=== PATIENT | female | born 1975 | race Caucasian/White ===

== ENCOUNTER 2018-07-07 11:02 | Emergency (ER) | payer OTHER ==
[~2018-07-07] VITALS: Ht 162.6 cm; Wt 53.1 kg
[~2018-07-07 11:02] MED LIST: CALC1.25T PO; CEPH500 PO; CHLO25 PO; ERGO50000 PO; GABA100 PO; HYDACE5 PO; IBUP800 PO; INSN100I SC; INSR10I SC; INSULANI SC; INSULANPEN SC; INSULIN; LANTUS; LORA1 PO; MULVITMINE PO; OMEP20ER PO; PANCREAZE; PROM25 PO; Pepcid40 MG PO; RXCLIN PO; [UNRECOGNIZED DRUG - REMARK]
[2018-07-07 11:54] LABS: BASOPHILS ABSOLUTE AUTO 0.03 K/mm3 (0.00-0.23); BASOPHILS PERCENT AUTO 1 % (0-2); EOSINOPHILS ABSOLUTE AUTO 0.03 K/mm3 (0.00-0.68); EOSINOPHILS PERCENT AUTO 1 % (0-6); Hematocrit 42.1 % (33.0-51.0); IMMATURE GRAN ABSOLUTE AUTO 0.04 K/mm3 (0.00-0.10); IMMATURE GRAN PERCENT AUTO 1 % (0-1); LYMPHOCYTES ABSOLUTE AUTO 1.47 K/mm3 (0.84-5.20); LYMPHOCYTES PERCENT AUTO 42 % (21-46); MONOCYTES ABSOLUTE AUTO 0.32 K/mm3 (0.16-1.47); MONOCYTES PERCENT AUTO 9 % (4-13); Mean Corpuscular HGB 35.6 pg (26.0-34.0); Mean Corpuscular HGB Conc 33.3 g/dL (31.5-36.5); Mean Corpuscular Volume 107 fL (80-100); Mean Platelet Volume 11.2 fL (9.1-12.4); NEUTROPHILS ABSOLUTE AUTO 1.59 K/mm3 (1.96-9.15); NEUTROPHILS PERCENT AUTO 46 % (41-73); Platelet Count 150 K/mm3 (150-400); RDW Coefficient Variation 12.6 % (11.7-14.2); RDW Standard Deviation 50.5 fL (35.1-46.3); Red Blood Cell Count 3.93 M/mm3 (3.80-5.20); White Blood Cell Count 3.48 K/mm3 (4.00-11.30)
[2018-07-07 12:05] LABS: Ethanol (Alcohol), Blood, Med 30 mg/dL
[2018-07-07 12:06] LABS: Alanine Aminotransfer (ALT/SGP 56 U/L (12-78); Albumin, Blood 3.3 g/dL (3.4-5.0); Albumin/Globulin Ratio 1.1 (0.8-1.8); Alk Phos 201 U/L (50-136); Anion Gap 6 mmol/L (6-16); Aspartate Aminotrans (AST/SGOT 75 U/L (12-37); Bilirubin, Total 0.1 mg/dL (0.1-1.0); Blood Urea Nitrogen 12 mg/dL (8-24); Bun/Creatinine Ratio 29.6 (12.0-20.0); CO2, Blood 28 mmol/L (21-32); Chloride, Blood 106 mmol/L (98-108); Creatinine, Blood 0.41 mg/dL (0.40-1.00); Glomerular Filtration Rate >60 (60-); Glucose, Blood 143 mg/dL (70-99); Potassium, Blood 3.7 mmol/L (3.5-5.5); Sodium, Blood 140 mmol/L (136-145); Total Protein, Blood 6.3 g/dL (6.4-8.2)
[2018-07-07 15:35] LABS: U Amphetamine Screen DETECTED; U Barbituate Screen Not Detected; U Benzodiazapine Screen Not Detected; U Cocaine Screen Not Detected; U Methamphetamine Screen DETECTED
[2018-07-07 15:36] LABS: U Buprenorphine Screen Not Detected; U Cannabinoids Screen Not Detected; U Methadone Screen Not Detected; U Opiates Screen Not Detected; U Oxycodone Screen Not Detected; U Phencyclidine Screen Not Detected; U Propoxyphene Screen Not Detected
== END 2018-07-07 16:39 | disposition home or self-care (01) ==
LOC: ER 11:02
PROVIDERS: Emergency Medicine
DX: E11.65 Type 2 diabetes mellitus with hyperglycemia (principal); F19.10 Other psychoactive substance abuse, uncomplicated; E11.649 Type 2 diabetes mellitus with hypoglycemia without coma; R41.82 Altered mental status, unspecified; Z88.2 Allergy status to sulfonamides; Z88.8 Allergy status to other drugs, medicaments and biological substances; Z88.1 Allergy status to other antibiotic agents; Z79.899 Other long term (current) drug therapy; Z79.4 Long term (current) use of insulin; F32.9 Major depressive disorder, single episode, unspecified; K21.9 Gastro-esophageal reflux disease without esophagitis; F17.210 Nicotine dependence, cigarettes, uncomplicated
CPT/HCPCS: 70450; 80053; 82947; 83690; 85025; 96365; 96366; 99285-25; G0480; J3411; J3475; J7042

== ENCOUNTER 2018-07-09 04:54 | Emergency (ER) | payer OTHER ==
[~2018-07-09] VITALS: Ht 162.6 cm; Wt 53.1 kg
[2018-07-09 05:42] LABS: BASOPHILS ABSOLUTE AUTO 0.03 K/mm3 (0.00-0.23); BASOPHILS PERCENT AUTO 1 % (0-2); EOSINOPHILS ABSOLUTE AUTO 0.02 K/mm3 (0.00-0.68); EOSINOPHILS PERCENT AUTO 0 % (0-6); Hematocrit 39.8 % (33.0-51.0); Hemoglobin 13.7 g/dL (11.5-16.0); IMMATURE GRAN ABSOLUTE AUTO 0.02 K/mm3 (0.00-0.10); IMMATURE GRAN PERCENT AUTO 0 % (0-1); LYMPHOCYTES PERCENT AUTO 48 % (21-46); MONOCYTES PERCENT AUTO 10 % (4-13); Mean Corpuscular HGB 35.3 pg (26.0-34.0); Mean Corpuscular HGB Conc 34.4 g/dL (31.5-36.5); Mean Platelet Volume 11.2 fL (9.1-12.4); NEUTROPHILS ABSOLUTE AUTO 2.06 K/mm3 (1.96-9.15); NEUTROPHILS PERCENT AUTO 41 % (41-73); Platelet Count 187 K/mm3 (150-400); RDW Coefficient Variation 12.5 % (11.7-14.2); RDW Standard Deviation 47.2 fL (35.1-46.3); Red Blood Cell Count 3.88 M/mm3 (3.80-5.20); White Blood Cell Count 5.03 K/mm3 (4.00-11.30)
[2018-07-09 05:50] LABS: Mean Corpuscular Volume 103 fL (80-100)
[2018-07-09 05:53] LABS: Magnesium, Blood 1.8 mg/dL (1.6-2.4)
[2018-07-09 05:56] LABS: Alanine Aminotransfer (ALT/SGP 52 U/L (12-78); Albumin, Blood 3.2 g/dL (3.4-5.0); Albumin/Globulin Ratio 1.1 (0.8-1.8); Alk Phos 179 U/L (50-136); Anion Gap 3 mmol/L (6-16); Aspartate Aminotrans (AST/SGOT 69 U/L (12-37); Bilirubin, Total 0.4 mg/dL (0.1-1.0); Blood Urea Nitrogen 14 mg/dL (8-24); Bun/Creatinine Ratio 34.3 (12.0-20.0); CO2, Blood 31 mmol/L (21-32); Calcium, Blood 7.8 mg/dL (8.5-10.1); Chloride, Blood 102 mmol/L (98-108); Creatinine, Blood 0.41 mg/dL (0.40-1.00); Ethanol (Alcohol), Blood, Med <3 mg/dL; Glomerular Filtration Rate >60 (60-); Glucose, Blood 219 mg/dL (70-99); Potassium, Blood 3.3 mmol/L (3.5-5.5); Sodium, Blood 136 mmol/L (136-145); Total Protein, Blood 6.2 g/dL (6.4-8.2)
== END 2018-07-09 06:58 | disposition home or self-care (01) ==
LOC: ER 04:54
PROVIDERS: Emergency Medicine
DX: E11.649 Type 2 diabetes mellitus with hypoglycemia without coma (principal); K21.9 Gastro-esophageal reflux disease without esophagitis; J44.9 Chronic obstructive pulmonary disease, unspecified; F17.210 Nicotine dependence, cigarettes, uncomplicated; Z79.899 Other long term (current) drug therapy; Z79.4 Long term (current) use of insulin
CPT/HCPCS: 36415; 80053; 82947; 83690; 83735; 85025; 96374; 96375; 99285-25; G0480; J0360

== ENCOUNTER 2019-01-22 01:15 | Emergency (ER) | payer OTHER | END 2019-01-22 02:35 | disposition left against medical advice (07) | LOC: ER 01:15 | DX: Z53.21 Procedure and treatment not carried out due to patient leaving prior to being seen by health care provider (principal) ==

== ENCOUNTER → 2019-01-22 | Outpatient (CLI) | payer OTHER ==
[~2019-01-22] MED LIST changes: +ALBU90OI6 INH; +BASAGLAR K100 UNIT/1 PO; +CETI5 PO; +EQ IBUPROFEN P1 EACH PO; +Flonase 0.05% N16 GM; +HYDPAM25 PO; +PANT40 PO; +Pepto-Bism525 MG/15 PO; +TUMS500 MG PO
== END | disposition home or self-care (01) ==
LOC: LAB SHORT 15:43 → LAB 15:43
DX: L03.031 Cellulitis of right toe (principal)
CPT/HCPCS: 87070; 87077; 87147; 87186; 87205

== ENCOUNTER 2019-02-10 00:50 | Day surgery (SDC) | payer OTHER | END 2019-02-10 23:03 | disposition home or self-care (01) | LOC: WOUND 00:50 | DX: E10.621 Type 1 diabetes mellitus with foot ulcer (principal); L97.512 Non-pressure chronic ulcer of other part of right foot with fat layer exposed; E55.9 Vitamin D deficiency, unspecified; F17.200 Nicotine dependence, unspecified, uncomplicated; I10 Essential (primary) hypertension; K86.1 Other chronic pancreatitis | CPT/HCPCS: 87071; 87075; 87077; 87147; 87186; 87205; G0463 ==

== ENCOUNTER 2019-02-14 00:05 | Day surgery (SDC) | payer OTHER | END 2019-02-14 22:35 | disposition home or self-care (01) | LOC: WOUND 00:05 | DX: E10.621 Type 1 diabetes mellitus with foot ulcer (principal); L97.511 Non-pressure chronic ulcer of other part of right foot limited to breakdown of skin; S91.302A Unspecified open wound, left foot, initial encounter; I10 Essential (primary) hypertension; E78.1 Pure hyperglyceridemia; F17.200 Nicotine dependence, unspecified, uncomplicated; Z88.1 Allergy status to other antibiotic agents; Z88.2 Allergy status to sulfonamides; Z88.8 Allergy status to other drugs, medicaments and biological substances; Z79.4 Long term (current) use of insulin; Z79.899 Other long term (current) drug therapy; X58.XXXA Exposure to other specified factors, initial encounter ==

== ENCOUNTER 2019-02-27 11:03 | Day surgery (SDC) | payer OTHER | END 2019-02-27 22:40 | disposition home or self-care (01) | LOC: WOUND 11:03 | DX: E10.621 Type 1 diabetes mellitus with foot ulcer (principal); L97.512 Non-pressure chronic ulcer of other part of right foot with fat layer exposed; I10 Essential (primary) hypertension; F17.200 Nicotine dependence, unspecified, uncomplicated ==

== ENCOUNTER 2019-03-06 00:30 | Day surgery (SDC) | payer OTHER | END 2019-03-06 22:52 | disposition home or self-care (01) | LOC: WOUND 00:30 | DX: E10.621 Type 1 diabetes mellitus with foot ulcer (principal); L97.512 Non-pressure chronic ulcer of other part of right foot with fat layer exposed; I10 Essential (primary) hypertension; F17.200 Nicotine dependence, unspecified, uncomplicated; E78.1 Pure hyperglyceridemia; Z79.899 Other long term (current) drug therapy ==

== ENCOUNTER 2019-03-13 14:21 | Day surgery (SDC) | payer OTHER | END 2019-03-13 22:59 | disposition home or self-care (01) | LOC: WOUND 14:21 | DX: E10.621 Type 1 diabetes mellitus with foot ulcer (principal); L97.512 Non-pressure chronic ulcer of other part of right foot with fat layer exposed; I10 Essential (primary) hypertension; F17.210 Nicotine dependence, cigarettes, uncomplicated; Z79.899 Other long term (current) drug therapy ==

== ENCOUNTER 2019-03-20 13:53 | Day surgery (SDC) | payer OTHER | END 2019-03-20 23:02 | disposition home or self-care (01) | LOC: WOUND 13:53 | DX: E10.621 Type 1 diabetes mellitus with foot ulcer (principal); L97.519 Non-pressure chronic ulcer of other part of right foot with unspecified severity; E10.52 Type 1 diabetes mellitus with diabetic peripheral angiopathy with gangrene; I96 Gangrene, not elsewhere classified; E55.9 Vitamin D deficiency, unspecified; E78.1 Pure hyperglyceridemia; F17.200 Nicotine dependence, unspecified, uncomplicated; I10 Essential (primary) hypertension; K86.1 Other chronic pancreatitis; Z88.1 Allergy status to other antibiotic agents; Z88.2 Allergy status to sulfonamides; Z88.8 Allergy status to other drugs, medicaments and biological substances; Z79.4 Long term (current) use of insulin; Z79.51 Long term (current) use of inhaled steroids; Z79.899 Other long term (current) drug therapy ==

== ENCOUNTER 2019-03-28 10:51 | Day surgery (SDC) | payer OTHER | END 2019-03-28 22:57 | disposition home or self-care (01) | LOC: WOUND 10:51 | DX: E10.621 Type 1 diabetes mellitus with foot ulcer (principal); L97.512 Non-pressure chronic ulcer of other part of right foot with fat layer exposed; I10 Essential (primary) hypertension; E78.1 Pure hyperglyceridemia; F17.200 Nicotine dependence, unspecified, uncomplicated; Z79.899 Other long term (current) drug therapy | CPT/HCPCS: G0463 ==

== ENCOUNTER 2019-04-30 13:43 | Emergency (ER) | payer OTHER ==
[~2019-04-30] VITALS: Ht 162.6 cm; Wt 47.8 kg
[2019-04-30 14:07] LABS: Source, Urine Clean Catch
[2019-04-30 14:17] LABS: Bilirubin, Urine Neg (Neg); Blood, Urine 5+ (Neg); Glucose Qualitative, Urine 4+ (Neg); Ketones, Urine 2+ (Neg); Leukocyte Esterase, Urine 2+ (Neg); Nitrite, Urine Neg (Neg); Protein, Urine 2+ (Neg); Urobilinogen, Urine NORM (Normal)
[2019-04-30 14:24] LABS: BASOPHILS ABSOLUTE AUTO 0.09 K/mm3 (0.00-0.23); BASOPHILS PERCENT AUTO 1 % (0-2); EOSINOPHILS ABSOLUTE AUTO 0.02 K/mm3 (0.00-0.68); EOSINOPHILS PERCENT AUTO 0 % (0-6); Hematocrit 41.4 % (33.0-51.0); Hemoglobin 14.4 g/dL (11.5-16.0); IMMATURE GRAN ABSOLUTE AUTO 0.23 K/mm3 (0.00-0.10); IMMATURE GRAN PERCENT AUTO 2 % (0-1); LYMPHOCYTES ABSOLUTE AUTO 1.61 K/mm3 (0.84-5.20); LYMPHOCYTES PERCENT AUTO 14 % (21-46); MONOCYTES PERCENT AUTO 7 % (4-13); Mean Corpuscular HGB Conc 34.8 g/dL (31.5-36.5); Mean Corpuscular Volume 98 fL (80-100); Mean Platelet Volume 11.3 fL (9.1-12.4); NEUTROPHILS ABSOLUTE AUTO 8.89 K/mm3 (1.96-9.15); NEUTROPHILS PERCENT AUTO 76 % (41-73); Platelet Count 201 K/mm3 (150-400); RDW Coefficient Variation 11.4 % (11.7-14.2); RDW Standard Deviation 41.1 fL (35.1-46.3); Red Blood Cell Count 4.23 M/mm3 (3.80-5.20); White Blood Cell Count 11.64 K/mm3 (4.00-11.30)
[2019-04-30 14:38] LABS: Appearance, Urine Hazy (Clear); Color, Urine Yellow (P-Yellow)
[2019-04-30 14:39] LABS: White Blood Cells, Urine 25-50 /hpf (0-5)
[2019-04-30 14:40] LABS: Bacteria Many /hpf; Squamous Epithelial Cells Few /hpf (Few)
[2019-04-30 14:43] LABS: Alanine Aminotransfer (ALT/SGP 18 U/L (12-78); Albumin, Blood 2.4 g/dL (3.4-5.0); Albumin/Globulin Ratio 0.6 (0.8-1.8); Alk Phos 241 U/L (50-136); Anion Gap 14 mmol/L (6-16); Aspartate Aminotrans (AST/SGOT 14 U/L (12-37); Bilirubin, Total 0.8 mg/dL (0.1-1.0); Blood Urea Nitrogen 15 mg/dL (8-24); Bun/Creatinine Ratio 20.7 (12.0-20.0); CO2, Blood 25 mmol/L (21-32); Calcium, Blood 8.7 mg/dL (8.5-10.1); Chloride, Blood 89 mmol/L (98-108); Creatinine, Blood 0.72 mg/dL (0.40-1.00); Globulin, Blood 4.3 g/dL (2.2-4.0); Glomerular Filtration Rate >60 (60-); Glucose, Blood 457 mg/dL (70-99); Sodium, Blood 128 mmol/L (136-145); Total Protein, Blood 6.7 g/dL (6.4-8.2); Troponin I <0.015 ng/mL (0.000-0.040)
[2019-04-30] MEDS ORDERED: CEFP200 PO (17:14)
[2019-04-30] MEDS ORDERED: ONDA4ODT MM (17:14)
== END 2019-04-30 17:38 | disposition home or self-care (01) ==
LOC: ER 13:43
PROVIDERS: Physician Assistant
DX: N39.0 Urinary tract infection, site not specified (principal); F17.210 Nicotine dependence, cigarettes, uncomplicated; Z88.1 Allergy status to other antibiotic agents; Z88.2 Allergy status to sulfonamides; Z88.8 Allergy status to other drugs, medicaments and biological substances; Z79.899 Other long term (current) drug therapy
CPT/HCPCS: 36415; 71046; 80053; 81001; 83690; 84484; 85025; 87077; 87086; 87186; 93005; 93010; 96361; 96374; 99284-25; A9270-GY; J2405; J7030

== ENCOUNTER → 2019-09-21 | Outpatient (CLI) | payer OTHER ==
[~2019-09-21] MED LIST changes: +CEFP200 PO; +ONDA4ODT MM
== END | disposition home or self-care (01) ==
LOC: LAB SHORT 17:58 → LAB 17:58
DX: R30.9 Painful micturition, unspecified (principal)
CPT/HCPCS: 87077; 87086; 87186

== ENCOUNTER → 2020-03-28 | Outpatient (CLI) | payer OTHER ==
[~2020-03-28] MED LIST changes: +ASPI81CH PO; +ATOR40TA PO; +B-1100 M2 PO; +BUSP5 PO; +CLOP75 PO; +CYCLOBENZAPRINE5 MG PO; +DISU250 PO; +FAMO20 PO; +FOLI1 PO; +FURO40 PO; -GABA100 PO; +GABA300 PO; +HUMULIN N100 UNIT/6 SC; -HYDPAM25 PO; +HYDROCODONE-AC1 EA10 PO; +Hydroxyzine HCl50 MG PO; +INSULIN LI100 UNIT/6 SC; +Keppra750 MG PO; +METF500C PO; +METO50ER PO; +NICO21TP TOP; +Norco 5-325 Ta1 EACH PO; +ONDA4ODT SL; +ONE-A-DAY PRO200 MCG PO; -PANCREAZE; +PANCREAZE DR 11 EAC2 PO; +VANCOCIN HCL250 MG PO
== END | disposition home or self-care (01) ==
LOC: LAB 17:00 → LAB SHORT 17:00
DX: R30.9 Painful micturition, unspecified (principal)
CPT/HCPCS: 87077; 87086; 87186

== ENCOUNTER 2020-04-30 15:17 | Emergency (ER) | payer OTHER ==
[~2020-04-30] VITALS: Ht 162.6 cm; Wt 43.1 kg
[~2020-04-30 15:17] MED LIST changes: -ALBU90OI6 INH; -ASPI81CH PO; -ATOR40TA PO; -B-1100 M2 PO; -BUSP5 PO; -CLOP75 PO; -CYCLOBENZAPRINE5 MG PO; -DISU250 PO; -FAMO20 PO; -FOLI1 PO; -FURO40 PO; -GABA300 PO; -HUMULIN N100 UNIT/6 SC; -HYDROCODONE-AC1 EA10 PO; -Hydroxyzine HCl50 MG PO; -INSULIN LI100 UNIT/6 SC; -Keppra750 MG PO; -METF500C PO; -METO50ER PO; -NICO21TP TOP; -Norco 5-325 Ta1 EACH PO; -ONDA4ODT SL; -ONE-A-DAY PRO200 MCG PO; -PANCREAZE DR 11 EAC2 PO; -VANCOCIN HCL250 MG PO
[2020-04-30 16:00] LABS: BASOPHILS ABSOLUTE AUTO 0.02 K/mm3 (0.00-0.23); BASOPHILS PERCENT AUTO 1 % (0-2); EOSINOPHILS ABSOLUTE AUTO 0.02 K/mm3 (0.00-0.68); EOSINOPHILS PERCENT AUTO 1 % (0-6); Hematocrit 28.3 % (33.0-51.0); Hemoglobin 9.5 g/dL (11.5-16.0); IMMATURE GRAN ABSOLUTE AUTO 0.01 K/mm3 (0.00-0.10); IMMATURE GRAN PERCENT AUTO 0 % (0-1); LYMPHOCYTES ABSOLUTE AUTO 2.13 K/mm3 (0.84-5.20); LYMPHOCYTES PERCENT AUTO 63 % (21-46); MONOCYTES ABSOLUTE AUTO 0.14 K/mm3 (0.16-1.47); MONOCYTES PERCENT AUTO 4 % (4-13); Mean Corpuscular HGB 33.2 pg (26.0-34.0); Mean Corpuscular HGB Conc 33.6 g/dL (31.5-36.5); Mean Corpuscular Volume 99 fL (80-100); Mean Platelet Volume 10.1 fL (9.1-12.4); NEUTROPHILS ABSOLUTE AUTO 1.09 K/mm3 (1.96-9.15); NEUTROPHILS PERCENT AUTO 32 % (41-73); Platelet Count 202 K/mm3 (150-400); RDW Coefficient Variation 14.7 % (11.7-14.2); RDW Standard Deviation 53.7 fL (35.1-46.3); Red Blood Cell Count 2.86 M/mm3 (3.80-5.20); White Blood Cell Count 3.41 K/mm3 (4.00-11.30)
[2020-04-30 16:25] LABS: Alanine Aminotransfer (ALT/SGP 36 U/L (12-78); Albumin, Blood 2.6 g/dL (3.4-5.0); Albumin/Globulin Ratio 0.7 (0.8-1.8); Alk Phos 1269 U/L (50-136); Anion Gap 10 mmol/L (6-16); Aspartate Aminotrans (AST/SGOT 60 U/L (12-37); Bilirubin, Total 0.5 mg/dL (0.1-1.0); Blood Urea Nitrogen 13 mg/dL (8-24); Bun/Creatinine Ratio 15.3 (12.0-20.0); CO2, Blood 28 mmol/L (21-32); Calcium, Blood 8.7 mg/dL (8.5-10.1); Chloride, Blood 99 mmol/L (98-108); Creatinine, Blood 0.85 mg/dL (0.40-1.00); Globulin, Blood 3.9 g/dL (2.2-4.0); Glomerular Filtration Rate >60 (60-); Glucose, Blood 162 mg/dL (70-99); Potassium, Blood 3.5 mmol/L (3.5-5.5); Sodium, Blood 137 mmol/L (136-145); Total Protein, Blood 6.5 g/dL (6.4-8.2)
[2020-04-30 17:03] LABS: Source, Urine Clean Catch
[2020-04-30 17:05] LABS: Appearance, Urine Cloudy (Clear); Bilirubin, Urine Neg (Neg); Blood, Urine 2+ (Neg); Color, Urine Yellow (P-Yellow); Glucose Qualitative, Urine Neg (Neg); Ketones, Urine Neg (Neg); Leukocyte Esterase, Urine 3+ (Neg); Nitrite, Urine Neg (Neg); Protein, Urine 2+ (Neg); Urobilinogen, Urine NORM (Normal)
[2020-04-30 17:12] LABS: Bacteria Many /hpf; Squamous Epithelial Cells Few /hpf (Few); White Blood Cells, Urine 50-100 /hpf (0-5)
== END 2020-04-30 18:33 | disposition left against medical advice (07) ==
LOC: ER 15:17
PROVIDERS: Physician Assistant
DX: R11.2 Nausea with vomiting, unspecified (principal); R10.9 Unspecified abdominal pain; Z53.21 Procedure and treatment not carried out due to patient leaving prior to being seen by health care provider; Z79.4 Long term (current) use of insulin; Z79.899 Other long term (current) drug therapy
CPT/HCPCS: 80053; 81001; 83690; 85025; 87077; 87086; 87186; 99284

== ENCOUNTER 2020-05-13 15:39 | Inpatient (IN) | payer OTHER ==
[~2020-05-13] VITALS: Ht 162.6 cm; Wt 47.0 kg
[2020-05-13 16:12] LABS: Source, Urine Catheter
[2020-05-13 16:33] LABS: Appearance, Urine Hazy (Clear); Bilirubin, Urine Neg (Neg); Blood, Urine 3+ (Neg); Color, Urine Yellow (P-Yellow); Glucose Qualitative, Urine 4+ (Neg); Ketones, Urine 1+ (Neg); Leukocyte Esterase, Urine 3+ (Neg); Nitrite, Urine Pos (Neg); Protein, Urine 3+ (Neg); Specific Gravity, Urine 1.015 (1.003-1.022); Urobilinogen, Urine NORM (Normal)
[2020-05-13 16:41] LABS: Red Blood Cells, Urine 0-2 /hpf (0-2); Squamous Epithelial Cells Mod /hpf (Few); White Blood Cells, Urine 25-50 /hpf (0-5)
[2020-05-13 16:42] LABS: Bacteria Many /hpf
[2020-05-13 17:12] LABS: Hematocrit 23.5 % (33.0-51.0); Hemoglobin 7.4 g/dL (11.5-16.0); Mean Corpuscular HGB 33.5 pg (26.0-34.0); Mean Corpuscular HGB Conc 31.5 g/dL (31.5-36.5); Mean Corpuscular Volume 106 fL (80-100); Mean Platelet Volume 10.2 fL (9.1-12.4); Platelet Count 146 K/mm3 (150-400); RDW Coefficient Variation 14.4 % (11.7-14.2); RDW Standard Deviation 55.8 fL (35.1-46.3); Red Blood Cell Count 2.21 M/mm3 (3.80-5.20); White Blood Cell Count 2.79 K/mm3 (4.00-11.30)
[2020-05-13 17:33] LABS: BASOPHILS PERCENT MAN 0 % (0-2); EOSINOPHILS ABSOLUTE MAN 0.05 K/mm3 (0.00-0.68); EOSINOPHILS PERCENT MAN 2 % (0-6); LYMPHOCYTES PERCENT MAN 54 % (21-46); MONOCYTES ABSOLUTE MAN 0.02 K/mm3 (0.16-1.47); MONOCYTES PERCENT MAN 1 % (4-13); NEUTROPHILS ABSOLUTE MAN 1.19 K/mm3 (1.96-9.15); SEG NEUTROPHILS PERCENT MAN 43 % (41-73); TOTAL CELLS COUNTED 100
[2020-05-13 17:35] LABS: Albumin, Blood 1.9 g/dL (3.4-5.0); Albumin/Globulin Ratio 0.5 (0.8-1.8); Bilirubin, Total 0.2 mg/dL (0.1-1.0); Bun/Creatinine Ratio 5.6 (12.0-20.0); Calcium, Blood 8.3 mg/dL (8.5-10.1); Creatinine, Blood 2.32 mg/dL (0.40-1.00); Globulin, Blood 3.6 g/dL (2.2-4.0); Magnesium, Blood 1.8 mg/dL (1.6-2.4); Phosphorus, Blood 3.5 mg/dL (2.5-4.9); Potassium, Blood 3.4 mmol/L (3.5-5.5); Total Protein, Blood 5.5 g/dL (6.4-8.2)
[2020-05-13] MEDS ORDERED: GABA300 PO (18:44)
[2020-05-13] MEDS ORDERED: PANCREAZE DR 11 EAC2 PO (18:44)
[2020-05-13] MEDS ORDERED: Hydroxyzine HCl50 MG PO (18:45)
[2020-05-13] MEDS ORDERED: METO50ER PO (18:46)
[2020-05-13] MEDS ORDERED: METF500C PO (18:46)
[2020-05-13] MEDS ORDERED: FOLI1 PO (18:47)
[2020-05-13] MEDS ORDERED: ONDA4ODT SL (18:47)
[2020-05-13] MEDS ORDERED: ALBU90OI6 INH (18:48)
[2020-05-13] MEDS ORDERED: FAMO20 PO (18:58)
--- NOTE | 2020-05-13 20:00 | NUR ---
BEENA ARRIVED TO THE FLOOR VIA GURNEY. TRANSFERRED TO BED. AOX3, PLEASANT AND COOPERATIVE. VERY ANXIOUS. TREMORS. HISTORY OF ETOH, DRINKS A PINT A DAY FOR THE PAST YEAR. NAUSEA AND VOMITING X5 DAYS. GUIAC NOTED IN ER. ABDOMINAL PAIN, MILD DISTENTION, HYPOACTIVE BOWEL TONES, POOR APPETITE, LOW WEIGHT. POOR SKIN TURGUR, DRY, NO SKIN BREAKDOWN. LUNGS CLEAR. HR SINUS. DENIES ANY PAIN OR DISCOMFORT. CIWA SCORE 12. WILL GIVE ATIVAN TO HELP. BLOOD AND ALBUMIN INFUSING. ALBUMIN COMPLETED WHILE IN ROOM. STARTED SANDASTATIN, POTASSIUM AND MULTIVITIAMIN BAG. WILL START PROTONIC WHEN BLOOD IS COMPLETED. CALL LIGHT WITH IN REACH.
[2020-05-14 01:48] LABS: BASOPHILS ABSOLUTE AUTO 0.03 K/mm3 (0.00-0.23); BASOPHILS PERCENT AUTO 1 % (0-2); EOSINOPHILS ABSOLUTE AUTO 0.07 K/mm3 (0.00-0.68); EOSINOPHILS PERCENT AUTO 2 % (0-6); Hematocrit 27.6 % (33.0-51.0); Hemoglobin 8.5 g/dL (11.5-16.0); IMMATURE GRAN ABSOLUTE AUTO 0.05 K/mm3 (0.00-0.10); IMMATURE GRAN PERCENT AUTO 2 % (0-1); LYMPHOCYTES ABSOLUTE AUTO 1.41 K/mm3 (0.84-5.20); LYMPHOCYTES PERCENT AUTO 41 % (21-46); MONOCYTES ABSOLUTE AUTO 0.21 K/mm3 (0.16-1.47); MONOCYTES PERCENT AUTO 6 % (4-13); Mean Corpuscular HGB 31.7 pg (26.0-34.0); Mean Corpuscular HGB Conc 30.8 g/dL (31.5-36.5); Mean Corpuscular Volume 103 fL (80-100); Mean Platelet Volume 10.2 fL (9.1-12.4); NEUTROPHILS ABSOLUTE AUTO 1.64 K/mm3 (1.96-9.15); NEUTROPHILS PERCENT AUTO 48 % (41-73); Platelet Count 121 K/mm3 (150-400); RDW Coefficient Variation 16.6 % (11.7-14.2); RDW Standard Deviation 63.5 fL (35.1-46.3); Red Blood Cell Count 2.68 M/mm3 (3.80-5.20); White Blood Cell Count 3.41 K/mm3 (4.00-11.30)
[2020-05-14 02:21] LABS: Albumin, Blood 2.3 g/dL (3.4-5.0); Albumin/Globulin Ratio 0.7 (0.8-1.8); Bilirubin, Total 0.5 mg/dL (0.1-1.0); Bun/Creatinine Ratio 5.9 (12.0-20.0); Calcium, Blood 7.7 mg/dL (8.5-10.1); Creatinine, Blood 2.03 mg/dL (0.40-1.00); Globulin, Blood 3.1 g/dL (2.2-4.0); Potassium, Blood 4.7 mmol/L (3.5-5.5); Total Protein, Blood 5.4 g/dL (6.4-8.2)
--- NOTE | 2020-05-14 05:43 | NUR ---
SHIFT SUMMARY: AOX3, VERY ANXIOUS ON ARRIVAL TO THE FLOOR, NAUSEA, VISUAL AND AUDITORY DISTURBANCES. CIWA 12. AFTER ADMISSION SHE WAS GIVEN 2MG OF ATIVAN WHICH SHE HAS SLEPT ALL NIGHT SINCE THEM. SHE DOES WAKE UP TO HER NAME. 1 UNIT OF PRBC GIVEN. 1 BANNANA BAG, POTASSIUM AND SANDASTATIN ALSO GIVEN. SHE HAS PROTONIX INFUSING AT 10ML/HR. ABDOMIN TENDER, SLIGHT DISTENTION, HYPOACTIVE BT. SKIN TURGOR POOR, POOR APPEITITE, POOR FLUID INTAKE, BM IN ER. VS WNL, AFEBRILE. TELE SHOWED SINUS. CIWA NOW 1, MIGHT CHANGE AFTER SHE IS MORE AWAKE. CALL LIGHT IS IN REACH, NO OTHER CHANGES TO REPORT.
[2020-05-14 10:08] LABS: Hematocrit 29.2 % (33.0-51.0); Hemoglobin 9.4 g/dL (11.5-16.0)
--- NOTE | 2020-05-14 13:43 | NUR ---
PT'S BP 175/114, ALL OTHER VSS. CALLED DR ALBERTO, SHE ORDERED RESTART OF PT'S HOME DOSE METOPROLOL, RESTARTING FIRST DOSE NOW, NEXT DOSE TOMORROW MORNING
--- NOTE | 2020-05-14 14:44 | NUR ---
BP 197/124, CALLED DR ALBERTO AND INFORMED. PT ASTYMPTOMATIC EXCEPT A SLIGHT HEADACHE, BUT PT IS WITHDRAWING, SO THIS COULD BE DUE TO THAT. DR ALBERTO SAYS SHE WILL TALK TO DR FRYE AND DETERMINE WHAT TO DO
--- NOTE | 2020-05-14 16:52 | NUR ---
CALLED DR ALBERTO AND INFORMED HER OF CBG OF 20 AND SHE ORDERED THAT PT BE CHANGED BACK TO LOW SLIDING SCALE, LIKELY A BRITTLE DIABETIC. PT ABLE TO DRINK JUICE AND EATING CRACKERS TO TREAT HYPOGLYCEMIA. ALSO TALKED TO DR ALBERTO ABOUT BP 178/116. SHE IS AWARE, ORDERED PRN IV LOBETALOL IF SYSTOLIC OVER 200
--- NOTE | 2020-05-14 17:54 | NUR ---
ADMIT: 05/13/20 DISCHARGE: DX: mega CC: cpeabody NEELIMA CALL: RESIDENCE: home CAREGIVER: Emergency contact: DAVID CRAIG ([place]) DX: chronic pancreatitis, htn, reflux , DM1, substance abuse, DME: pullups, cane, dm supplies CCM: no record HOME HEALTH: no record SUMMARY: Admit 05/13/20 05/14/20 Patient sleeping upon by visit. Left my name on White board for care coordination. Per Dr Soriano, Jena would like to stop drinking. I will ask aLcie from [facility] to visit with Jena to discuss. Needs GI work up, ED request denied, Dr Soriano will request again. Observation status, eta discharge Wednesday or . ASSESSMENT: 1. 45-year-old female coming in with possible sepsis in the setting of a persistent urinary tract infection. She has had recurrent urinary tract infections over the last several weeks.
--- NOTE | 2020-05-14 18:57 | NUR ---
RAPID RESPONSE 1641 PRE-DINNER CBG SHOWED 20. JUICE GIVEN X3, NÉSTOR CRACKERS GIVEN, PT AWAKE AND ABLE TO TAKE PO INTAKE. CBG 1700 DOWN TO 19 DESPITE JUICE. ENTERTAINMENT & MEDIA CORRESPONDENT CALLED, GLUCAGEN GIVEN AND D50. CBG CONSTANTINO TO 219. DR ALBERTO AT BEDSIDE DURING ENTERTAINMENT & MEDIA CORRESPONDENT, SHE ORDERS TRANSFER OF PT TO PCU FOR CLOSER MONITORING.
--- NOTE | 2020-05-14 19:03 | NUR ---
SHIFT SUMMARY BEENA WAS SLEEPY THIS SHIFT. WOKE UP TO EAT MEALS AND GOT UP TO BSC WITH AO1/2 PEOPLE WITH GAIT BELT, FULLY CONTINENT. . BLOOD PRESSURE HIGH, (SEE NOTE) THIS AFTERNOON, DR ALBERTO CALLED. WITHDRAWL SYMPTOMS PRESENT WITH AUDITORY AND VISUAL HALLUCINATIONS, SOME SLIGHT TREMORS. GAVE IV ATIVAN X3 THIS SHIFT. PER DAUGHTER, PT GETS VERY LETHARGIC PRIOR TO HER EARLIER DTS THAT SHE HAD TO BE TRANSFERRED TO NEW [facility] AND BE PUT IN A MEDICALLY INDUCED COMA FOR. PT MOSTLY ORIENTED EXCEPT FOR THESE HALLUCINTIONS WHICH SHE REALIZES AREN'T REAL. CBG LOW OF 20 THIS SHIFT AFTER TRANSITIONING HER FROM LOW SLIDING SCALE TO MEDIUM SLIDING SCALE AT LUNCH. VERY BRITTLE DIABETIC. HAND SHOES SEWER CALLED (SEE NOTE). CALLED GI CONSULT WHICH WAS DECLINED (SEE NOTE). ARRIVED ON PCU FLOOR AT 1814 AND REPORT GIVEN AT BEDSIDE TO FAVIO
--- NOTE | 2020-05-14 19:25 | NUR ---
PT ARRIVED IN THE UNIT VIA HOSPITAL BED, BEDSIDE REPORT RECEIVED FROM JENNY BAIRD, PT IS HERE POST RAPID RESPONSE DUE TO HYPOGLYCEMIA AND IS NOW ON Q1HR CBG CHECKS, HX OF ETOH WITHDRAWAL ON CIWA SCORES. PT IS ALERT AND ORIENTED BUT IS LETHARGIC FALLS ASLEEP QUICK BUT IS AROUSABLE. LAST CBG WAS 272, D10 BAG ON STANDBY PER REPORT FOR HYPOGLYCEMIA. PT ON IV ABO FOR SEPSIS, OCREOTIDE RUNNING AT 25MLS/HR. DAUGHTER AT BEDSIDE DURING TRANSFER AWARE AND UPDATED REGARDING PT'S CARE. PT IS NOW EATING DINNER WITH NO ISSUES. ATIVAN DOSE WAS GIVEN PRIOR TO TRANSFER PER REPORT. VITALS HR 80'S, BP SYSTOLIC 150'S, SATS ABOVE 95% ON RA, AFEBRILE. REPORT GIVEN TO NOC SHIFT RN, BED ALARM ON FOR SAFETY.
[2020-05-15 02:20] LABS: Source, Urine Catheter
[2020-05-15 02:23] LABS: Bilirubin, Urine Neg (Neg); Blood, Urine 1+ (Neg); Glucose Qualitative, Urine 2+ (Neg); Ketones, Urine Neg (Neg); Leukocyte Esterase, Urine 2+ (Neg); Nitrite, Urine Neg (Neg); Protein, Urine 2+ (Neg); Specific Gravity, Urine 1.005 (1.003-1.022); Urobilinogen, Urine NORM (Normal)
[2020-05-15 02:25] LABS: Appearance, Urine Clear (Clear); Color, Urine Yellow (P-Yellow)
[2020-05-15 02:36] LABS: Bacteria Few /hpf; Red Blood Cells, Urine 0-2 /hpf (0-2); Squamous Epithelial Cells Not Seen /hpf (Few)
--- NOTE | 2020-05-15 02:56 | NUR ---
15 F NOBLE INSERTED WITHOUT COMPLICATIONS USING STERILE TECHNIQUE. URINE SAMPLE SENT TO LAB. SEE NOBLE CATH INSERTION FOR ACTUAL INSERTION TIME. PT HAD A BLADDER SCAN GREATER THAN 800 CC.
[2020-05-15 04:22] LABS: BASOPHILS ABSOLUTE AUTO 0.02 K/mm3 (0.00-0.23); BASOPHILS PERCENT AUTO 1 % (0-2); EOSINOPHILS PERCENT AUTO 3 % (0-6); Hematocrit 24.2 % (33.0-51.0); Hemoglobin 8.2 g/dL (11.5-16.0); Mean Corpuscular HGB 33.1 pg (26.0-34.0); Mean Corpuscular HGB Conc 33.9 g/dL (31.5-36.5); Mean Platelet Volume 10.8 fL (9.1-12.4); Platelet Count 117 K/mm3 (150-400); RDW Coefficient Variation 16.8 % (11.7-14.2); RDW Standard Deviation 60.3 fL (35.1-46.3); Red Blood Cell Count 2.48 M/mm3 (3.80-5.20); White Blood Cell Count 3.93 K/mm3 (4.00-11.30)
[2020-05-15 04:33] LABS: IMMATURE GRAN ABSOLUTE AUTO 0.02 K/mm3 (0.00-0.10); IMMATURE GRAN PERCENT AUTO 1 % (0-1); LYMPHOCYTES ABSOLUTE AUTO 1.69 K/mm3 (0.84-5.20); LYMPHOCYTES PERCENT AUTO 43 % (21-46); MONOCYTES ABSOLUTE AUTO 0.21 K/mm3 (0.16-1.47); MONOCYTES PERCENT AUTO 5 % (4-13); Mean Corpuscular Volume 98 fL (80-100); NEUTROPHILS ABSOLUTE AUTO 1.89 K/mm3 (1.96-9.15); NEUTROPHILS PERCENT AUTO 48 % (41-73)
[2020-05-15 05:02] LABS: Albumin/Globulin Ratio 0.6 (0.8-1.8); Bilirubin, Total 0.3 mg/dL (0.1-1.0); Bun/Creatinine Ratio 8.6 (12.0-20.0); Calcium, Blood 8.1 mg/dL (8.5-10.1); Creatinine, Blood 1.62 mg/dL (0.40-1.00); Globulin, Blood 3.2 g/dL (2.2-4.0); Potassium, Blood 3.8 mmol/L (3.5-5.5); Total Protein, Blood 5.2 g/dL (6.4-8.2)
--- NOTE | 2020-05-15 06:02 | NUR ---
CIWA VARIED FROM Q 2 HOURS - 4 HOURS TONIGHT, SEE CIWA CHARTING. NOBLE INSERTED LAST NOC DUE TO URINE RETENTION - SEE BLADDER SCAN RESULTS. NO S/S OF BLEEDING - PT HERE WITH GIB. PT'S SKIN COLOR IS PALE. PT IS FRAIL IN HER APPEARANCE. PT SLEPT APPX 6 -7 HOURS TONIGHT. NO ACUTE CHANGES THROUGHOUT THE NIGHT. BED ALARM ON. CALL LIGHT WITHIN REACH. FLUIDS AT BEDSIDE. BED IN LOW POSITION.
--- NOTE | 2020-05-15 12:08 | NUR ---
SUMMARY: Admit 05/13/20 05/15/20- per chart review with Dr. Soriano, pt is a brittle diabetic and has increased in confusion. Pt is also experiencing ETOH withdrawal. Met with pt, she appears very confused about her care. Nurse was in the room giving her medications. Pt requested some food from me. Nurse stated that she would get her something to eat. Pt not of sound mind to discuss her ETOH abuse and treatment options at this time. No est ETA for d/c at this time either. -lenora
--- NOTE | 2020-05-15 13:53 | NUR ---
PT IS ALERT TO SELF SOME CONFUSION NOTED, LETHARGIC AT TIMES. CIWA SCORES 10-12 ATIVAN AND LIBRIUM GIVEN PRN FOR WITHDRAWAL SYMPTOMS. PT ATE BREAKFAST WITH NO ISSUES SOMEHOW KNOCKED HER TRAY OFF OF HER TABLE PLATES AND UTENSILS FOUND BROKEN ON THE FLOOR WHEN PT WAS ASKED WHAT HAPPENED PT STATED SHE GOT UPSET AND KNOCKED THE TRAY OFF. CHARGE NURSE WAS IN THE ROOM REMINDED PT ABOUT HER BEHAVIOR, PT GOT SOMEHOW AGITATED WAS TEARY EYED SAYING SHE WAS SICK ATTEMPTED TO GET OUT OF BED, ATIVAN 2MG DOSE GIVEN AND PT GOT RESTED. MILD HALLUCINATION ALSO NOTED PT TRYING TO FEED HERSELF WITH NOTHING ON HER HANDS, PT THEN CONSISTENTLY ASKING FOR FOOD SNACKS GIVEN IN BETWEEN MEALS,CBG REMAINED ON THE 200-300 RANGE INSULIN LOW SLIDING SCALE DOSE WAS GIVEN. VITALS HAS BEEN STABLE, PT ON RA AFEBRILE. DENIES CHEST PAIN/PRESSURE HAS MILD HEADACHE. NO OTHER ISSUES OF THIS TIME. WILL CONTINUE TO MONITOR UNTIL END OF SHIFT
--- NOTE | 2020-05-15 18:38 | NUR ---
PT SUMMARY: SEE PREVIOUS NOTES. CIWA SCORE RANGING 10-13, PT REMAINS CONFUSED HAS VISUAL HALLUCINATIONS, MILD TREMORS, ATTEMPTING TO GET OUT OF BED. DAUGHTER WAS CALLED AND CAME IN TO VISIT PT, PT WAS EMOTIONAL AND TEARY EYED, TRYING TO TAKE OFF HER GOWN STATING SHE WANTS TO GO HOME, PT DOESN'T SEEM TO FULLY UNDERSTAND THAT SHE'S AT THE HOSPITAL AND IS SICK. DAUGHTER CAME IN TO HELP CALM THE PT DOWN, PT WAS ABLE TO EAT 100% OF HER DINNER, CBG STABLE AT 140'S. DR ALBERTO RECOMMENDED SNACK BETWEEN MEALS TO PREVENT HYPOGLYCEMIA. OCREOTIDE GTT RUNNING AT 25MLS/HR, CATHETER DRAINING PATENT VIA GRAVITY HAD 850MLS URINE OUT FOR THE SHIFT, NO REPORTED BM. PT RECEIVED LIBRIUM X2 DOSES AND ATIVAN X3 DOSES FOR THE SHIFT, PT IS NOW CURRENTLY IN BED RESTING, CALL LIGHTS IN REACH, BED ALARM ON FOR SAFETY, WILL REPORT TO ONCOMING SHIFT
[2020-05-16 04:09] LABS: BASOPHILS ABSOLUTE AUTO 0.02 K/mm3 (0.00-0.23); BASOPHILS PERCENT AUTO 1 % (0-2); EOSINOPHILS ABSOLUTE AUTO 0.07 K/mm3 (0.00-0.68); EOSINOPHILS PERCENT AUTO 2 % (0-6); Hematocrit 24.6 % (33.0-51.0); IMMATURE GRAN ABSOLUTE AUTO 0.01 K/mm3 (0.00-0.10); IMMATURE GRAN PERCENT AUTO 0 % (0-1); LYMPHOCYTES ABSOLUTE AUTO 1.89 K/mm3 (0.84-5.20); LYMPHOCYTES PERCENT AUTO 48 % (21-46); MONOCYTES PERCENT AUTO 5 % (4-13); Mean Corpuscular HGB 32.4 pg (26.0-34.0); Mean Corpuscular HGB Conc 32.5 g/dL (31.5-36.5); Mean Corpuscular Volume 100 fL (80-100); Mean Platelet Volume 11.1 fL (9.1-12.4); NEUTROPHILS ABSOLUTE AUTO 1.77 K/mm3 (1.96-9.15); NEUTROPHILS PERCENT AUTO 45 % (41-73); Platelet Count 127 K/mm3 (150-400); RDW Coefficient Variation 17.3 % (11.7-14.2); RDW Standard Deviation 63.2 fL (35.1-46.3); Red Blood Cell Count 2.47 M/mm3 (3.80-5.20); White Blood Cell Count 3.96 K/mm3 (4.00-11.30)
[2020-05-16 04:30] LABS: Albumin, Blood 1.8 g/dL (3.4-5.0); Albumin/Globulin Ratio 0.6 (0.8-1.8); Bilirubin, Total 0.5 mg/dL (0.1-1.0); Bun/Creatinine Ratio 9.6 (12.0-20.0); Calcium, Blood 7.9 mg/dL (8.5-10.1); Creatinine, Blood 1.56 mg/dL (0.40-1.00); Total Protein, Blood 4.8 g/dL (6.4-8.2)
--- NOTE | 2020-05-16 05:24 | NUR ---
SHIFT SUMMARY PT SLEPT T/O SHIFT. CIWA SCORE 7-14. MEDICATED PER EMAR. BP STABLE. HR STABLE. PT ALERT TO SELF, LOCATION, SITUATION. UNSURE OF DATE. BED ALARM IN PLACE FOR PT SAFETY. OXYGEN SATURATION MAINTINED ABOVE 95% ON RA. PT REPOSITIONED Q [address] D/T BOWEL INCONTINENCE. NOBLE PATENT AND TO GRAVITY DRAIN. WILL CONTINUE TO MONITOR UNTIL REPORT GIVEN TO DAYSHIJOSE EDUARDO BAIRD.
--- NOTE | 2020-05-16 10:53 | NUR ---
PT IS SLEEPING SOUNDLY. WILL WAIT TILL PATIENT IS AWAKE BEFORE ATTEMPTING NEW CIWA'S. PT APPEARS TO BE IN NO DISTRESS. WILL CONTINUE TO MONITOR.
--- NOTE | 2020-05-16 18:16 | NUR ---
PT HAS SLEPT MOST OF THE SHIFT. HER NOON CIWA WAS DONE WHILE SHE WAS SLEEPING. WHILE AWAKE PT HAD CIWA OF 8-9. ATIVAN GIVEN PER EMAR. PT WAS ABLE TO EAT DINNER WITH ASSISTANCE. BEDBATH GIVEN THIS MORING. PT HAS HAD NO HALLUCINATIONS THIS SHIFT. NOBLE MARCELINO . CALL LIGHT WITHIN REACH.
--- NOTE | 2020-05-16 21:18 | NUR ---
ASPIRATION RISK PT UNABLE TO DIRECT TO SWALLOW PO MEDICATIONS AT THIS TIME. UNABLE TO TAKE SIPS OF WATER. BLOOD GLUCOSE AT 203. 2 UNITS OF INSULIN ORDERED FOR BLOOD GLUCOSE OVER 200. D/T PT'S SENSITIVITY TO INSULIN AND HX OF HYPOGLYCEMIA AFTER INSULIN ADMINISTRATION. HOLDING INSULIN THIS NOC. ALSO, HOLDING PO MEDICATIONS D/T ASPIRATION RISK.
--- NOTE | 2020-05-16 22:42 | NUR ---
PHYSICIAN NOTIFIED PHYSICIAN NOTIFIED OF PT UNABLE TO TOLERATE PO OMNICEF THIS NOC. PHYSICIAN CONSULTING PHARMACY. PHYSICIAN NOTIFIED OF PT'S SWOLLEN/BRUISED R ANKLE. INSTURCTED TO PASS ALONG INFORMATION TO [employer] FOR DIRECTION.
--- NOTE | 2020-05-17 05:39 | NUR ---
SHIFT SUMMARY PT ALERT AND ORIENTED TO SELF AND LOCATION AT TIMES. HAVING HALLUCINATIONS T/O NIGHT. CIWA SCORE 4-13. MEDICATED PER EMAR. DEPENDS IN PLACE D/T FECAL INCONTINENCE. NOBLE PATENT AND TO GRAVITY DRAIN. HR STABLE. BP STABLE. OXYGEN SATURATION MAINTAINED ABOVE 92% ON RA. PHYSICIAN NOTIFIED OF PT'S ASPIRATION RISK AND PO MEDICATIONS SCHEDULED. PHYSICIAN NOTIFIED OF SWELLING/BRUISING IN PT'S R ANKLE. NO ORDERS AT THIS TIME. WILL PASS ONTO DAYSHIFT. REPOSITIONED Q 2 HRS. WILL CONTINUE TO MONITOR UNTIL REPORT GIVEN TO DAYSHIFT RN.
[2020-05-17 06:04] LABS: BASOPHILS ABSOLUTE AUTO 0.02 K/mm3 (0.00-0.23); BASOPHILS PERCENT AUTO 1 % (0-2); EOSINOPHILS ABSOLUTE AUTO 0.05 K/mm3 (0.00-0.68); EOSINOPHILS PERCENT AUTO 1 % (0-6); Hematocrit 25.3 % (33.0-51.0); Hemoglobin 8.2 g/dL (11.5-16.0); IMMATURE GRAN ABSOLUTE AUTO 0.01 K/mm3 (0.00-0.10); IMMATURE GRAN PERCENT AUTO 0 % (0-1); LYMPHOCYTES PERCENT AUTO 37 % (21-46); MONOCYTES ABSOLUTE AUTO 0.27 K/mm3 (0.16-1.47); MONOCYTES PERCENT AUTO 6 % (4-13); Mean Corpuscular HGB 32.8 pg (26.0-34.0); Mean Corpuscular HGB Conc 32.4 g/dL (31.5-36.5); Mean Corpuscular Volume 101 fL (80-100); Mean Platelet Volume 10.5 fL (9.1-12.4); NEUTROPHILS ABSOLUTE AUTO 2.41 K/mm3 (1.96-9.15); NEUTROPHILS PERCENT AUTO 55 % (41-73); Platelet Count 133 K/mm3 (150-400); RDW Coefficient Variation 17.5 % (11.7-14.2); RDW Standard Deviation 65.2 fL (35.1-46.3); White Blood Cell Count 4.36 K/mm3 (4.00-11.30)
[2020-05-17 06:24] LABS: Albumin, Blood 1.7 g/dL (3.4-5.0); Albumin/Globulin Ratio 0.6 (0.8-1.8); Bilirubin, Total 0.2 mg/dL (0.1-1.0); Bun/Creatinine Ratio 11.5 (12.0-20.0); Calcium, Blood 7.9 mg/dL (8.5-10.1); Creatinine, Blood 1.22 mg/dL (0.40-1.00); Potassium, Blood 3.6 mmol/L (3.5-5.5); Total Protein, Blood 4.7 g/dL (6.4-8.2)
--- NOTE | 2020-05-17 12:35 | NUR ---
pt very somulant this am, has eyes closed most of the time, wakes very briefly with name. is moving herself around the bed, repositioned her, too sleepy to give po meds, did give her a sip of water when she asked for it and there was some coughing after, will check with Dr. prior to feeding her, she doesn't really have any withdrawl symptoms as she's too sleepy, her v.s. are stable, lungs are clear, dim in bases, resp even and unlabored, no cough noted, hrr, tele in place running sr per monitor, see strip, no edema noted, but right foot is bruised and swollen, pp faint, cap refill <3sec, iv sites are clear and patent, btx4, abd flat soft nontender, voids via angela cath draining clear yellow urine, attends in place, skin has scattered bruising t/o, maty, likes to curl up, tonja, call light in reach.
--- NOTE | 2020-05-17 12:41 | NUR ---
Dr. Mcguire was in to see pt, will do a ct scan because she is so somulant, will hold food for now, will stop lovenox and place scuds, and start fluids, call light in reach. she yells out when she wants something but is consfused at what she wants.
--- NOTE | 2020-05-17 14:49 | NUR ---
pt taken down for ct scan via cart.
--- NOTE | 2020-05-17 19:20 | NUR ---
PT HAS BEEN SOMULANT THE ENTIRE SHIFT, SHE WILL WAKE, AND IS SOMEWHAT CONFUSED, PULLING ON LINES ETC, BUT DIRECTABLE, VERY LITTLE SIGNS OF WITHDRAW, NO FURTHER CHANGES THIS SHIFT, CALL LIGHT IN REACH.
--- NOTE | 2020-05-17 20:30 | NUR ---
PT UPDATE PT AWAKE, BED ALARM SOUNDED. UPON ENTERING PT ROOM, PT WAS PUSHING COVERS OFF, ATTEMPTING TO CLIMB OUT OF BED. WHEN ASKED WHERE SHE WAS GOING, PT STATED, "IM GETTING OUT OF HERE! i'M GOING HOME!" PT RESTLESS AND AGITATED. MEDICATED W/ ATIVAN PER EMAR.
--- NOTE | 2020-05-18 05:25 | NUR ---
SHIFT SUMMARY PT ALERT, ORIENTED TO SELF, SURROUNDINGS, CANNOT ADD OR USE CALL LIGHT APPROPRIATELY. PT ABLE TO SIT UP IN BED AND EAT DINNER W/ STAFF FEEDING PT AT BEGINNING OF SHIFT. SEEING THIS, PT WAS ALSO ABLE TO SWALLOW PO MEDS, ONE AT A TIME, W/ SIPS OF WATER. NO COUGHING AFTER. PT C/O OF NEUROPATHY IN FEET AND A HEADACHE. MEDICATED PER EMAR X1. PT BECAME AGITATED TOWARDS BEGINNING OF SHIFT. PULLING AT LINES, BLANKETS, SETTING OFF BED ALARM. MEDICATED W/ ATIVAN PER EMAR X1, SEE PREVIOUS NOTE. SP02>92% ON RA. TELEMETRY READS SR W/ 1ST DEGREE BLOCK, HR 70'S. PT SLEPT THE SECOND HALF OF SHIFT. Q2H REPOSITIONING, SCDS IN PLACE. NOBLE CATHETER DRAINING TO GRAVITY. CALL LIGHTIN REACH. WILL GIVE REPORT TO ONCOMING NURSE.
--- NOTE | 2020-05-18 18:51 | NUR ---
pt laying in bed wakes with voice, is a bit more awake today, and is taking some po and am able to give her her meds in applesauce, returns to sleep when left alone, lungs are clear dim in bases, on r/a, resp even and unlabored, no cough noted, hrr, tele in place running sr with 1st degree block, some swelling noted to to right foot ankle, and bruising, iv sites are clear and patent, btx4, attends in place, angela cath draining clear yellow urine, skin frail, bruising t/o, pink coccyx, maew, deconditioned, very thin, tonja, call light in reach.
--- NOTE | 2020-05-18 19:09 | NUR ---
son came in to visit, brought her a burger, which she ate some of, continues to sleep when left undisturbed, have seen no signs of withdrawls. no acute changes this shift except she woke a bit more than yesterday, and was able to take some food and po meds. call light in reach.
--- NOTE | 2020-05-18 21:33 | NUR ---
PT UPDATE PT HAS ORDERS FOR Q4H CBG. MOST RECENT CBG LAB SHOWED BLOOD GLUCOSE OF 59. ENCOURAGED PT TO DRINK JUICE AND EAT. CALL PLACED TO MD MCDONOUGH. MD MCDONOUGH W/ ORDERS TO ENCOURAGE EATING, RECHECK CBG IN 10 MIN TO SEE IF TRENDING IN RIGHT DIRECTION. MD MCDONOUGH ALSO WITH ORDERS TO CHANGE PT FROM MEDIUM SLIDING SCALE TO LOW SLIDING SCALE TID.
[2020-05-19 04:11] LABS: BASOPHILS ABSOLUTE AUTO 0.01 K/mm3 (0.00-0.23); BASOPHILS PERCENT AUTO 0 % (0-2); EOSINOPHILS ABSOLUTE AUTO 0.08 K/mm3 (0.00-0.68); EOSINOPHILS PERCENT AUTO 3 % (0-6); Hematocrit 25.5 % (33.0-51.0); Hemoglobin 8.1 g/dL (11.5-16.0); IMMATURE GRAN ABSOLUTE AUTO 0.01 K/mm3 (0.00-0.10); IMMATURE GRAN PERCENT AUTO 0 % (0-1); LYMPHOCYTES ABSOLUTE AUTO 1.61 K/mm3 (0.84-5.20); LYMPHOCYTES PERCENT AUTO 57 % (21-46); MONOCYTES ABSOLUTE AUTO 0.22 K/mm3 (0.16-1.47); MONOCYTES PERCENT AUTO 8 % (4-13); Mean Corpuscular HGB 32.3 pg (26.0-34.0); Mean Corpuscular HGB Conc 31.8 g/dL (31.5-36.5); Mean Corpuscular Volume 102 fL (80-100); Mean Platelet Volume 10.5 fL (9.1-12.4); NEUTROPHILS ABSOLUTE AUTO 0.92 K/mm3 (1.96-9.15); NEUTROPHILS PERCENT AUTO 32 % (41-73); Platelet Count 151 K/mm3 (150-400); RDW Coefficient Variation 17.5 % (11.7-14.2); RDW Standard Deviation 65.9 fL (35.1-46.3); Red Blood Cell Count 2.51 M/mm3 (3.80-5.20); White Blood Cell Count 2.85 K/mm3 (4.00-11.30)
[2020-05-19 04:30] LABS: Alanine Aminotransfer (ALT/SGP 47 U/L (12-78); Albumin, Blood 1.6 g/dL (3.4-5.0); Albumin/Globulin Ratio 0.5 (0.8-1.8); Alk Phos 819 U/L (50-136); Anion Gap 4 mmol/L (6-16); Aspartate Aminotrans (AST/SGOT 116 U/L (12-37); Bilirubin, Total 0.2 mg/dL (0.1-1.0); Blood Urea Nitrogen 11 mg/dL (8-24); Bun/Creatinine Ratio 11.4 (12.0-20.0); CO2, Blood 19 mmol/L (21-32); Calcium, Blood 8.1 mg/dL (8.5-10.1); Chloride, Blood 123 mmol/L (98-108); Creatinine, Blood 0.96 mg/dL (0.40-1.00); Globulin, Blood 3.1 g/dL (2.2-4.0); Glomerular Filtration Rate >60 (60-); Glucose, Blood 132 mg/dL (70-99); Potassium, Blood 4.3 mmol/L (3.5-5.5); Sodium, Blood 146 mmol/L (136-145); Total Protein, Blood 4.7 g/dL (6.4-8.2)
--- NOTE | 2020-05-19 06:03 | NUR ---
SHIFT SUMMARY PT ALERT, ORIENTED TO SELF, SITUATION, AND FOLLOWING DIRECTIONS. DOES NOT USE CALL LIGHT BUT CALLS OUT FOR NURSE TO MAKE NEEDS KNOWN. SP02>92% ON RA. TELEMETRY READS SR W/ 1ST DEGREE BLOCK, HR 80'S. PT HAD EPISODE OF HYPOGLYCEMIA THIS SHIFT, SEE PREVIOUS NOTE. BLOOD SUGARS NO LONGER LOW NOW. PT C/O OF MILD HEADACHE. PT REPOSITIONED HERSELF IN BED. PT WAS HUNGRY MULTIPLE TIMES T/O NIGHT, WAS ABLE TO EAT SANDWICHES, JELLO, ETC. FLUIDS INFUSED PER EMAR. NOBLE CATHETER DRAINING TO GRAVITY. C/D ATTENDS IN PLACE. CALL LIGHT IN REACH. WILL GIVE REPORT TO ONCOMING SHIFT.
--- NOTE | 2020-05-19 10:07 | NUR ---
TRANSFER: PT IS ALERT AND ORIENTED X3. AT TIMES CONFUSED, ASKING REPETATIVE QUESTIONS. ABLE TO STATE NAME AND BIRTHDATE AND WHERE SHE WAS. ON ROOM AIR SATING ABOVE 92%. TELE SHOWING SINUS RHYTHM WITH HR 70-80'S. COMPLAINS OF MILD HEADACHE, SEE EMAR FOR TYLENOL ADMINISTRATION. TAKING PILLS WITH APPLESAUCE. NOBLE CATH DRAINING CLEAR, YELLOW URINE TO GRAVITY. DENIES CHEST PAIN/PRESSURE. TRANSFERED MEDICAL FLOOR VIA BED.
--- NOTE | 2020-05-19 10:20 | NUR ---
PT ARRIVED TO THE MEDICAL FLOOR FROM THE PCU, A/O MOSTLY NON-VERBAL, PT WAS ORIENTED TO THE CALL SYSTEM, SCD'S APPLIED PT APPEARS TO BE BREATHING EASILY ON RA, CALL LIGHT IN REACH WILL CONTINUE TO MONITOR AND ASSESS FOR CHANGES
--- NOTE | 2020-05-19 19:22 | NUR ---
PT IS A/OX3, PLEASANT AND COOPERATIVE, SLOW TO RESPOND, SOMULANT, PT IS VERY WEAK AND UNSTEADY ON HER FEET, 2 PERSON ASSIST UP, THE PTS CWAW SCORE AT 8 THIS AFTERNOON PER THIS COST CONSULTANT, ATIVAN WAS GIVEN WELL TYLENOL, PTS SON WAS AT THE BEDSIDE THIS AFTERNOON, THE PT APPEARS TO BE BREATHING EASILY ON RA AT THIS TIME, CALL LIGHT IN REACH, WILL CONTINUE TO MONITOR AND ASSESS FOR CHANGES
--- NOTE | 2020-05-20 04:21 | NUR ---
SHIFT SUMMARY PT HAS BEEN RESTELESS FOR A GOOD PORITION OF THE SHIFT, SHE HAS BEEN AWAKE OFF AND ON, ANXIOUS AND UNABLE TO REST. PT IS A/OX2-3, BUT CAN BE FORGETFUL. SLOW TO RESPOND AND ANSWER QUESTIONS, SPEECH AT TIMES NONSENSICAL. CIWA WAS DC'D BY DR. JOHNSON. ATIVAN GIVEN ORDERED FOR ANXIETY. PT STARTED ON LACTULOSE YESTERDAY. PT HAS HAD 4 BM'S THIS SHIFT. LACTULOSE HELD AT BEDTIME A RESULT. VITALS ARE STABLE. NOBLE IN PLACE PATENT AND DRAINING. BED IN LOWEST POSITION. CALL LIGHT WITHIN REACH.
[2020-05-20 05:52] LABS: Albumin, Blood 1.9 g/dL (3.4-5.0); Albumin/Globulin Ratio 0.5 (0.8-1.8); Bilirubin, Total 0.3 mg/dL (0.1-1.0); Bun/Creatinine Ratio 11.4 (12.0-20.0); Calcium, Blood 8.2 mg/dL (8.5-10.1); Creatinine, Blood 1.05 mg/dL (0.40-1.00); Globulin, Blood 3.7 g/dL (2.2-4.0); Magnesium, Blood 1.6 mg/dL (1.6-2.4); Phosphorus, Blood 3.2 mg/dL (2.5-4.9); Potassium, Blood 5.4 mmol/L (3.5-5.5); Total Protein, Blood 5.6 g/dL (6.4-8.2)
[2020-05-20 07:15] LABS: BASOPHILS ABSOLUTE AUTO 0.02 K/mm3 (0.00-0.23); BASOPHILS PERCENT AUTO 1 % (0-2); EOSINOPHILS ABSOLUTE AUTO 0.09 K/mm3 (0.00-0.68); EOSINOPHILS PERCENT AUTO 2 % (0-6); Hematocrit 28.2 % (33.0-51.0); IMMATURE GRAN ABSOLUTE AUTO 0.02 K/mm3 (0.00-0.10); IMMATURE GRAN PERCENT AUTO 1 % (0-1); LYMPHOCYTES ABSOLUTE AUTO 1.38 K/mm3 (0.84-5.20); LYMPHOCYTES PERCENT AUTO 37 % (21-46); MONOCYTES ABSOLUTE AUTO 0.28 K/mm3 (0.16-1.47); MONOCYTES PERCENT AUTO 8 % (4-13); Mean Corpuscular HGB 32.8 pg (26.0-34.0); Mean Corpuscular HGB Conc 31.9 g/dL (31.5-36.5); Mean Corpuscular Volume 103 fL (80-100); Mean Platelet Volume 11.1 fL (9.1-12.4); NEUTROPHILS ABSOLUTE AUTO 1.91 K/mm3 (1.96-9.15); NEUTROPHILS PERCENT AUTO 52 % (41-73); Platelet Count 159 K/mm3 (150-400); RDW Coefficient Variation 17.8 % (11.7-14.2); RDW Standard Deviation 66.3 fL (35.1-46.3); Red Blood Cell Count 2.74 M/mm3 (3.80-5.20)
--- NOTE | 2020-05-20 17:45 | NUR ---
05/20/[address] PT [address]f. Per Dr Pinto, talk to patient, if agreeable to snf, have review completed. Tried to meet with Jean today, sleeping heavily, unable to wake her with my voice. cp
--- NOTE | 2020-05-20 20:26 | NUR ---
SHIFT SUMMARY PT SLEEPING AT START OF SHIFT. PT WOKE FOR CARE. DROWSY AT START OF SHIFT. VERY WEAK AND DECONDITIONED. P/T HERE EARLY TO WORK WITH PT. PT WANTING BED OLIVO, BUT ASSISTED TO BSC FOR BM. PT STARTED 2P ASSIST WITH FWW AND GB. EACH TIME PT GOT UP TO BSC SHE DID A LITTLE BETTER AND REQUIRED A LITTLE LESS ASSISTANCE FROM STAFF. PT WAS 1P ASSIST USING FWW TO BSC BY END OF DAY. PT'S FAMILY HERE TODAY, BRINGING PT FOOD AND VISITING FOR A WHILE. PT'S CBG'S IN UPPER 200'S ALL DAY, WITH PT EATING WELL EVERY MEAL. HOWEVER, BEFORE DINNER CBG DROPPED FOR SOME REASON; SEE CHART. PT EATING WELL FOR DINNER TONIGHT AGAIN THOUGH AND REPORT GIVEN TO ONCOMING RN. NOC SHIFT RN REPORTED SEEING PT WITH HOME MEDICATIONS AFTER SHIFT, POSSIBLY FROM FAMILY. MEDS TAKEN TO PHARMACY FOR SAFETY. PT HAS BEEN UP TO BSC FOR MULTIPLE BM'S ALL LAST NIGHT AND ALL DAY TODAY WELL. NOBLE TO GRAVITY; PATENT AND DRAINING CL YELLOW URINE. NO C/O PAIN. PT DENIED NEEDS. DR RUBIO IN TO SEE PT THIS AM. NO NEW ORDERS AT THAT TIME. BED ALARM ON FOR SAFETY. CALL LT IN REACH.
--- NOTE | 2020-05-21 05:26 | NUR ---
EARTH BORING MACHINE OPERATOR SUMMARY AT START OF SHIFT WENT INTO PT'S ROOM TO ASSIST PT TO THE BSC. THIS RN NOTICED PT'S PURSE SITTING ON HER BED WITH MULTIPLE PRESCRIPTION MEDICATION BOTTLES SITTING ON TOP. MEDICATIONS INCLUDED METOPROLOL, GABAPENTIN, PANCREASE, AMONGST OTHERS. PT STATED SHE HAD TAKEN HER PANCREASE AND GABAPENTIN "A FEW HOURS AGO". INFORMED PT NOT TO TAKE HOME MEDS UNLESS ORDERED BY DOCTOR HERE AT THE HOSPITAL. TOOK MEDS TO PHARMACY TO BE INVENTORIED AND LOCKED IN SAFE, MED RECEIPT IN FRONT OF PT'S CHART. PT AAOX3. STILL VERY WEAK AND SLOW TO RESPOND BUT DOES RESPOND APPROPRIATELY. CONTINUED ON LACTULOSE TONIGHT AND PT HAS HAD SEVERAL LARGE SOFT BM'S. VSS, WILL CONTINUE TO MONITOR.
--- NOTE | 2020-05-21 13:55 | NUR ---
ADMIT: 05/13/20 DISCHARGE: DX: mega CC: cpeabody NEELIMA CALL: RESIDENCE: home, lives with Sister Juanito CAREGIVER: Emergency contact: DAVID CRAIG ([place]) Ej, Sister DX: chronic pancreatitis, htn, reflux , DM1, substance abuse, DME: pullups, cane, dm supplies CCM: no record HOME HEALTH: no record SUMMARY: Admit 05/13/20 05/21/20 Met with Jena, agreeable to go to snf. Lives at home with her Sister Ej, who is her caregiver. Also has another Sister David that is able to help with care. Plans to return home with her sisters after rehab is complete. [facility] information provided Alcohol treatment. Ciwa score for 05/21/20 2 Requesting review for snf placement with [facility] Management. Family to discuss today if local snf not available, are they agreeable to out of town or discharge home with Home health. Should have answer today.
--- NOTE | 2020-05-21 17:11 | NUR ---
16:00 - Jena was turned down for all [place] facilities for SNF rehab. Medical records note patient is taking home medications with out physician permission ( keeping in bedside drawer) Care management will look in the [place] area for snf availability. cp
--- NOTE | 2020-05-21 18:45 | NUR ---
SHIFT SUMMARY PT CONTINUES TO IMPROVE TODAY, BECOMING MORE MOBILE. PT UP TO BSC WITH 1P ASSIST NOW. PT UP TO SHOWER TODAY. ABLE TO WORK WITH PT/OT. ABLE TO GET HER OWN PULL UPS ON AND NONSKID SOCKS. VERY WEAK AND SLOW, BUT MUCH IMPROVED. NOBLE D/C'D TODAY. PT CONTINENT AND UP TO BSC, VOIDING WELL. PT HAS HAD MULTIPLE BM'S D/T LACTULOSE, BUT HAS BEEN CONTINENT. C/O CASTANEDA; MEDICATED WITH TYLENOL. CALL LT IN REACH. ABLE TO MAKE NEEDS KNOWN.
--- NOTE | 2020-05-21 22:49 | NUR ---
CBG NOTIFIED GHASSAN Main OF CBG BEING 340 & PT HAVING NO HS COVERAGE, SHE STATED TO GIVE SS HUMALOG PER ORDERS. PT RECIEVED 6U HUMALOG. WILL MONITOR PT.
--- NOTE | 2020-05-22 06:19 | NUR ---
I found pt sitting on the floor next to the bsc, with her walker in front of her and a pop spilled on the floor next to her. PT stated she used the bsc, and wanted to get a clean brief on so she tried to go get one. She states she fell and hit her crotch on the walker, and fell on her bottom. I notified the RN immediately. RN came, we assessed and looked pt over for any injuries, but found none. Pt has been asked to call when gettin up, but now we have put the bed alarm on. We changed pt's gown which was little we from pop splatter on the floor (for her safety she is wearing the yellow flannel one, the yellow cotton one is more of a fall risk as it is much too big), pt is also wearing yellow non slip socks, and was again instructed to call if she needed anything.
--- NOTE | 2020-05-22 07:56 | NUR ---
SHIFT SUMMARY AOX3-UNAWARE DATE, HOWEVER ANSWER REST OF ORIENTATION QUESTIONS CORRECTLY. SLOW TO RESPOND. ANXIOUS @BEGINNING OF SHIFT & TEARFUL, MEDICATED 1X c ATIVAN PER ORDERS. PT REPORTED PAIN IN BLE FROM CHRONIC NEUROPATHY, MEDICATED 1X c GABAPENTIN PER ORDERS & PT STATED RELIEF. DENIES N/V OR DYSPNEA. CBG ELEVATED @HS, READ PREVIOUS NOTE. PT ASKS FOR SNACKS CONTINUOUSLY, HOWEVER TO KEEP CBG LOWER I ENCOURAGED LOW CARB SNACKS. HELD HS LACTALOSE FOR PT HAD 10BM CHARTED YESTERDAY. PT USING CALL LIGHT MOST OF NIGHT FOR NEEDS. HOWEVER AT 0445 PT WAS FOUND ON FLOOR BY HOME PERFORMANCE LABORER. PT REPORTED SHE WAS ATTEMPTING TO GET A NEW ATTENDS FROM [facility]. ASSESSED PT WHILE SITTING ON FLOOR-NO NEW BRUSING, OPEN SORES, REDNESS OR SWELLING NOTED. PT REPORTED HER "CROTCH" WAS HURTING FROM FALLING ON FWW, HOWEVER NO REDNESS OR BLEEDING NOTED WHEN ASSESSED & FWW WAS IN FRONT OF PT & NOT FOUND LYING. ASSISTED PT TO BED, CHANGED CLOTHING SINCE SHE SPILT HER DRINK ALL OVER HERSELF & MEDICATED c TYLENOL FOR NEW "CROTCH" DISCOMFORT. PT RESTING COMFORTABLY SINCE. DISCUSSED THE IMPORTANCE OF USING A CALL LIGHT. PLACED YELLOW SOCKS FOR FALL RISK ON & BED ALARM IN PLACE.
--- NOTE | 2020-05-22 18:07 | NUR ---
PT IS A/OX3, PLEASANT AND COOPERATIVE, THE PT IS UP WITH MINIMAL ASSIST, THE PT HAS USED THE CALL LIGHT APPROPRIATLY T/O THE SHIFT, THE PT APPEARS TO BE BREATHING EASILY AT THIS TIME ON RA, THE PT WAS MEDICATED FOR PAIN IN HER GROIN AREA ANR RIGHT ANKLE, THERE IS SWELLING AT THE RIGHT ANKLE, PT WORKED WITH THE PHYSICAL THERAPIST TODAY, PT WAS MEDICATED FOR ANXIETY AND WAS ABLE TO SLEEP THIS AFTERNOON FOR A LIITLE WHILE, THE PTS SON IS AT THE BEDSIDE AT THIS TIME, WILL CONTINUE TO MONITOR AND ASSESS FOR CHANGES
--- NOTE | 2020-05-22 18:49 | NUR ---
05/22/20 [facility] clinical services manager assigned is Christin to find snf placement. Met with Christin to discuss possible placement in [place] area. She has not received any approvals at this time. PT recommendation for today remains fpc. Stopped by Jena klein today to let her know we are still looking for a snf. Will continue to follow for discharge planning. nishant
--- NOTE | 2020-05-23 06:00 | NUR ---
SHIFT SUMMARY- PT. A&OX3, CALLED APPROPRIATELY DURING THE NIGHT, HOWEVER WAS IMPULSIVE EARLY THIS AM. ATTEMPTED TO GET OOB W/O ASSISTANCE, BED ALARM WENT OFF. THIS NURSE ASSISTED PT. TO BSC, PT. VERY WEAK AND UNABLE TO USE BSC W/O ASSISTANCE. PT. ASSISTED BACK INTO BED, PUT NON-SKID YELLOW SOCKS BACK ON, PT. TAKES THEM OFF WHILE IN BED. PT. REQUESTING SNACKS CONTINOUSLY T/O THE SHIFT. EDUCATED PT. ON HAVING SNACKS THAT ARE LOW IN CARBS, PT. DIABETIC AND BS IN THE 200'S LAST NIGHT. PT. ALSO TEARFUL AND ANXIOUS. MEDICATED WITH ATIVAN PER EMAR, APPEARED TO HAVE GOOD EFFECT. PT. RESTING QUIETLY, NO APPARENT DISTRESS NOTED. VSS. CALL LIGHT WITHIN REACH, SIDE RAILS UPX2, AND BED ALARM ON. WILL CONT TO MONITOR.
--- NOTE | 2020-05-23 16:41 | NUR ---
PT IS A/OX3, PLEASANT AND COOPERATIVE, THE PT IS UP WITH MINIMAL ASSIST TO THE CHAIR AND TO THE BATHROOM, DURING THE DAY THE PT USES THE CALL SYSTEM APPROPRIATLY, PT MHAS HAD SEVERAL SOFT BM'S THIS AM, THE PT APPEARS TO BE BREATHING EASILY ON RA AT THIS TIME, PT WAS MEDICATED FOR ANXIETY THIS AM PER HER REQUEST, PT S SON IS AT THE BEDSIDE AT THIS TIME, CALL LIGHT IN REACH, WILL CONTINUE TO MONITOR AND ASSESS FOR CHANGES
--- NOTE | 2020-05-23 17:25 | NUR ---
05/23/20 Physical Therapy still recommends snf, but Jena is getting closer to a home health recommendation if she has multimedia authoring specialist care at home. [facility] management working on finding a snf in [place] area. Denied by Shyla. cp
[2020-05-24 05:40] LABS: Bun/Creatinine Ratio 15.3 (12.0-20.0); Calcium, Blood 8.3 mg/dL (8.5-10.1); Creatinine, Blood 1.5 mg/dL (0.40-1.00)
[2020-05-24 05:42] LABS: Potassium, Blood 6.1 mmol/L (3.5-5.5)
--- NOTE | 2020-05-24 06:39 | NUR ---
SHIFT SUMMARY- PT. ANXIOUS AND AWAKE MOST OF THE NIGHT. MEDICATED PER EMAR WITH MINIMAL EFFECT. PT. HAS GENERALIZED WEAKNESS, NEEDS ASSISTANCE TO BSC. HAVING LOOSE STOOLS, HELD LACTULOSE. CRITICAL K LEVEL OF 6.[address] MCDONOUGH, NEW ORDERS IN PLACE. PT. ALSO PLACED ON TELE WITH SR AT 88. VSS. CALL LIGHT WITHIN REACH, SIDE RAILS UPX2, AND BED ALARM ON. WILL CONT TO MONITOR.
[2020-05-24 09:06] LABS: Bun/Creatinine Ratio 17.3 (12.0-20.0); Calcium, Blood 8.7 mg/dL (8.5-10.1); Creatinine, Blood 1.33 mg/dL (0.40-1.00); Potassium, Blood 4.9 mmol/L (3.5-5.5)
[2020-05-24 17:17] LABS: BASOPHILS ABSOLUTE AUTO 0.04 K/mm3 (0.00-0.23); BASOPHILS PERCENT AUTO 1 % (0-2); EOSINOPHILS ABSOLUTE AUTO 0.07 K/mm3 (0.00-0.68); EOSINOPHILS PERCENT AUTO 2 % (0-6); Hematocrit 22.8 % (33.0-51.0); Hemoglobin 7.3 g/dL (11.5-16.0); IMMATURE GRAN ABSOLUTE AUTO 0.03 K/mm3 (0.00-0.10); IMMATURE GRAN PERCENT AUTO 1 % (0-1); LYMPHOCYTES ABSOLUTE AUTO 2.26 K/mm3 (0.84-5.20); LYMPHOCYTES PERCENT AUTO 49 % (21-46); MONOCYTES ABSOLUTE AUTO 0.55 K/mm3 (0.16-1.47); MONOCYTES PERCENT AUTO 12 % (4-13); Mean Corpuscular HGB 32.4 pg (26.0-34.0); Mean Corpuscular Volume 101 fL (80-100); Mean Platelet Volume 10.3 fL (9.1-12.4); NEUTROPHILS PERCENT AUTO 37 % (41-73); Platelet Count 230 K/mm3 (150-400); RDW Coefficient Variation 17.4 % (11.7-14.2); Red Blood Cell Count 2.25 M/mm3 (3.80-5.20); White Blood Cell Count 4.65 K/mm3 (4.00-11.30)
--- NOTE | 2020-05-24 19:14 | NUR ---
a+o, gets up without calling but bed alarm is on, call light in reach, saline locked, rm air, bed in low position, asked for anxity medication, bsr shared with pt and noc nurse
[2020-05-25 05:02] LABS: Bun/Creatinine Ratio 14.7 (12.0-20.0); Calcium, Blood 8.1 mg/dL (8.5-10.1); Creatinine, Blood 1.29 mg/dL (0.40-1.00); Potassium, Blood 5.6 mmol/L (3.5-5.5)
--- NOTE | 2020-05-25 05:54 | NUR ---
SHIFT SUMMARY PATIENT ALERT AND ORIENTED. HAD NO COMPLAINTS OF PAIN OR SHORTNESS OF BREATH. MEDICATED NEEDED PER EMAR FOR ANXIETY. PATIENT UP MOST OF THE NIGHT WITH FREQUENCY. POST VOID BLADDER SCAN PERFORMED TO SEE IF PATIENT WAS RETAINING URINE, SHE WAS NOT. IV PATENT AND FLUSHED. BED IN LOWEST POSITION WITH WHEELS LOCKED AND ALARM ON. CALL LIGHT WITHIN REACH. REPORT GIVEN TO ONCOMING RN.
[2020-05-25 17:03] LABS: BASOPHILS ABSOLUTE AUTO 0.05 K/mm3 (0.00-0.23); BASOPHILS PERCENT AUTO 1 % (0-2); EOSINOPHILS ABSOLUTE AUTO 0.11 K/mm3 (0.00-0.68); EOSINOPHILS PERCENT AUTO 2 % (0-6); Hematocrit 27.8 % (33.0-51.0); Hemoglobin 8.8 g/dL (11.5-16.0); IMMATURE GRAN ABSOLUTE AUTO 0.06 K/mm3 (0.00-0.10); IMMATURE GRAN PERCENT AUTO 1 % (0-1); LYMPHOCYTES ABSOLUTE AUTO 2.39 K/mm3 (0.84-5.20); LYMPHOCYTES PERCENT AUTO 48 % (21-46); MONOCYTES ABSOLUTE AUTO 0.58 K/mm3 (0.16-1.47); MONOCYTES PERCENT AUTO 12 % (4-13); Mean Corpuscular HGB 32.6 pg (26.0-34.0); Mean Corpuscular HGB Conc 31.7 g/dL (31.5-36.5); Mean Corpuscular Volume 103 fL (80-100); Mean Platelet Volume 10.5 fL (9.1-12.4); NEUTROPHILS ABSOLUTE AUTO 1.75 K/mm3 (1.96-9.15); NEUTROPHILS PERCENT AUTO 36 % (41-73); Platelet Count 271 K/mm3 (150-400); RDW Coefficient Variation 17.7 % (11.7-14.2); RDW Standard Deviation 66.8 fL (35.1-46.3); White Blood Cell Count 4.94 K/mm3 (4.00-11.30)
--- NOTE | 2020-05-25 19:31 | NUR ---
a+o, bsr shared with noc nurse and pt, call light in reach, rm air, saline locked, no further blood sugar events since the low of 11 have been checking sugar level frequently, recommende noc shift continue to do so
[2020-05-26 04:28] LABS: BASOPHILS ABSOLUTE AUTO 0.03 K/mm3 (0.00-0.23); BASOPHILS PERCENT AUTO 1 % (0-2); EOSINOPHILS ABSOLUTE AUTO 0.09 K/mm3 (0.00-0.68); EOSINOPHILS PERCENT AUTO 2 % (0-6); Hematocrit 22.5 % (33.0-51.0); Hemoglobin 7.3 g/dL (11.5-16.0); IMMATURE GRAN ABSOLUTE AUTO 0.04 K/mm3 (0.00-0.10); IMMATURE GRAN PERCENT AUTO 1 % (0-1); LYMPHOCYTES ABSOLUTE AUTO 2.62 K/mm3 (0.84-5.20); LYMPHOCYTES PERCENT AUTO 49 % (21-46); MONOCYTES ABSOLUTE AUTO 0.46 K/mm3 (0.16-1.47); MONOCYTES PERCENT AUTO 9 % (4-13); Mean Corpuscular HGB 32.4 pg (26.0-34.0); Mean Corpuscular HGB Conc 32.4 g/dL (31.5-36.5); Mean Corpuscular Volume 100 fL (80-100); Mean Platelet Volume 10.8 fL (9.1-12.4); NEUTROPHILS ABSOLUTE AUTO 2.13 K/mm3 (1.96-9.15); NEUTROPHILS PERCENT AUTO 40 % (41-73); Platelet Count 264 K/mm3 (150-400); RDW Coefficient Variation 17.2 % (11.7-14.2); RDW Standard Deviation 63.4 fL (35.1-46.3); Red Blood Cell Count 2.25 M/mm3 (3.80-5.20); White Blood Cell Count 5.37 K/mm3 (4.00-11.30)
[2020-05-26 04:42] LABS: Creatinine, Blood 1.28 mg/dL (0.40-1.00); Potassium, Blood 4.2 mmol/L (3.5-5.5)
--- NOTE | 2020-05-26 06:40 | NUR ---
SHIFT SUMMARY PATIENT ALERT AND ORIENTED. HAD NO COMPLAINTS OF PAIN OR SHORTNESS OF BREATH. WAS MEDICATED ONCE PER EMAR FOR ANXIETY. PATIENT SLEPT ON AN OFF. WAS VERY WITHDRAWN OVERNIGHT. IV PATENT AND FLUSHED. BED IN LOWEST POSITION WITH WHEELS LOCKED. CALL LIGHT WITHIN REACH. REPORT GIVEN TO ONCOMING RN.
--- NOTE | 2020-05-26 19:22 | NUR ---
at baseline, no drop or spike in blood sugar, frusterated with restrictions placed on her to keep her safe, call light in reach, rm air saline locked, bsr shared with pt and noc nurse
--- NOTE | 2020-05-27 06:22 | NUR ---
SHIFT SUMMARY PATIENT ALERT AND ORIENTED. WAS MEDICATED PER EMAR FOR ANXIETY. PATIENT WAS NEEDY OVERNIGHT AND PRESSED HER CALL LIGHT AN OVERABUNDANT AMOUNT. SHE WAS RECORDED TO BE HYPERGLYCEMIC AT THE BEDINNING OF SHIFT AND WAS EDUCATED ON THE IMPORTANCE OF REGULATING HER SNACK INTAKE ACCORDING TO WHAT HER BLOOD SUGAR WAS. AT FIRST SHE WAS COOPORATIVE, BUT EVENTUALLY GOT FRUSTRATED WITH THE AMOUNT OF SNACKS BEING ALLOWED TO HER THAT SHE STATED THAT SHE WAS TRYING TO MAKER HER BLOOD SUGAR SKYROCKET. IV PATENT AND FLUSHED. BED IN LOWEST POSITION WITH WHEELS LOCKED AND ALARM ON. CALL LIGHT WITHIN REACH. REPORT GIVEN TO ONCOMING RN.
--- NOTE | 2020-05-27 15:12 | NUR ---
05/27/20 s/w Sisters Ej and Agustina by telephone today. PT has changed recommendation to home health. Dr Mullins plans for discharge tommorrow. Needs a 4 wheel walker with seat and brakes. Home health recommended. Tried to meet with Jena today, she was getting a transfusion. Will meet with Jena to discuss preferences for Home health and 4 wheel walker. cp
--- NOTE | 2020-05-27 17:30 | NUR ---
SHIFT SUMMARY PATIENT ALERT AND ORIENTED THIS SHIFT. PATIENT RECEIVED 1 UNIT OF PRBCs THIS SHIFT, PATIENT TOLERATED TRANFUSION WELL. PATIENT UP INDEPENDENTLY TO THE BEDSIDE COMODE THIS SHIFT. PATIENT'S SON IN THE ROOM TO VISIT THIS AFTERNOON. PATIENT'S BLOOD GLUCOSE 436 THIS AM. INSULIN ADMINISTERED PER DR ALICIA NOTIFIED, NO FURTHER ORDERS AT THIS TIME. BLOOD GLUCOSE IN LOW 100'S THE REST OF THIS SHIFT. PATIENT CURRENTLY SITTING UP IN BED WATCHING TELEVISION, VISITING SON.
[2020-05-28 04:41] LABS: BASOPHILS ABSOLUTE AUTO 0.05 K/mm3 (0.00-0.23); BASOPHILS PERCENT AUTO 1 % (0-2); EOSINOPHILS ABSOLUTE AUTO 0.11 K/mm3 (0.00-0.68); EOSINOPHILS PERCENT AUTO 2 % (0-6); Hematocrit 32.4 % (33.0-51.0); Hemoglobin 10.4 g/dL (11.5-16.0); IMMATURE GRAN ABSOLUTE AUTO 0.03 K/mm3 (0.00-0.10); IMMATURE GRAN PERCENT AUTO 1 % (0-1); LYMPHOCYTES ABSOLUTE AUTO 2.56 K/mm3 (0.84-5.20); LYMPHOCYTES PERCENT AUTO 43 % (21-46); MONOCYTES PERCENT AUTO 8 % (4-13); Mean Corpuscular HGB 31.8 pg (26.0-34.0); Mean Corpuscular HGB Conc 32.1 g/dL (31.5-36.5); Mean Corpuscular Volume 99 fL (80-100); Mean Platelet Volume 10.1 fL (9.1-12.4); NEUTROPHILS ABSOLUTE AUTO 2.71 K/mm3 (1.96-9.15); NEUTROPHILS PERCENT AUTO 46 % (41-73); Platelet Count 325 K/mm3 (150-400); RDW Coefficient Variation 17.3 % (11.7-14.2); RDW Standard Deviation 62.6 fL (35.1-46.3); Red Blood Cell Count 3.27 M/mm3 (3.80-5.20); White Blood Cell Count 5.96 K/mm3 (4.00-11.30)
[2020-05-28 04:53] LABS: International Normalized Ratio 0.91; Prothrombin Time Results 9.8 Sec (9.7-11.5)
[2020-05-28 05:05] LABS: Albumin, Blood 2.5 g/dL (3.4-5.0); Albumin/Globulin Ratio 0.6 (0.8-1.8); Bilirubin, Total 0.4 mg/dL (0.1-1.0); Bun/Creatinine Ratio 21.4 (12.0-20.0); Calcium, Blood 8.6 mg/dL (8.5-10.1); Creatinine, Blood 1.12 mg/dL (0.40-1.00); Globulin, Blood 4.4 g/dL (2.2-4.0); Potassium, Blood 4.7 mmol/L (3.5-5.5); Total Protein, Blood 6.9 g/dL (6.4-8.2)
--- NOTE | 2020-05-28 06:50 | NUR ---
05/28/20 0615 PT AWAKE ON AND OFF. STATES SHE NORMALLY HAS TROUBLE SLEEPING AT NIGHT. MEDICATED FOR ANXIETY TWICE THIS SHIFT. VITALS AND HEART MONITOR STABLE. PT REFUSED LACTULOSE AND HAD ONE STOOL THIS SHIFT. PT ENJOYS HAVING NUMEROUS SNACKS LIKE SANDWICHES AND CHEESE DURING THE NIGHT.
--- NOTE | 2020-05-28 17:53 | NUR ---
ADMIT: 05/13/20 DISCHARGE: DX: sepisi CC: cpeabody NEELIMA CALL: Call Jena or Juanito at home for neelima RESIDENCE: home, lives with Sister Juanito CAREGIVER: Juanito [phone] Emergency contact: DAVID RAFA ([place]) DX: chronic pancreatitis, htn, reflux , DM1, substance abuse, DME: pullups, cane, dm supplies, 4 wheel walker ordered from [facility] 05/29/20. CCM: no record HOME HEALTH: Patient chose [facility] for PT OT Bath aide. Will contact S[facility] to order 05/29 SUMMARY: Admit 05/13/20 05/28/20 Blood sugar issues today. Hope to discharge home on per Dr Mullins. Ag[facility] to [facility] health with [facility] Batha[facility]. Order 4ww from [facility].
--- NOTE | 2020-05-28 18:16 | NUR ---
SHIFT SUMMARY PATIENT ALERT AND ORIENTED THIS SHIFT. PATIENT WALKED IN THE MATTHEWS WITH FWW MULTIPLE TIMES THIS SHIFT. BLOOD GLUCOSE 37 AT LUNCH. ORANGE JUICE PROVIDED FOR PATIENT. NOTIFIED. LONG ACTING INSULIN ADJUSTED. RECHECKED AFTER 1 HOUR, BLOOD GLUCOSE 91. PATIENT WORKED WITH PT/OT THIS SHIFT. PATIENT MEDICATED 2X FOR AGITATION PER EMAR THIS SHIFT. PATIENT'S SON IN THE ROOM VISITING THIS AFTERNOON. PATIENT CURRENTLY SITTING UP IN BED EATING DINNER.
--- NOTE | 2020-05-28 22:26 | NUR ---
PATIENT TEARFUL. REFUSING LACTULOSE AND OFFER OF PAIN MEDICATION FOR HER SORE RIGHT ANKLE. FRUSTRATED BECAUSE SHE FEELS SHE IS NOT GOING TO GET BETTER, WE SPOKE ABOUT THE IMPORTANCE FOR MONITORING HER GLUCOSE AND TAKING CARE OF HER CIRRHOSIS. WARM BLANKETS WERE ALL SHE WOULD TAKE THAT COULD BE OFFERED.
--- NOTE | 2020-05-29 00:14 | NUR ---
Patient given IV ativan for her anxiety and tearfulness with no visible results. Will call hospitalist to request something in addition to the ativan.
[2020-05-29 13:27] LABS: C DIFFICILE DNA POSITIVE (Negative)
--- NOTE | 2020-05-29 19:35 | NUR ---
SHIFT SUMMARY- PT ALERT AND ORIENTED INDEPENDENT IN THE ROOM. PT IN ISOLATION FOR C-DIFF. POSSITIVE STOOL TODAY. PLAN IS FOR THE PT TO DC HOME TOMORROW, DR WANTED TO KEEP HER FOR THE FIRST DAY OF C-DIFF TREATMENT. PT ANXIETY SEEMED TO BE WELL MANAGED TODAY WITH THE PO LIBRIUM. PASSED ALL ON TO NIGHT RN IN BEDSIDE REPORT. NO S&S OF DISTRESS NOTED AT SHIFT CHANGE.
--- NOTE | 2020-05-30 06:40 | NUR ---
TRANSIT PLANNING DIRECTOR SUMMARY PT A/O X4. INDEPENDENT WITH WALKER. . MEDICATED TWICE FOR ANXIETY TODAY. PT DID NOT RECIEVE MUCH SLEEP TONIGHT. PT IS ANXIOUS TO GO HOME. VSS. PT REPORTS SHE HAD 7-8 SMALL LOOSE BOWEL MOVEMENTS OVERNIGHT.
--- NOTE | 2020-05-30 14:57 | NUR ---
RECHECKED PT BG IT WAS 104 2 HOURS AFTER LUNCH. AWARE AND STATED THE PT IS ABLE TO DISCHARGE NOW. VOCATIONAL TRAINER WORKING ON THE PT DISCHARGE CURRENTLY. PT CHAPARRO IS HERE VISITING.
[2020-05-30] MEDS ORDERED: FURO40 PO (15:03)
[2020-05-30] MEDS ORDERED: ONE-A-DAY PRO200 MCG PO (15:04)
[2020-05-30] MEDS ORDERED: B-1100 M2 PO (15:04)
[2020-05-30] MEDS ORDERED: VANCOCIN HCL250 MG PO (15:05)
--- NOTE | 2020-05-30 16:25 | NUR ---
DISCHARGE NOTE- PT WAS GIVEN VERBAL AND WRITTEN DISCHARGE INSTRUCTIONS AND ACKNOWLEDGED UNDERSTANDING OF THEM. PT RECIEVED HARD COPY SCRIPT FOR THE LIBRIUM. PT REFUSED ESCORT AND WC AND WALKED OUT WITH HER RIDE HOME. NO S&S OF DISTRESS AT THE TIME OF DISCHARGE.
--- NOTE | 2020-05-30 17:57 | NUR ---
ADMIT: 05/13/20 DISCHARGE: 05/30/20 DX: kristiani CC: cpeabarminda NEELIMA CALL: Call Jena or Juanito at home for neelima- appointment 1 week with NEELIMA. RESIDENCE: home, lives with Sister Juanito CAREGIVER: Juanito [phone] Emergency contact: DAVID RAFA ([place]) DX: chronic pancreatitis, htn, reflux , DM1, substance abuse, DME: pullups, cane, dm supplies, 4 wheel walker ordered from [facility] 05/29/20. CCM: no record HOME HEALTH: Patient chose [facility] for PT OT Bath aide. Will contact [facility] to order 05/29 SUMMARY: Admit 05/13/20 05/30/20 Discharge home, Sister to transport, can stop by pharmacy if needed. Reviewed NEELIMA letter with Jena, expecting [facility] call Fri or Mon to schedule follow up appointment.
== END 2020-05-30 15:30 | disposition home health service (06) | DRG 871 ==
LOC: ER 15:39 → MEDS 15:40 → PCU 05-14 18:20 → MEDS 05-19 10:22
PROVIDERS: Family Medicine; Internal Medicine; Internal Medicine Gastroenterology; Physician Assistant; ADMIT Internal Medicine
PROC: 30233N1 Transfusion of Nonautologous Red Blood Cells into Peripheral Vein, Percutaneous Approach (ICD-10-PCS; principal; 2020-05-14)
DX: A41.52 Sepsis due to Pseudomonas (principal); K85.90 Acute pancreatitis without necrosis or infection, unspecified; G93.41 Metabolic encephalopathy; N39.0 Urinary tract infection, site not specified; D61.818 Other pancytopenia; D62 Acute posthemorrhagic anemia; E72.20 Disorder of urea cycle metabolism, unspecified; E87.2 Acidosis; F10.239 Alcohol dependence with withdrawal, unspecified; E44.0 Moderate protein-calorie malnutrition; A04.72 Enterocolitis due to Clostridium difficile, not specified as recurrent; K86.1 Other chronic pancreatitis; N17.9 Acute kidney failure, unspecified; Z68.1 Body mass index [BMI] 19.9 or less, adult; Z20.822 Contact with and (suspected) exposure to COVID-19; E11.65 Type 2 diabetes mellitus with hyperglycemia; E86.0 Dehydration; E86.9 Volume depletion, unspecified; E87.5 Hyperkalemia; E87.6 Hypokalemia; F17.210 Nicotine dependence, cigarettes, uncomplicated; J44.9 Chronic obstructive pulmonary disease, unspecified; K21.9 Gastro-esophageal reflux disease without esophagitis; R74.8 Abnormal levels of other serum enzymes; W19.XXXA Unspecified fall, initial encounter; K70.30 Alcoholic cirrhosis of liver without ascites; E09.649 Drug or chemical induced diabetes mellitus with hypoglycemia without coma; T38.3X5A Adverse effect of insulin and oral hypoglycemic [antidiabetic] drugs, initial encounter
CPT/HCPCS: 36415; 36430; 70450; 71045; 74176; 80048; 80053; 81001; 82140; 82947; 83605; 83690; 83735; 84100; 84132; 85014; 85018; 85025; 85610; 86850; 86900; 86901; 86923; 87040; 87077; 87086; 87186; 87324; 87493; 93005; 93010; 94760; 96361; 96365; 96366; 96374; 96375; 96376; 97110; 97116; 97161; 97165; 97530; 99284-25; A9270; C9113; G0378; J0610; J0696; J1610; J1650; J1815; J2060; J2354; J2405; J3411; J3475; J3480; J7030; J7042; J7050; P9016; P9046; P9612

== ENCOUNTER 2020-06-16 14:05 | Inpatient (IN) | payer OTHER ==
[~2020-06-16] VITALS: Ht 170.2 cm; Wt 46.2 kg
[~2020-06-16 14:05] MED LIST changes: +ALBU90OI6 INH; +B-1100 M2 PO; +FAMO20 PO; +FOLI1 PO; +FURO40 PO; +GABA300 PO; +Hydroxyzine HCl50 MG PO; +METF500C PO; +METO50ER PO; +ONDA4ODT SL; +ONE-A-DAY PRO200 MCG PO; +PANCREAZE DR 11 EAC2 PO; +VANCOCIN HCL250 MG PO
[2020-06-16 14:28] LABS: Hematocrit 35.4 % (33.0-51.0); Hemoglobin 11.7 g/dL (11.5-16.0); Mean Corpuscular HGB 32.9 pg (26.0-34.0); Mean Corpuscular HGB Conc 33.1 g/dL (31.5-36.5); Mean Corpuscular Volume 99 fL (80-100); Platelet Count 245 K/mm3 (150-400); RDW Coefficient Variation 14.2 % (11.7-14.2); RDW Standard Deviation 52.5 fL (35.1-46.3); Red Blood Cell Count 3.56 M/mm3 (3.80-5.20)
[2020-06-16 14:50] LABS: Albumin, Blood 2.8 g/dL (3.4-5.0); Albumin/Globulin Ratio 0.7 (0.8-1.8); BASOPHILS ABSOLUTE MAN 0.13 K/mm3 (0.00-0.23); BASOPHILS PERCENT MAN 1 % (0-2); Bilirubin, Total 0.2 mg/dL (0.1-1.0); Bun/Creatinine Ratio 11.2 (12.0-20.0); Calcium, Blood 9.3 mg/dL (8.5-10.1); Creatinine, Blood 1.78 mg/dL (0.40-1.00); EOSINOPHILS ABSOLUTE MAN 0.55 K/mm3 (0.00-0.68); EOSINOPHILS PERCENT MAN 4 % (0-6); Globulin, Blood 4.1 g/dL (2.2-4.0); LYMPHOCYTES % ATYPICAL MANUAL 1 % (0-0); LYMPHOCYTES ABSOLUTE MAN 8.34 K/mm3 (0.84-5.20); LYMPHOCYTES PERCENT MAN 59 % (21-46); MONOCYTES ABSOLUTE MAN 1.25 K/mm3 (0.16-1.47); MONOCYTES PERCENT MAN 9 % (4-13); NEUTROPHILS ABSOLUTE MAN 3.61 K/mm3 (1.96-9.15); Potassium, Blood 4.1 mmol/L (3.5-5.5); SEG NEUTROPHILS PERCENT MAN 26 % (41-73); TOTAL CELLS COUNTED 100; Total Protein, Blood 6.9 g/dL (6.4-8.2)
[2020-06-16 15:16] LABS: Source, Urine Catheter
[2020-06-16 15:42] LABS: Appearance, Urine Clear (Clear); Bilirubin, Urine Neg (Neg); Blood, Urine Neg (Neg); Color, Urine Yellow (P-Yellow); Glucose Qualitative, Urine 2+ (Neg); Ketones, Urine Neg (Neg); Leukocyte Esterase, Urine 2+ (Neg); Nitrite, Urine Pos (Neg); Protein, Urine Neg (Neg); Urobilinogen, Urine NORM (Normal); pH, Urine 6.5 (5.0-8.0)
[2020-06-16 15:51] LABS: Red Blood Cells, Urine Not Seen /hpf (0-2); Squamous Epithelial Cells Not Seen /hpf (Few)
[2020-06-16 15:52] LABS: Bacteria Many /hpf; Renal Epithelial Few /hpf (0-Rare)
[2020-06-16 23:49] LABS: Influenza A, PCR NEGATIVE (NEGATIVE); Influenza B, PCR NEGATIVE (NEGATIVE); Resp Syncytial Virus, PCR NEGATIVE (NEGATIVE); SARS-Cov-2 (COVID-19) PCR, MMC NEGATIVE (NEGATIVE)
--- NOTE | 2020-06-16 23:56 | NUR ---
SPOKE WITH DR. SINGLETON REGARDING CRITICAL LOW CBG OF 44. PT ALERT ENOUGH TO BE TREATED PER HYPOGLYCEMIC PROTOCOL PO ROUTE. NEW ORDER TO CHECK CBG Q6. MOST RECENT CBG 80.
--- NOTE | 2020-06-17 04:31 | NUR ---
SHIFT SUMMARY: PT HAS BEEN INTERMITTENTLY CRYING AND HOLLERING OUT IN PAIN. PT AT TIMES WILL NOT RESPOND TO QUESTIONS ASKED AND WILL LAY WITH EYES CLOSED WHILE MAONING/GROANING; OTHER TIMES PT RESPONDING APPROPRIATLY. PT MEDICATED WITH NORCO AND 25MCG OF FENTANYL. AFTER ADMINISTRATION OF FENTANYL, O2 DROPPED IN 80'S. PT REMINDED TO TAKE DEEP BREATHS AND O2 BACK IN UPPER 90'S. BIOX IN PLACE. LUNGS CLEAR THROUGHOUT. LIBRIUM HELD IN BEGINNING OF SHIFT D/T PATIENT APPEARING SOMNOLENT. CBG CHECKED WHICH SHOWED A CRITICAL VALUE OF 44. HYPOGLYCEMIC PROTOCOL INITIATED PER ORDERS. CBG NOW STABLE. COVID TEST COMPLETE. NOBLE CATHTER PATENT AND DRAINING YELLOW URINE. RIGHT LEG INTERNALLY ROTATED AND RT FOOT WITH TRACE AMOUNT OF SWELLING. PT REPORTS THAT HER FOOT WILL INTERMITTENTLY SWELL. PT ALSO REPORTS NEUROPATHY TO BILATERAL FEET. REPORTS DRINKING 1 PINT OF VOLDKA/DAY. CIWA AT 6 WITH PT SHOWING SYMPTOMS OF ANXIETY, MILD AGITATION AND TREMORS. PT REPORTS BEING INCONTINENT AT BASELINE. STATES LIVING WITH HER SISTER SILVIA WHO IS HER PRIMARY SORT LINE.
[2020-06-17 05:04] LABS: BASOPHILS ABSOLUTE AUTO 0.05 K/mm3 (0.00-0.23); BASOPHILS PERCENT AUTO 1 % (0-2); EOSINOPHILS ABSOLUTE AUTO 0.25 K/mm3 (0.00-0.68); EOSINOPHILS PERCENT AUTO 3 % (0-6); Hematocrit 34.8 % (33.0-51.0); Hemoglobin 11.2 g/dL (11.5-16.0); IMMATURE GRAN ABSOLUTE AUTO 0.02 K/mm3 (0.00-0.10); IMMATURE GRAN PERCENT AUTO 0 % (0-1); LYMPHOCYTES ABSOLUTE AUTO 2.53 K/mm3 (0.84-5.20); LYMPHOCYTES PERCENT AUTO 31 % (21-46); MONOCYTES ABSOLUTE AUTO 0.66 K/mm3 (0.16-1.47); MONOCYTES PERCENT AUTO 8 % (4-13); Mean Corpuscular HGB 31.8 pg (26.0-34.0); Mean Corpuscular HGB Conc 32.2 g/dL (31.5-36.5); Mean Corpuscular Volume 99 fL (80-100); Mean Platelet Volume 11.6 fL (9.1-12.4); NEUTROPHILS ABSOLUTE AUTO 4.61 K/mm3 (1.96-9.15); NEUTROPHILS PERCENT AUTO 57 % (41-73); Platelet Count 201 K/mm3 (150-400); RDW Coefficient Variation 14.3 % (11.7-14.2); RDW Standard Deviation 52.9 fL (35.1-46.3); Red Blood Cell Count 3.52 M/mm3 (3.80-5.20); White Blood Cell Count 8.12 K/mm3 (4.00-11.30)
[2020-06-17 05:18] LABS: International Normalized Ratio 1.01; Prothrombin Time Results 10.8 Sec (9.7-11.5)
[2020-06-17 05:32] LABS: Albumin, Blood 2.8 g/dL (3.4-5.0); Albumin/Globulin Ratio 0.7 (0.8-1.8); Bilirubin, Total 0.2 mg/dL (0.1-1.0); Bun/Creatinine Ratio 12.7 (12.0-20.0); Calcium, Blood 9.1 mg/dL (8.5-10.1); Creatinine, Blood 1.73 mg/dL (0.40-1.00); Potassium, Blood 5.2 mmol/L (3.5-5.5); Total Protein, Blood 6.8 g/dL (6.4-8.2)
--- NOTE | 2020-06-17 11:23 | NUR ---
PT TO OR
--- NOTE | 2020-06-17 11:36 | NUR ---
INTO SDS VIA BED FROM SURG FLOOR. History, Chart, Medications and Allergies reviewed before start of procedure.Patient confirms NPO status and agrees with scheduled surgery. Surgical site prepped with 2% Chlorhexidine cloth wipe. Lungs clear T/O to Auscultation. ICE PACK IN PLACE UPON ARRIVAL. PT STATES IT HAS BEEN ON FOR OVER 30 MINUTES, RN REMOVED ICE PACK.
--- NOTE | 2020-06-17 12:04 | NUR ---
REPORT GIVEN TO DREAD BAIRD
--- NOTE | 2020-06-17 12:53 | NUR ---
06/17/20 1253 Francisco Javier Gaviria PATIENT ARRIVED TO OR WITH NOBLE CATH IN PLACE
--- NOTE | 2020-06-17 13:56 | NUR ---
ADMIT: 06/16/20 DISCHARGE: DX: Right Hip Fracture CC: kwilcox ADMIT: 05/13/20 DISCHARGE: 05/30/20 DX: SEPISI CC: CPEABODY NEELIMA CALL: CALL BEENA OR DAREN AT HOME FOR NEELIMA- APPOINTMENT 1 WEEK WITH NEELIMA. RESIDENCE: Home with sister CAREGIVER: DAREN [phone] EMERGENCY CONTACT: DAVID RAFA ([place]) HOME PHONE: DX: AMS, GERD, chronic pancreatitis, HTN, see list DME: cane, adult pull ups, DM supplies, see list CCM: no record HOME HEALTH: PATIENT CHOSE [facility] FOR PT OT BATH AIDE. WILL CONTACT MARGA TO ORDER 05/29 SUMMARY: Admit: 06/16/20 06/17/20- pt had surgery for broken hip today. She will need rehab placement when ready to discharge. SNF referral has been started on pt for placement. Will complete referral once appropriate. -lenora
--- NOTE | 2020-06-17 15:14 | NUR ---
ARRIVED TO UNIT FROM PACU SBP 78 UPON ARRIVAL TO FLOOR. PLACED IN REVERSE TRENDEL AND OPENED FLUIDS UP WIDE. SBP INCREASED TO 84. CALLED DR RUBIO AND OBTAINED ORDERS FOR NS FLUID BOLUS, WHICH ADMINISTERED AND MAINTENANCE FLUIDS. BOLUS INFUSING PER ORDERS AT THIS TIME. BP STABLE AT THIS TIME. PT AWAKE AND TAKING CLEAR LIQUIDS. PLACED ICE PACK TO RLE DUE TO PAIN. TWO AQUACEL TO R HIP. SUPERIOR AQUACEL HAS SMALL AMT SANGUINEOUS DRAINAGE NOTED. CALL LIGHT IN REACH.
[2020-06-18 04:23] LABS: BASOPHILS ABSOLUTE AUTO 0.03 K/mm3 (0.00-0.23); BASOPHILS PERCENT AUTO 1 % (0-2); EOSINOPHILS ABSOLUTE AUTO 0.19 K/mm3 (0.00-0.68); EOSINOPHILS PERCENT AUTO 3 % (0-6); Hematocrit 21.7 % (33.0-51.0); Hemoglobin 7.2 g/dL (11.5-16.0); IMMATURE GRAN ABSOLUTE AUTO 0.04 K/mm3 (0.00-0.10); IMMATURE GRAN PERCENT AUTO 1 % (0-1); LYMPHOCYTES ABSOLUTE AUTO 1.82 K/mm3 (0.84-5.20); LYMPHOCYTES PERCENT AUTO 30 % (21-46); MONOCYTES PERCENT AUTO 8 % (4-13); Mean Corpuscular HGB 32.9 pg (26.0-34.0); Mean Corpuscular HGB Conc 33.2 g/dL (31.5-36.5); Mean Corpuscular Volume 99 fL (80-100); NEUTROPHILS ABSOLUTE AUTO 3.45 K/mm3 (1.96-9.15); NEUTROPHILS PERCENT AUTO 57 % (41-73); RDW Coefficient Variation 14.2 % (11.7-14.2); RDW Standard Deviation 52.3 fL (35.1-46.3); Red Blood Cell Count 2.19 M/mm3 (3.80-5.20); White Blood Cell Count 6.03 K/mm3 (4.00-11.30)
[2020-06-18 04:24] LABS: Mean Platelet Volume 11.9 fL (9.1-12.4); Platelet Count 132 K/mm3 (150-400)
--- NOTE | 2020-06-18 05:10 | NUR ---
SHIFT SUMMARY: PT POD#1 FOR A RT HIP NAILING. AQUACEL DRESSINGS IN PLACE. MODERATE AMOUNT OF DRY BLOODY DRAINAGE NOTED TO LARGER AQUACEL. ICE PACK IN PLACE. BP HAS REMAINED STABLE THIS SHIFT. HR TACHY AT TIMES. O2 98% ON 1.5L VIA NC. LUNGS CLEAR THROUGHOUT. PT GIVEN SCHEDULED LIBRIUM IN BEGINNING OF SHIFT WELL PRN LIBRIUM THIS MORNING. PT BEGINNING TO REPORT INCREASE IN ANXIETY. TREMORS NOTED. PT ALSO REPORTS MILD HEADACHE AND NAUSEA. NO EMESIS. MEDICATED WITH ZOFRAN PER EMAR. PAIN BEING MANAGED WITH 1 NORCO PER ORDERS. CBG 318 LAST NIGHT AND COVERED PER SS. PLAN FOR PT/OT EVALUATION.
--- NOTE | 2020-06-18 18:49 | NUR ---
SHIFT SUMMARY NO ACUTE CHANGES THIS SHIFT. PATIENT IS ALERT, ORIENTED, ABLE TO MAKE HER NEEDS KNOWN. SHE IS A ONE PERSON TRANSFER, TOE TOUCH ON THE RIGHT LEG WITH WALKER AND GAIT BELT. SHE IS VERY PAINFUL TO TRANSFER AT THIS TIME. UP TO VITO X2 TODAY WITH THERAPY. MEDICATED FOR PAIN WITH 1 TAB NORCE X3. MEDICATED FOR ETOH WITHDRAWAL WITH LIBRIUM X3 AND 1MG ATIVAN X1. AT THIS TIME CIWA SCORES INDICATE STABLE WITHDRAWAL. HER SISTER DAVID WAS IN TO VISIT THIS WEEKEND AND WOULD LIKE TO BE INVOLVED IN DISCHARGE PLANNING. BED LOW AND LOCKED, CALL LIGHT WITHIN REACH. WILL CONT TO MONITOR. WILL CONT TO MONITOR AND PROVIDE REPORT TO REWINDER OPERATOR RN.
[2020-06-19 04:42] LABS: BASOPHILS ABSOLUTE AUTO 0.02 K/mm3 (0.00-0.23); BASOPHILS PERCENT AUTO 0 % (0-2); EOSINOPHILS ABSOLUTE AUTO 0.18 K/mm3 (0.00-0.68); EOSINOPHILS PERCENT AUTO 2 % (0-6); Hematocrit 24.1 % (33.0-51.0); Hemoglobin 7.9 g/dL (11.5-16.0); IMMATURE GRAN ABSOLUTE AUTO 0.02 K/mm3 (0.00-0.10); IMMATURE GRAN PERCENT AUTO 0 % (0-1); LYMPHOCYTES ABSOLUTE AUTO 1.74 K/mm3 (0.84-5.20); LYMPHOCYTES PERCENT AUTO 19 % (21-46); MONOCYTES ABSOLUTE AUTO 0.52 K/mm3 (0.16-1.47); MONOCYTES PERCENT AUTO 6 % (4-13); Mean Corpuscular HGB 32.9 pg (26.0-34.0); Mean Corpuscular HGB Conc 32.8 g/dL (31.5-36.5); Mean Corpuscular Volume 100 fL (80-100); Mean Platelet Volume 12.2 fL (9.1-12.4); NEUTROPHILS ABSOLUTE AUTO 6.85 K/mm3 (1.96-9.15); NEUTROPHILS PERCENT AUTO 74 % (41-73); Platelet Count 191 K/mm3 (150-400); RDW Coefficient Variation 13.9 % (11.7-14.2); RDW Standard Deviation 51.2 fL (35.1-46.3); White Blood Cell Count 9.33 K/mm3 (4.00-11.30)
--- NOTE | 2020-06-19 06:44 | NUR ---
POD 2 S/P R TNF. PT EMOTIONAL AND IRRITABLE THIS SHIFT. CIWA MAX 6. PT O2 SATS NOTED TO DROP DOWN TO 83% WHILE SLEEPING AFTER 1 NORCO AND LIBIRUM GIVEN TOGETHER, O2 PLACED TO KEEP SATS >90%. PAIN AND CIWA MEDS ALTERNATED TO KEEP SATS >90%. PT NEEDING MUCH ENCOURAGEMENT TO REPOSITION IN BED, BECOMES TEARFUL WHEN DISCUSSING MOBILITY. DRESSING CDI, RIGHT THIGH REMAINS FIRM/SWOLLEN, CAP REFILL WNL, PT DENIES SENSATION CHANGES. NOBLE CATH D/C THIS AM, ATTENDS PLACED PER PT REQ; AWAITING FIRST VOID. IVF CONT PER ORDERS. SUPPORT PROVIDED PRN.
--- NOTE | 2020-06-19 12:47 | NUR ---
CALL PLACED TO TO NOTIFY HIM THAT PATIENT IS NOT EATING AND CBG'S REMIAN IN THE LOW 300'S. OK TO CONT TO HOLD SS INSULIN. WILL CONT TO MONITOR
--- NOTE | 2020-06-19 18:28 | NUR ---
SHIFT SUMMARY PATIENT WAS NOT ABLE TO MOBILIZE OUT OF BED TODAY. SHE WAS VERY PAINFUL WITH ALL MOVEMENT. SHE IS CONTINET OF URINE, 1 PERSON ASSIT WITH THE BEDPAN. NO BM. SHE WAS MEDICATED FOR ETOH WITHRAWAL AND PAIN NEEDED. SHE RESTED MOST OF THE SHIFT, DECLINED ALL FOOD AND HAD VERY LITTLE PO FLUIDS. SHE RESTED UNTIL SHE NEEDED SOMETHING FOR PAIN AND/OR WITHDRAWAL. PATIENT HAS MAINTAINED HER SPO2 ON ROOM AIR. ORDERS FOR BOWEL CARE RECEIVED. PATIENT IS CURRENTLY RESTING. NO S/S OF DISTRESS OR DISCOMFORT. BED LOW AND LOCKED. CALL LIGHT WITHIN REACH. WILL CONT TO MONITOR AND PROVIDE REPORT TO ONCOMING RN.
--- NOTE | 2020-06-20 06:34 | NUR ---
SHIFT SUMMARY: BEENA AROUSES EASILY AND RESPONDS APPROPRIATELY. SHE DOES WEEP WHILE AWAKE MAKING COMMUNICATION DIFFICULT. SHE FREQUENTLY ANSWERS "I DON'T KNOW" TO QUESTIONS. SHE DID HAVE A BM THIS SHIFT. IF TO R SHOULDER PATENT, FLUIDS INFUSING. SHE IS TOLERATING MINIMAL PO INTAKE. SHE HAS NOT USED HER CALL LIGHT THIS SHIFT. SHE IS LYING IN BED WITH THE CALL LIGHT IN REACH. WILL REPORT TO DAY SHIFT RN.
--- NOTE | 2020-06-20 10:48 | NUR ---
SPOKE TO DR RUBIO REGARDING PT SWOLLEN RIGHT LEG AND KNEE. ALERTED HIM TO THE PATIENTS NEW REDDENED LABIA, WITH FIRMNESS AND WARMTH. ORDERS RECIEVED TO PHOTOGRAPH WOUND AND START LOVENOX. ORDERS ALSO RECIEVED FOR VENOUS DUPLEX.
--- NOTE | 2020-06-20 11:05 | NUR ---
ULTRASOUND IN ROOM. PT BACK TO BED WITH PHYSICAL THERAPY.
--- NOTE | 2020-06-20 18:22 | NUR ---
SHIFT SUMMARY POD 3 R HIP GAMMA NAIL PT AA0X4. VERY SLEEPY AT THIS TIME. HAS BEEN SLEEPING SOUNDLY FOR MAJORITY OF SHIFT. PT REPORTS PAIN OF 9/10 WHENEVER SHE IS AWAKE AND CRIES OUT LOUD WHILE AWAKE. PT INC OF BLADDER AND BOWEL. MULTIPLE SOFT, LOOSE STOOLS TODAY. LARGE AMOUNT OF OUTPUT. R LEG SWOLLEN. R KNEE SWOLLEN AND VERY SOFT TO TOUCH. PICTURE PLACED IN CHART OF R LABIA REDNESS AND SWELLING. DR RUBIO NOTIFIED. ORDERS RECIEVED FOR A ABD CT AND IV ABX. DR RUBIO STATED HE WILL BE IN TO SEE THE PATIENT IN THE MORNING. WILL PASS OFF TO ONCOMING SHIFT THE PLAN AND CONTINUE TO MEDICATE THE PATIENT PER EMAR.
--- NOTE | 2020-06-21 03:39 | NUR ---
HATCH SUPERVISOR SUMMARY A/OX3, ANXIOUS AND AGITATED T/O NIGHT. PT YELLING OUT IN PAIN, MEDICATED PER EMAR. OFFERED ADDITIONAL PRN GABAPENTIN, PT REFUSED. RLE APPEARS SWOLLEN AND TENDER TO THE TOUCH. R. LABIA SWOLLEN, RED, AND FIRM TO THE TOUCH BUT PT DENIES PAIN IN THE AREA. PT TO CT AT BEGINNING OF SHIFT, AWAITING IMAGING RESULTS. VSS, NO ACUTE CHANGES AT THIS TIME. BED IN LOWEST POSITION WITH CALL LIGHT IN REACH. WILL CONTINUE TO MONITOR AND REPORT TO ONCOMING RN.
--- NOTE | 2020-06-21 10:53 | NUR ---
SPOKE TO DR RUBIO REGARDING REDNESS OF RIGHT LABIA. PICTURE IN CHART SHOWN TO MD. ORDERS RECIEVED FOR VANCOMYCIN AND CEFEPIM TO START. CEFAZOLIN DC'D. CALLED DR RUBIO ONCE CT OF PELVIS RESULTS POSTED.
--- NOTE | 2020-06-21 13:00 | NUR ---
PT STATED SHE SMOKES 1 PACK PER DAY, SPOKE WITH DR RUBIO, ORDERS RECIEVED FOR NICOTINE PATCH RECIEVED. CLARIFIED ORDERS FOR CULTURE THAT WAS PLACED. WANTS US TO COLLECT SAMPLE OF PURULENT DRAINAGE FROM LABIAL AREA FOR CULTURE. HE STATED IF IT IS ABLE TO BE EXPRESSED OR COLLECTED WE ARE TO TRY.
--- NOTE | 2020-06-21 18:52 | NUR ---
SHIFT SUMMARY POD 4 R HIP GAMMA NAIL PT HAS BEEN ORIENTED X4. ALERT AT TIMES BUT OCCASIONALLY CONFUSED UPON WAKING. FREQUENTLY CRIES OUT LOUD AND YELLS. PT HAS BEEN CROSSING HER LEG AND ROLLING ON HER SIDE WITHOUT A PILLOW BETWEEN LEGS. EDUCATED PT MULTIPLE TIMES BUT PT IS UNRECEPTIVE. R LEG REMAINS SWOLLEN. SWOLLEN R LABIA HAS DECREASED IN SIZE DURING SHIFT. IT IS NOT FIRM TO TOUCH. DECLINES PAIN STILL AT THIS TIME. MEDICATED FOR PAIN PER EMAR GIVEN ATIVAN PER EMAR. ABLE TO GET UP TO CHAIR WITH 2 PER MOD/MAX ASSIST. PLAN IS TO CONTINUE TO WORK WITH PT
[2020-06-22 06:07] LABS: BASOPHILS ABSOLUTE AUTO 0.02 K/mm3 (0.00-0.23); BASOPHILS PERCENT AUTO 0 % (0-2); EOSINOPHILS ABSOLUTE AUTO 0.19 K/mm3 (0.00-0.68); EOSINOPHILS PERCENT AUTO 4 % (0-6); Hematocrit 19.9 % (33.0-51.0); Hemoglobin 6.7 g/dL (11.5-16.0); IMMATURE GRAN ABSOLUTE AUTO 0.02 K/mm3 (0.00-0.10); IMMATURE GRAN PERCENT AUTO 0 % (0-1); LYMPHOCYTES ABSOLUTE AUTO 1.61 K/mm3 (0.84-5.20); LYMPHOCYTES PERCENT AUTO 29 % (21-46); MONOCYTES ABSOLUTE AUTO 0.48 K/mm3 (0.16-1.47); MONOCYTES PERCENT AUTO 9 % (4-13); Mean Corpuscular HGB 33.8 pg (26.0-34.0); Mean Corpuscular HGB Conc 33.7 g/dL (31.5-36.5); Mean Corpuscular Volume 101 fL (80-100); Mean Platelet Volume 10.9 fL (9.1-12.4); NEUTROPHILS ABSOLUTE AUTO 3.17 K/mm3 (1.96-9.15); NEUTROPHILS PERCENT AUTO 58 % (41-73); Platelet Count 247 K/mm3 (150-400); RDW Coefficient Variation 14.3 % (11.7-14.2); RDW Standard Deviation 51.8 fL (35.1-46.3); Red Blood Cell Count 1.98 M/mm3 (3.80-5.20); White Blood Cell Count 5.49 K/mm3 (4.00-11.30)
--- NOTE | 2020-06-22 06:19 | NUR ---
SHIFT SUMMARY POD5 R HIP GAMMA NAIL, A/O X4, VSS, TOLERATING PO, VOIDING WELL W/ INTERMITTENT INCONTINENCE (ATTENDS IN PLACE), NO BM THIS SHIFT, PAIN WELL CONTROLLED, PT HAS RECURRENT HIGH ANXIETY AND IS OFTEN FOUND CRYING IN HER ROOM, ATIVAN GIVEN PER EMAR. TRANSFERS W/ 1-2 PER ASSIST (TTWB RLE). CALL LIGHT IN REACH, WILL CONTINUE TO MONITOR AND REPORT TO ONCOMING DAY RN.
[2020-06-22 06:37] LABS: Bun/Creatinine Ratio 11.2 (12.0-20.0); Calcium, Blood 8.5 mg/dL (8.5-10.1); Creatinine, Blood 1.07 mg/dL (0.40-1.00); Potassium, Blood 5.2 mmol/L (3.5-5.5)
--- NOTE | 2020-06-22 19:26 | NUR ---
SHIFT SUMMARY: NO ACUTE CHANGES TO REPORT THIS SHIFT. PT A&O; IRRITABLE; ANXIOUS; CALLS OUT T/O SHIFT. MEDICATED FOR PAIN & ANXIETY PER EMAR. TRANSFUSED 1U PRBCs THIS SHIFT R/T HGB 6.7; PT TOLERATED WELL. PRN HYDRALAZINE FOR ELEVATED BPs X1. AWAITING PLACEMENT. REPORT GIVEN TO ONCOMING RN.
[2020-06-23 05:09] LABS: BASOPHILS ABSOLUTE AUTO 0.02 K/mm3 (0.00-0.23); BASOPHILS PERCENT AUTO 0 % (0-2); EOSINOPHILS ABSOLUTE AUTO 0.27 K/mm3 (0.00-0.68); EOSINOPHILS PERCENT AUTO 6 % (0-6); Hematocrit 24.9 % (33.0-51.0); Hemoglobin 8.4 g/dL (11.5-16.0); IMMATURE GRAN ABSOLUTE AUTO 0.03 K/mm3 (0.00-0.10); IMMATURE GRAN PERCENT AUTO 1 % (0-1); LYMPHOCYTES ABSOLUTE AUTO 1.31 K/mm3 (0.84-5.20); LYMPHOCYTES PERCENT AUTO 27 % (21-46); MONOCYTES ABSOLUTE AUTO 0.53 K/mm3 (0.16-1.47); MONOCYTES PERCENT AUTO 11 % (4-13); Mean Corpuscular HGB 31.7 pg (26.0-34.0); Mean Corpuscular HGB Conc 33.7 g/dL (31.5-36.5); Mean Corpuscular Volume 94 fL (80-100); Mean Platelet Volume 10.6 fL (9.1-12.4); NEUTROPHILS ABSOLUTE AUTO 2.74 K/mm3 (1.96-9.15); NEUTROPHILS PERCENT AUTO 56 % (41-73); Platelet Count 255 K/mm3 (150-400); RDW Coefficient Variation 17.3 % (11.7-14.2); RDW Standard Deviation 59.8 fL (35.1-46.3); Red Blood Cell Count 2.65 M/mm3 (3.80-5.20)
--- NOTE | 2020-06-23 07:10 | NUR ---
recved report from previous shift BRIE Guzman. pt sleeping in bed, bed in lowest position, call light within reach, bed rails up x 2, chest rise
[2020-06-23 11:50] LABS: Vancomycin, Trough 45.7 ug/mL (5.0-10.0)
--- NOTE | 2020-06-23 11:50 | NUR ---
CRITICAL HIGH VANCO OF 45.7 REPORTS BY FRANCY IN LAB; THIS RN NOTIFIED PHARMACY.
--- NOTE | 2020-06-23 15:38 | NUR ---
following pt's bath, pt remains very tearful. medicated per mar and provided guided imagery to assist the pt in calming herself.
--- NOTE | 2020-06-23 17:08 | NUR ---
SHIFT SUMMARY: PT REMAINED A/O X 4. PT HAS REMAINED COOPERATIVE WITH TEARFULNESS T/O SHIFT. WHEN ASKED IF PT IS PAINFUL OR IF THE TEARS ARE EMOTIONAL, PT INDICATES SHE IS EMOTIONAL. PT PROVIDED WITH ANALGESIA PER MAR, RATES HER PAIN AT 9/10 PRIOR TO ADMINISTRATION, 6/10 ON REASSESSMENT. MD MADE AWARE OF PT'S EMOTIONAL STATES, ORDERS RECEIVED. PT TOLERATED PO INTAKE THIS SHIFT WITH NO N/V, DID HAVE ONE BM THIS SHIFT, VOIDING AND PERIODICIALLY INCONTINENT, PROVIDED WITH ATTENDS/PULL UP BRIEFS. PT UP IN CHAIR FOR APPROX 6 HRS THIS SHIFT, BREAKFAST/LUNCH IN CHAIR. PT SHOWERED THIS SHIFT, USED FWW AND GAIT BELT WHILE UP IN ROOM.
--- NOTE | 2020-06-24 04:31 | NUR ---
ROOM CHANGE PT MOVED TO ROOM 29 DUE TO MAKING TOO MUCH NOISE AND BEING DISRUPTIVE TO NEARBY PATIENTS. PT COMFORTABLY RESTING IN NEW ROOM W/ NO COMPLAINTS AT THIS TIME.
--- NOTE | 2020-06-24 04:33 | NUR ---
SHIFT SUMMARY POD7 R HIP GAMMA NAIL, A/O X4 THOUGH AT TIMES SHE APPEARS TO BE A LITTLE SLOW WHEN STAFF COME INTO THE ROOM, PT TENDS TO "CRY" OFTEN AND GIVES MIXED ANSWERS ON WHAT SHE NEEDS/WHY SHE IS CRYING (SOMETIMES PAIN, SOMETIMES SHE "DOESN'T KNOW"). VOIDING WELL THOUGH MOSTLY INCONTINENTLY, MULTIPLE LOOSE BM THIS SHIFT (ALSO INCONTINENT), PT DOES CALL ABOUT NEEDING TO GO BUT IS USUALLY ALREADY GOING WHEN STAFF ARRIVE (SOMETIMES LITTLE 1 MINUTE AFTER CALLING), REPORTS PAIN W/ MOVEMENT THOUGH SHE IS ABLE TO ASSIST W/ ROLLING DURING ATTENDS CHANGES. TOLERATING PO W/ NO C/O N/V. CALL LIGHT IN REACH, WILL CONTINUE TO MONITOR AND REPORT TO ONCOMING DAY RN.
[2020-06-24 05:06] LABS: Creatinine, Blood 0.96 mg/dL (0.40-1.00); Vancomycin, Random 25.1 ug/mL
--- NOTE | 2020-06-24 17:12 | NUR ---
06/24/20 Patient remains to have a snf recommendation, [facility] in [place] does not have beds today. I asked Jena if she would be willing to go to [place] for snf. She agreed. Sent referral checklist to Armida at [facility] in [place], Armida called me back saying Luz Navae said she should not be accepted. Luz Chinchilla agreed to forward notes to armida to review.. cp Follow up with Shyla on Wednesday. cp
--- NOTE | 2020-06-24 18:33 | NUR ---
SHIFT SUMMARY PT A&OX4, VSS, POD8 R HIP NAIL, AQUACEL X2, TTWB. AMB W/FWW & GB TO BRP/CHAIR; UP TO CHAIR FOR MEALS. PAIN TREATED WITH 5 MG NORCO; ANXIETY TREATED WITH 1.5 MG ATIVAN PO. CBG AC/HS. YEVGENIY PO, DENIES N&V. VOIDING WELL; BMS+ TODAY - STOOL SOFTENERS HELD. WILL REPORT TO ONCOMING NOC BRIE.
--- NOTE | 2020-06-25 04:10 | NUR ---
SHIFT SUMMARY: PT POD#9 FOR R HIP GAMMA NAILING. AQUAUCEL DRESSINGS C/D/I. PT OUT OF BED SEVERAL TIMES TO BATHROOM WITH MINIMAL ASSIST AND FWW. TTWB. PAIN BEING MANAGED WITH 5MG NORCO Q4. TREATED WITH 1.5MG ATIVAN FOR ANXIETY. PT TEARFUL/ANXIOUS WHILE AWAKE. PT USING CALL LIGHT TO GO TO BATHROOM BUT ALSO VOIDING IN ATTENDS. VS WNL T/O NIGHT. PT REPOSITONING SELF IN BED INDEPENDENTLY.
[2020-06-25 04:58] LABS: BASOPHILS ABSOLUTE AUTO 0.03 K/mm3 (0.00-0.23); BASOPHILS PERCENT AUTO 1 % (0-2); EOSINOPHILS ABSOLUTE AUTO 0.31 K/mm3 (0.00-0.68); EOSINOPHILS PERCENT AUTO 5 % (0-6); Hematocrit 26.9 % (33.0-51.0); Hemoglobin 8.8 g/dL (11.5-16.0); IMMATURE GRAN ABSOLUTE AUTO 0.07 K/mm3 (0.00-0.10); IMMATURE GRAN PERCENT AUTO 1 % (0-1); LYMPHOCYTES ABSOLUTE AUTO 2.47 K/mm3 (0.84-5.20); LYMPHOCYTES PERCENT AUTO 38 % (21-46); MONOCYTES ABSOLUTE AUTO 0.71 K/mm3 (0.16-1.47); MONOCYTES PERCENT AUTO 11 % (4-13); Mean Corpuscular HGB 30.9 pg (26.0-34.0); Mean Corpuscular HGB Conc 32.7 g/dL (31.5-36.5); Mean Corpuscular Volume 94 fL (80-100); NEUTROPHILS ABSOLUTE AUTO 2.87 K/mm3 (1.96-9.15); NEUTROPHILS PERCENT AUTO 44 % (41-73); Platelet Count 283 K/mm3 (150-400); RDW Coefficient Variation 15.9 % (11.7-14.2); RDW Standard Deviation 54.2 fL (35.1-46.3); Red Blood Cell Count 2.85 M/mm3 (3.80-5.20); White Blood Cell Count 6.46 K/mm3 (4.00-11.30)
--- NOTE | 2020-06-25 05:13 | NUR ---
BACK TO BED. RESTING CALL LIGHT IN REACH.
[2020-06-25 05:28] LABS: Alanine Aminotransfer (ALT/SGP 14 U/L (12-78); Albumin, Blood 1.9 g/dL (3.4-5.0); Albumin/Globulin Ratio 0.5 (0.8-1.8); Alk Phos 141 U/L (50-136); Anion Gap 6 mmol/L (6-16); Aspartate Aminotrans (AST/SGOT 14 U/L (12-37); Bilirubin, Total 0.8 mg/dL (0.1-1.0); Blood Urea Nitrogen 17 mg/dL (8-24); Bun/Creatinine Ratio 15.9 (12.0-20.0); CO2, Blood 28 mmol/L (21-32); Calcium, Blood 8.6 mg/dL (8.5-10.1); Chloride, Blood 100 mmol/L (98-108); Creatinine, Blood 1.07 mg/dL (0.40-1.00); Glomerular Filtration Rate 59 (60-); Glucose, Blood 274 mg/dL (70-99); Potassium, Blood 4.4 mmol/L (3.5-5.5); Sodium, Blood 134 mmol/L (136-145); Total Protein, Blood 5.9 g/dL (6.4-8.2); Vancomycin, Random 13.7 ug/mL
--- NOTE | 2020-06-25 18:32 | NUR ---
SHIFT SUMMARY PT A&OX4, VSS, CBG COVERAGE REQ. POD9 RHIP NAILING, AQUACEL CDI, TTWB. AMBULATES W/SBA/FWW/GB TO BRP; HALLWAY WITH PHYSICAL THERAPY; UP TO CHAIR T/O ENTIRE SHIFT. PT HAS BEEN PLEASANT, COOPERATIVE WITH CARE AND GENUINELY PARTICIPATING IN HER OWN CARE. PAIN MANAGED WITH 5 MG NORCO AND ATIVAN 1 MG PO, PRN. YEVGENIY PO, DENIES N&V, REPORTS FEELING MORE HUNGRY TODAY. VOIDING WELL, 1 BM THIS SHIFT. WILL REPORT TO ONCOMING NOC RN.
[2020-06-26 06:06] LABS: Vancomycin, Random 16.6 ug/mL
--- NOTE | 2020-06-26 10:43 | NUR ---
THERAPY WORKING W/PT.
--- NOTE | 2020-06-26 17:19 | NUR ---
SUMMARY NO ACUTE CHANGES T/O SHIFT. MEDICATED PER ORDERS FOR PAIN. MEDICATED ONCE DURING SHIFT FOR ANXIETY. PT SITTING UP IN CHAIR. WORKED W/THERAPY. AMBULATES TO RESTROOM W/SBA. REFUSED LUNCH TRAY, STATING HAD STOMACH ACHE. SIPPING WATER. CALL LIGHT IN REACH.
--- NOTE | 2020-06-26 21:40 | NUR ---
PT RESTING COMFORTABLY IN BED.
--- NOTE | 2020-06-27 04:29 | NUR ---
SHIFT SUMMARY: 45 Y/O SLENDER FEMALE RESTED COMFORTABLE ALL SHIFT; PT DID UTILIZE RESTROOM EVERY 2 HOURS AND AMBULATED VIA WALKER TO BATHROOM X 1 STANDBY ASSIST WITH GAIT SLOW AND STEADY; VOIDING WITHOUT ISSUE; ALERT AND ORIENTED X 3, SLIGHTLY FORGETFUL AT TIMES, HOWEVER; ABLE TO REORIENT AND FOLLOW SIMPLE VERBAL COMMANDS; PT C/O RIGHT HIP PAIN RATED 7/10 WITH NORCO 5/325 MG PO GIVEN WITH RELIEF FELT; PTS RIGHT HIP AQUACELL DRESSINGS X 2 DRY AND INTACT; BED ALARM APPLIED FOR SAFETY, BED LOW POSITION WITH CALL LIGHT AT SIDE.
[2020-06-27 06:27] LABS: Vancomycin, Random 17.5 ug/mL
--- NOTE | 2020-06-27 14:28 | NUR ---
AMBULATING IN [facility] W/THERAPY.
--- NOTE | 2020-06-27 14:46 | NUR ---
PT BECAME DIZZY WORKING W/THERAPY MICHEL FROM PT HAD PATIENT SIT AND TAKE VS. REC'D SBP READING IN 70S. BROUGHT BACK TO ROOM IN WC AND ASSISTED TO BED. PT SAID DIZZINESS RESOLVING. SBP LYING BED WAS 123. CBG CHECKED WITH RESULT OF 147. PT RESTING IN BED W/CALL LIGHT IN REACH.
--- NOTE | 2020-06-27 17:06 | NUR ---
SUMMARY PT RESTING IN BED AT THIS TIME, WATCHING TV. AMBULATED TO RESTROOM AND BACK SEVERAL TIMES DURING SHIFT TO VOID W/MINIMAL ASSIST. PT HAD EPISODE OF HYPOTENSION AND DIZZINESS WHILE WORKING W/THERAPY. HAS SINCE RESOLVED AND VSS. MEDICATED PER ORDERS FOR PAIN. CALL LIGHT IN REACH. AWAITING ACCEPTING SNF.
--- NOTE | 2020-06-28 07:20 | NUR ---
SHIFT SUMMARY S/P R HIP FX REPAIR ON 06/17/20, A/O X4, GLUCOSE LOW NEAR START OF SHIFT, PT GIVEN SNACKS TO BRING IT BACK UP, RECHECK SHOW IT BACK WNL, VSS, PAIN WELL CONTROLLED PER EMAR, VOIDING AND PASSING FLATUS/BM. NO ACUTE EVENTS THIS SHIFT. CALL LIGHT IN REACH, REPORT GIVEN TO DAY RN.
--- NOTE | 2020-06-28 10:18 | NUR ---
PT REPORTS DIZZINESS WHILE WORKING WITH THERAPY, PT HYPOTENSIVE AT 75/54 AFTER WALKING IN ROOM. PT REPORTS DIZZINESS RESLOVED AFTER LYING BACK DOWN. WILL MAKE DR. JOSEPH AWARE AND CTM PT STATUS.
--- NOTE | 2020-06-28 15:24 | NUR ---
06/28/20- met with pt, discussed that we are trying to find a facility for her to go to for therapy. Discussed with her that the barriers that we are running into are no beds, the facility doesn't take her insurance and her history of substance abuse. We talked about that she needs treatment for both her addiction and leg. We discussed options for treatment that could work injunction with her physical treatment for her leg. Discussed [facility] and their option of doing online treatments and meetings. Pt was interested in information about [facility]. Provided pt with referral form, information about their alcoholism treatment program and general information about [facility]. Discussed with pt what support she has at home if she were to be d/c home. She states that she lives with her sister and her family. She doesn't feel she could get the support from them if she went home. Spoke with PT and they don't feel that at this time she is not stable to go home yet. She is working towards this and getting stronger every day. Updated PT on barriers with finding placement. We discussed options for pt. and the idea of pt going to adult foster home until she is stronger to go back home with family. PT therapist not comfortable changing his recommendation at this time but sees that it could be changed later next week as long as pt keeps progressing as she does. The following places have been contacted for rehab: [facility] [phone] (declined due to history of meth and alcohol abuse.) [facility]:, [place] [phone] (declined due to history of meth and alcohol abuse.) [facility], [place]: [phone] (in review with central admissions. Facility is under execuative orders and 10 other facilities in [place].) [facility]:, [place] [phone] (declined due to history of meth and alcohol abuse & there is a long wait list. [facility]: [phone] (declined due to not accepting pt's insurance) [facility], [place]: (sent packet, LMOM, potential bed on Wednesday if approved.) [facility], [place]: [phone] (in review with central admissions. Facility is under execuative orders and 10 other facilities in [place].) [facility]: [phone] (LMOM) [facility]: [phone] (reviewed twice, even went through corporate review, declined both times.) [facility]: [phone] (sent packet for review, LMOM follow up call) [facility]: [phone] reviewed twice, even went through corporate review, declined both times.) [facility]: [phone] (Packet sent for review, LMOM follow up call.) -lenora
--- NOTE | 2020-06-28 18:23 | NUR ---
SUMMARY: PT S/P GAMMA NAILING OF R HIP ON 06/17. VSS, A/O. NO ACUTE CHANGE, SURGICAL SITE WNL. PT HAD BM TODAY. NO REPORT OF DIZZINESS CURRENTLY. PT REPORTS PAIN WELL MANAGED WITH 1 NARCO Q4. AWAITING PLACEMENT AT THIS TIME, SEE CATERPILLAR DRIVER NOTES. WILL CTM AND REPORT TO NOC RN.
--- NOTE | 2020-06-29 04:16 | NUR ---
SHIFT SUMMARY: BEENA IS A&OX4. VSS, NO ACUTE EVENTS OVERNIGHT. SHE REPORTS ADEQUATE PAIN CONTROL WITH ONE TABLET OF THE NORCO. SHE DID COMPLAIN OF ANXIETY AND REPORTED GOOD RESULTS WITH 1 MG OF ATIVAN. SHE IS A ONE PERSON ASSIST WITH THE GAIT BELT AND FWW. SHE IS TOLERATING PO INTAKE WELL. ATTENDS IN PLACE, NO INCONTINENT EPISODES OVERNIGHT. SHE HAS BEEN USING THE CALL LIGHT APPROPRIATELY. SHE IS LYING IN BED WITH THE CALL LIGHT IN REACH. WILL REPORT TO DAY SHIFT RN.
--- NOTE | 2020-06-29 17:45 | NUR ---
SHIFT SUMMARY PT A&OX4, VSS, POD12, AQUACEL CDI-CHANGED TODAY, TTWB. AMBULATES WITH SBA/FWW/GB. YEVGENIY PO, CBG AC/HS - COVERAGE REQUIRED. VOIDING WELL, BMS TODAY. PAIN MANAGED WITH 5 MG NORCO; ANXIETY MANAGED WITH 1 MG ATIVAN, BOTH PRN. USES CALL LIGHT APPROPRIATELY. WILL REPORT TO ONCOMING NOC RN.
--- NOTE | 2020-06-30 05:08 | NUR ---
SHIFT SUMMARY: BEENA IS A&OX4. VSS, NO ACUTE EVENTS OVERNIGHT. SHE REPORTS ADEQUATE PAIN CONTROL WITH NORCO. SHE IS A ONE PERSON ASSIST TO THE BATHROOM, ATTENDS IN PLACE. AQUACELL X 2 TO RIGHT HIP. SHE IS TOLERATING PO INTAKE WELL. SHE IS ABLE TO MAKE HER NEEDS KNOWN. SHE IS LYING IN BED WITH THE CALL LIGHT IN REACH. WILL REPORT TO DAY SHIFT RN.
--- NOTE | 2020-06-30 18:44 | NUR ---
SHIFT SUMMARY A&OX4, VSS, NO IV ACCESS NEEDED, CBG AC/HS - DINNER CNI. POD13 NAILING, AQUACEL CDI, TTWB, AMBULATES WITH FWW/SBA TO BRP, UP TO CHAIR. YEVGENIY PO. SHOWERED TODAY. PAIN MANAGED WITH 5 MG NORCO; ANXIETY WITH PRN 0.5-1 MG ATIVAN PO. WILL REPORT TO ONCOMING NOC RN.
--- NOTE | 2020-07-01 04:13 | NUR ---
SHIFT SUMMARY: BEENA AROUSES EASILY AND RESPONDS APPROPRIATELY. VSS, NO ACUTE EVENTS OVERNIGHT. SHE REPORTS MODERATE PAIN CONTROL WITH THE NORCO. SHE IS A ONE PERSON STANDBY ASSIST WITH THE FWW. SHE IS TOLERATING PO INTAKE WELL. SHE CONTINUES TO HAVE INTERMITTENT BOUTS OF ANXIETY FOR WHICH SHE REPORTS RELIEF WITH THE LORAZEPAM. NO DIFFICULTIES VOIDING. SHE HAS BEEN PLEASANT AND COOPERATIVE THIS SHIFT, NO WITHDRAWL SYMPTOMS. SHE IS LYING IN BED WITH HER CALL LIGHT IN REACH. WILL REPORT TO DAY SHIFT RN.
--- NOTE | 2020-07-01 14:49 | NUR ---
HTN/ORTHOSTATIC HYPOTENSION ALTHOUGH PT IS NOTED TO HAVE HTN. WHEN WORKING WITH THERAPY HAS HYPOTENSION DIPPING INTO SBP OF 80's. CALLED AND DISCUSSED.
--- NOTE | 2020-07-01 17:28 | NUR ---
07/01/20- received call from Mela Vazquez, director of medical floor. She requested update on status of placement for pt. She reports that PT has stated that pt has reached her baseline. Explained to Mela that packets have been sent to facilities from [facility] to [facility]. She has been declined. Mela asked with other options there are for pt. Stated that pt could go home with home health with therapy services. She stated that she would contact the [facility] doctor seeing pt to discuss this option. Received call from [facility] in [place], they never received packet on pt. Faxed a packet to [phone]. Received fax confirmation that the fax went through. They will call back tomorrow to let us know their decision. -lenora
--- NOTE | 2020-07-01 18:11 | NUR ---
SHIFT SUMMARY PT HAS DONE WELL TODAY. UP IN CHAIR MOST OF DAY. BM'S CONTINUE. ALTHOUGH PT IS RUNNING HYPERTENSIVE WHILE AT REST IS EXPERIENCING SOME ORTHOSTATIC HYPOTENSION BUT DENIES DIZZINESS.
--- NOTE | 2020-07-02 04:22 | NUR ---
SHIFT SUMMARY AOX4. TEARFUL & ANXIOUS @TIMES, MEDICATED 1X c 50MG ATARAX & PT ABLE TO REST COMFORTABLY. VSS. POD 15 c SURGICAL R HIP REPAIR, AQUACEL DRESSING C/D/I. REPORTS 8/10 PAIN R THIGH/HIP c MOVEMENT, MEDICATED 2X c NORCO, PAIN DROPS TO 6/10. HELD HS BOWEL CARE SINCE PT HAD 2 LOOSE BM THIS SHIFT & PER REPORT WAS HAVING LOOSE BM ON DAY SHIFT. STATES SHE HAS CHRONIC LOOSE BM. DENIES N/V OR DYSPNEA. AWAITING SAFE DC PLAN, CALL LIGHT IN REACH & WCTM.
[2020-07-02] MEDS ORDERED: BUSP5 PO (11:58)
[2020-07-02] MEDS ORDERED: NICO21TP TOP (12:00)
[2020-07-02] MEDS ORDERED: HYDROCODONE-AC1 EA10 PO (12:03)
--- NOTE | 2020-07-02 16:05 | NUR ---
DISCHARGE ESCORTED OUT VIA [facility] W/C. PROVIDED W/ EDUCATION & SCRIPT; 2 OTHER MEDS FAXED TO [facility]. EATING, DRINKING, VOIDING, & FREQ BM's. SBA W/ FWW ALL TODAY. EMOTIONAL AT D/C. AFTER BLOOD TIMOTHY CHECK WAS LOW. DRANK 2 JUICES, ATE FRUIT CUP, & NÉSTOR CRACKERS; PREPORTED FEELING "NORMAL AGAIN"
== END 2020-07-02 16:10 | disposition home or self-care (01) | DRG 481 ==
LOC: ER 14:05 → SURS 15:57
PROVIDERS: Emergency Medicine; Internal Medicine; Orthopaedic Surgery; Pharmacist; ADMIT Internal Medicine Gastroenterology
PROC: 0QS606Z Reposition Right Upper Femur with Intramedullary Internal Fixation Device, Open Approach (ICD-10-PCS; principal; 2020-06-16)
PROC: 3E0T33Z Introduction of Anti-inflammatory into Peripheral Nerves and Plexi, Percutaneous Approach (ICD-10-PCS; 2020-06-16)
PROC: 3E0T3BZ Introduction of Anesthetic Agent into Peripheral Nerves and Plexi, Percutaneous Approach (ICD-10-PCS; 2020-06-17)
PROC: 30233N1 Transfusion of Nonautologous Red Blood Cells into Peripheral Vein, Percutaneous Approach (ICD-10-PCS; 2020-06-18)
DX: S72.141A Displaced intertrochanteric fracture of right femur, initial encounter for closed fracture (principal); F10.239 Alcohol dependence with withdrawal, unspecified; N17.9 Acute kidney failure, unspecified; N39.0 Urinary tract infection, site not specified; D62 Acute posthemorrhagic anemia; E44.0 Moderate protein-calorie malnutrition; D69.6 Thrombocytopenia, unspecified; N76.2 Acute vulvitis; Z20.822 Contact with and (suspected) exposure to COVID-19; F41.1 Generalized anxiety disorder; J44.9 Chronic obstructive pulmonary disease, unspecified; M81.0 Age-related osteoporosis without current pathological fracture; F17.210 Nicotine dependence, cigarettes, uncomplicated; I10 Essential (primary) hypertension; K70.30 Alcoholic cirrhosis of liver without ascites; F15.10 Other stimulant abuse, uncomplicated; E11.65 Type 2 diabetes mellitus with hyperglycemia; K21.9 Gastro-esophageal reflux disease without esophagitis; Z68.23 Body mass index [BMI] 23.0-23.9, adult; Z98.51 Tubal ligation status; Z88.1 Allergy status to other antibiotic agents; Z88.2 Allergy status to sulfonamides; Z88.8 Allergy status to other drugs, medicaments and biological substances; Z79.2 Long term (current) use of antibiotics; Z79.84 Long term (current) use of oral hypoglycemic drugs; Z79.899 Other long term (current) drug therapy; W01.0XXA Fall on same level from slipping, tripping and stumbling without subsequent striking against object, initial encounter; Y92.000 Kitchen of unspecified non-institutional (private) residence as the place of occurrence of the external cause
CPT/HCPCS: 0241U; 36415; 36430; 51702; 64450; 71045; 72192; 73502; 73552; 80048; 80053; 80202; 81001; 82140; 82565; 82947; 85025; 85610; 86850; 86900; 86901; 86923; 87040; 87077; 87086; 87186; 93005; 93010; 93970; 94760; 94762; 97110; 97112; 97116; 97162; 97166; 97530; 97535; 99285-25; A9270; C1713; C1769; G0480; J0360; J0692; J0696; J1650; J1885; J2060; J2250; J2310; J2370; J2405; J2704; J2765; J2795; J3010; J3370; J7030; J7050; J7120; P9016

== ENCOUNTER 2020-08-22 14:24 | Inpatient (IN) | payer OTHER ==
[~2020-08-22] VITALS: Ht 152.4 cm; Wt 41.2 kg
[~2020-08-22 14:24] MED LIST changes: +BUSP5 PO; +HYDROCODONE-AC1 EA10 PO; +NICO21TP TOP
[2020-08-22 15:00] LABS: BASOPHILS ABSOLUTE AUTO 0.02 K/mm3 (0.00-0.23); BASOPHILS PERCENT AUTO 0 % (0-2); EOSINOPHILS ABSOLUTE AUTO 0.08 K/mm3 (0.00-0.68); EOSINOPHILS PERCENT AUTO 2 % (0-6); Hematocrit 27.7 % (33.0-51.0); Hemoglobin 10.4 g/dL (11.5-16.0); IMMATURE GRAN ABSOLUTE AUTO 0.03 K/mm3 (0.00-0.10); IMMATURE GRAN PERCENT AUTO 1 % (0-1); LYMPHOCYTES ABSOLUTE AUTO 2.51 K/mm3 (0.84-5.20); LYMPHOCYTES PERCENT AUTO 47 % (21-46); MONOCYTES ABSOLUTE AUTO 0.48 K/mm3 (0.16-1.47); MONOCYTES PERCENT AUTO 9 % (4-13); Mean Corpuscular HGB 32.6 pg (26.0-34.0); Mean Corpuscular HGB Conc 37.5 g/dL (31.5-36.5); Mean Corpuscular Volume 87 fL (80-100); Mean Platelet Volume 11.8 fL (9.1-12.4); NEUTROPHILS ABSOLUTE AUTO 2.23 K/mm3 (1.96-9.15); NEUTROPHILS PERCENT AUTO 42 % (41-73); Platelet Count 181 K/mm3 (150-400); RDW Coefficient Variation 12.2 % (11.7-14.2); RDW Standard Deviation 39.2 fL (35.1-46.3); Red Blood Cell Count 3.19 M/mm3 (3.80-5.20); White Blood Cell Count 5.35 K/mm3 (4.00-11.30)
[2020-08-22 15:04] LABS: Source, Urine Catheter
[2020-08-22 15:18] LABS: Base Excess Venous -3.5 mmol/L; Bicarbonate Venous 21.2 mmol/L (24.0-30.0); PCO2 Venous 52.1 mmHg (38-42); PO2 Venous 62.6 mmHg (38-42); pH Blood Venous 7.26 (7.34-7.37)
[2020-08-22 15:19] LABS: Albumin, Blood 2.8 g/dL (3.4-5.0); Albumin/Globulin Ratio 0.9 (0.8-1.8); Bilirubin, Total 0.2 mg/dL (0.1-1.0); Bun/Creatinine Ratio 24.1 (12.0-20.0); Calcium, Blood 8.1 mg/dL (8.5-10.1); Creatinine, Blood 1.66 mg/dL (0.40-1.00); Potassium, Blood 4.5 mmol/L (3.5-5.5); Total Protein, Blood 5.8 g/dL (6.4-8.2)
[2020-08-22 15:23] LABS: Appearance, Urine Clear (Clear); Bilirubin, Urine Neg (Neg); Blood, Urine 1+ (Neg); Color, Urine Yellow (P-Yellow); Glucose Qualitative, Urine 4+ (Neg); Ketones, Urine Neg (Neg); Leukocyte Esterase, Urine 1+ (Neg); Nitrite, Urine Neg (Neg); Protein, Urine 1+ (Neg); Urobilinogen, Urine NORM (Normal)
[2020-08-22 15:49] LABS: Bacteria Few /hpf; Squamous Epithelial Cells Not Seen /hpf (Few); Yeast/Fungi Urine Many /hpf
[2020-08-22] MEDS ORDERED: Norco 5-325 Ta1 EACH PO (15:51)
[2020-08-22] MEDS ORDERED: DISU250 PO (15:51)
[2020-08-22] MEDS ORDERED: CYCLOBENZAPRINE5 MG PO (15:53)
[2020-08-22 16:56] LABS: Glucose, Blood 731 mg/dL (70-99)
--- NOTE | 2020-08-22 17:54 | NUR ---
PT ARRIVES TO UNIT DROWSY, ASKING FOR SOMETHING TO EAT. PT FALLS BACK TO SLEEP EASILY. PT BEGINS TO HAVE TREMORS IN THE LEFT UPPER EXTREMITY, MOANS OUT IN PAIN. C/O PAIN IN HER HEAD. ORDER RECEIVED FOR MOTRIN. SISTER JUST ARRIVED, STATES THAT SHE HAS BEEN TRYING HER BEST TO TAKE CARE OF HER SISTER, BUT SHE IS NOT EQUIPPED OR QUALIFIED. ASKED ABOUT THE INSULIN THAT THE PATIENT HAS BEEN GIVEN, SISTER JAZIEL STATES THAT SHE DOESN'T HAVE IT ORDERED, BUT SHE HAD SOME AT THE HOUSE THAT WASN'T SO SHE GAVE IT TO HER. SHE SAID THAT HER SUGARS HAVE BEEN CLIMBING AND SHE WAS AFRAID FOR IT TO GET TO LOW AND SHE DIDN'T UNDERSTAND IT WHEN THE MACHINE WOULD SAY IT'S TOO HIGH. SHE ALSO SAID THAT BEENA STARTED WITH THE TREMORS LAST WEEK, WAS TRYING TO GET HER SEEN BY THE PROVIDERS DOWN THERE IN [place], WAS TAKING HER IN TODAY BUT HER LEVEL OF CONSCIOUSNESS WAS ALTERED SO CALLED 911. SISTER ALSO STATES THAT THEY DO NOT HAVE A VEHICLE, SO IT MAKES IT DIFFICULT TO TAKE HER TO APPOINTMENTS. SHE SAID THAT BEENA WAS USING THE WALKER AT THE HOUSE BUT IT HAS GOTTEN WORSE LATELY WHERE JAZIEL IS HAVING TO TAKE HER TO THE BATHROOM AND HELP HER POSITION. BEENA CRIES OUT THAT SHE IS HUNGRY. THEN RETURNS TO SLEEP.
[2020-08-22 17:56] LABS: U Amphetamine Screen DETECTED; U Barbituate Screen Not Detected; U Benzodiazapine Screen Not Detected; U Buprenorphine Screen Not Detected; U Cannabinoids Screen Not Detected; U Cocaine Screen Not Detected; U Methadone Screen Not Detected; U Methamphetamine Screen DETECTED; U Opiates Screen Not Detected; U Oxycodone Screen Not Detected; U Phencyclidine Screen Not Detected; U Propoxyphene Screen Not Detected
[2020-08-22 17:56] LABS: Bun/Creatinine Ratio 22.6 (12.0-20.0); Calcium, Blood 8.7 mg/dL (8.5-10.1); Creatinine, Blood 1.55 mg/dL (0.40-1.00); Potassium, Blood 4.1 mmol/L (3.5-5.5)
[2020-08-22 21:28] LABS: Glucose, Blood 594 mg/dL (70-99)
[2020-08-22 22:26] LABS: Glucose, Blood 543 mg/dL (70-99)
[2020-08-23 00:47] LABS: Bun/Creatinine Ratio 25.2 (12.0-20.0); Calcium, Blood 8.3 mg/dL (8.5-10.1); Creatinine, Blood 1.23 mg/dL (0.40-1.00); Potassium, Blood 3.7 mmol/L (3.5-5.5)
[2020-08-23 02:27] LABS: Glucose, Blood 439 mg/dL (70-99)
--- NOTE | 2020-08-23 04:23 | NUR ---
PT HAS BEEN SLEEPING THROUGHOUT MOST OF THE NIGHT. PT AWAKENS FOR BRIEF PERIODS, TEARFUL, REPORTING SHE IS "HUNGRY." EDUCATED PT ON MONITORING OF HIGH BLOOD SUGARS, AND PT NPO STATUS. PT HAS HAD OCCASIONAL CENTRAL TREMORS, BROUGHT THIS TO THE ATTENTION OF DWAIN BALLESTEROS AND SHE WITNESSED HER CENTRAL TREMORS. PT AWOKE FROM CENTRAL TREMOR, AND WAS ALERT AND ORIENTED. PT REPORTS HER LEFT ARM FEELS NUMB, HOWEVER WHEN I PALPATE ALL OVER HER ARM SHE REPORTS SHE HAS SENSATION THROUGHOUT. L ARM RADIAL PULSE PRESENT. CALL LIGHT WITHIN REACH. BED IN LOW POSITION.
--- NOTE | 2020-08-23 04:50 | NUR ---
I ASKED PT IF SHE COULD LIFT HER ARMS UP - PT IS ABLE TO LIFT HER RIGHT ARM UP WNL - PT IS ABLE TO LIFT HER LEFT ARM UP APPX 6 INCHES AND THEN DEVELOPED A TREMOR. REVIEWED WITH BRIE BALLESTEROS - SHE RECOMMENDED CALLING DR. MCDONOUGH. REVIEWED WITH DR. MCDONOUGH- DR. RUBIO NOTES ON NEURO STATUS, EXTREMITY STATUS, CT SCAN RESULTS, AND CENTRAL TREMORS - AND MEDICATED WITH FLEXERIL WITH RELIEF OF CENTRAL TREMORS, AND PT'S ABILITY TO LIFT HER RIGHT ARM (WNL), AND ABLE TO LIFT HER LEFT ARM UP 6 INCHES AND THEN TREMORS OCCURRED. DR. MCDONOUGH REQUESTED DR. RUBIO TO SEE PT THIS AM - SHE REPORTED HE WILL COME ON SERVICE AT 0600 TODAY. WILL FOLLOW UP WITH DR. RUBIO THIS AM. REVIEWED TELEPHONE CALL WITH DWAIN BALLESTEROS.
[2020-08-23 05:09] LABS: BASOPHILS ABSOLUTE AUTO 0.03 K/mm3 (0.00-0.23); BASOPHILS PERCENT AUTO 1 % (0-2)
[2020-08-23 05:27] LABS: Magnesium, Blood 1.8 mg/dL (1.6-2.4)
[2020-08-23 05:28] LABS: Bun/Creatinine Ratio 22.9 (12.0-20.0); Calcium, Blood 8.4 mg/dL (8.5-10.1); Creatinine, Blood 1.18 mg/dL (0.40-1.00); Phosphorus, Blood 3.3 mg/dL (2.5-4.9); Potassium, Blood 3.6 mmol/L (3.5-5.5)
[2020-08-23 05:34] LABS: EOSINOPHILS ABSOLUTE AUTO 0.18 K/mm3 (0.00-0.68); EOSINOPHILS PERCENT AUTO 3 % (0-6); Hematocrit 26.6 % (33.0-51.0); IMMATURE GRAN ABSOLUTE AUTO 0.01 K/mm3 (0.00-0.10); IMMATURE GRAN PERCENT AUTO 0 % (0-1); LYMPHOCYTES ABSOLUTE AUTO 3.28 K/mm3 (0.84-5.20); LYMPHOCYTES PERCENT AUTO 55 % (21-46); MONOCYTES ABSOLUTE AUTO 0.39 K/mm3 (0.16-1.47); MONOCYTES PERCENT AUTO 7 % (4-13); Mean Corpuscular HGB 31.6 pg (26.0-34.0); Mean Corpuscular HGB Conc 37.2 g/dL (31.5-36.5); Mean Corpuscular Volume 85 fL (80-100); Mean Platelet Volume 12.1 fL (9.1-12.4); NEUTROPHILS ABSOLUTE AUTO 2.08 K/mm3 (1.96-9.15); NEUTROPHILS PERCENT AUTO 35 % (41-73); Platelet Count 191 K/mm3 (150-400); RDW Coefficient Variation 12.7 % (11.7-14.2); RDW Standard Deviation 38.8 fL (35.1-46.3); Red Blood Cell Count 3.13 M/mm3 (3.80-5.20); White Blood Cell Count 5.97 K/mm3 (4.00-11.30)
--- NOTE | 2020-08-23 05:45 | NUR ---
DR. MCDONOUGH HERE TO SEE PT. PT'S LEFT ARM FLACCID. DR. MCDONOUGH ORDERED STAT HEAD CT WITHOUT CONTRAST.
[2020-08-23 05:46] LABS: Hemoglobin 9.9 g/dL (11.5-16.0)
--- NOTE | 2020-08-23 05:53 | NUR ---
PT TO CT SCAN, MONITOR IN PLACE, RN AND ELECTRONICS ENGINEER WITH PT.
--- NOTE | 2020-08-23 06:05 | NUR ---
PT BACK TO ROOM. BRIE BALLESTEROS AND SELF IN WITH PATIENT - PT RAISING HER LEFT ARM UP APPX 6 INCHES, AND WAS ABLE TO MOVE HER ARM ONCE HER ARM WAS PLACED BACK ON THE BED. THEN THE NEXT STATEMENT WAS "NOW I CAN'T MOVE MY ARM." CALL LIGHT WITHIN REACH. BED IN LOW POSITION.
--- NOTE | 2020-08-23 06:20 | NUR ---
DR. MCDONOUGH CALLED REQUESTING DR. RUBIO BE CONTACTED REGARDING CT/LEFT ARM FLACCID. I CONTACTED DR. RUBIO, AND UPDATED HIM ON THE CT RESULTS FROM THIS AM - NO ACUTE INTRACRANIAL ABNORMALITY. I ALSO UPDATED HIM ON PT'S ARM BEING FLACCID, AND THEN LEFT ARM MOVEMENT POST CT ( PER LAST NN POST CT). DR. RUBIO ORDERED AN MRI HEAD FOR THIS AM. ALSO REVIEWED PLATELETS, AND TOXICOLOGY RESULTS PER REQUEST OF DR. RUBIO. WILL CONTINUE TO MONITOR UNTIL AM SHIFT REPORT.
--- NOTE | 2020-08-23 06:50 | NUR ---
REPORT GIVEN TO BRIE MARINA. DR. RUBIO CALLED BACK AND ORDERED A STAT CT ANGIO OF HEAD/NECK. ALSO REPORTED TO LAINA THAT DR. RUBIO ASKED FOR A NEURO CHECK WITHIN 1 HOUR.
--- NOTE | 2020-08-23 07:49 | NUR ---
ASSUMPTION OF CARE PT SLEEPING UPON ENTERING THE ROOM. STAT CTA OF THE HEAD/NECK ORDERED THIS MORNING TO RULE OUT ANY NEURO ISSUES. PT EASILY AROUSABLE AND A&O X4. PT IS DROWSY BUT COOPERATIVE AND ABLE TO FOLLOW DIRECTIONS. SHE EXPERIENCED WHAT APPEARED TO BE SPASMS IN THE LEFT ARM AND NECK. DURING THE SPASM SHE STATED SHE IS FRUSTRATED WITH HOW OFTEN SHE HAS THESE SPASMS AND HOW PAINFUL THEY ARE, THE SPASMS HAVE BEEN PRESENT X1 WK, SHE IS UNSURE OF CAUSE OF ONSET. SHE IS ABLE TO MOVE HER RIGHT ARM, BUT NOT LEFT. SHE STATED SHE WAS VERY HUNGRY, BUT IS CURRENTLY NPO. SHE HAS 20G. PERIPHERAL IN HER JAYLIN, AND 20G IN THE RFA, WITH THE RIGHT INFUSING LR AT 100/HR. NSR, HR IN 90S. LUNG SOUNDS CLEAR IN UPPERS AND DIM IN BASES. SATS IN 90S ON RA. TEMP NOBLE DRAINING TO GRAVITY. WILL CONTINUE TO MONITOR.
--- NOTE | 2020-08-23 09:00 | NUR ---
SPOKE WITH DR. RUBIO IN UNIT ABOUT PT'S SYMPTOMS AND PT STATES THIS HAS BEEN HAPPENING FOR ABOUT A WEEK. UNABLE TO LIFT L ARM. SPASMS IN L ARM AND NECK. PT WAS TAKEN TO MRI AND CTA THIS AM AND AWAITING RESULTS.
--- NOTE | 2020-08-23 12:00 | NUR ---
FOUND DR. RUBIO AND SPOKE TO IN PERSON TO REVIEW MRI AND CTA RESULTS. NO NEW ORDERS REGARDING THESE TESTS. CONTINUES TO HAVE EPISODES OF SPASMS OF L ARM AND NECK. PT REMAIN CONSCIOUS DURING EPISODES. ALMOST SEIZURE LIKE BUT PT IS NOT POST ICTAL.
--- NOTE | 2020-08-23 16:02 | NUR ---
ADMIT:08/22/20 DISCHARGE: DX: Altered mental Status CC: kwilcox NEELIMA CALL: RESIDENCE: Home with family CAREGIVER: Saray Mitchell, Family Member, Jessie Quiles, Family Member, Ej Piedra, Child, DX: chronic pancreatitis, HTN, GERD, poly substance abuse, see list DME: shower chair, adult pull ups, cane, DM supplies CCM: none HOME HEALTH: [facility]- active SUMMARY: Admit: 08/22/20 08/23/20- per chart review, pt was found unresponsive in her home by family and she has been bed bound. When she came in her BG was in 900's with postive for ETOH abuse and postive drug screen for Meth and Amp. Pt admitting to using 3-4 days ago. This will create issue for any future placements for care. MRI was done and found to have microinfarcts. This could be the cause of her upper extremity problems. PT was ordered and is recommending pt go home with HH once medically stable and OT was ordered and they are recommending placement once medically stable.-lenora
--- NOTE | 2020-08-23 17:15 | NUR ---
WENT AND FOUND DR. RUBIO AGAIN ABOUT BP INCREASING AND PT CONTINUES TO HAVE SPASMS OF L SIDE. DR. RUBIO STATES HE SAW THESE EPISODES. ASKED FOR NEURO CONSULT. CALLED DR. PATEL ON HIS CELL PHONE FOR CONSULT AND LET HIM KNOW PT'S SYMPTOMS AND MRI RESULTS.
--- NOTE | 2020-08-23 18:32 | NUR ---
SHIFT SUMMARY PT HAD CTA AND MRI OF HEAD AND NECK STAT FIRST THING THIS MORNING. RESULTS RELAYED TO DR RUBIO, NO NEW ORDERS. PT CONTINUES WITH NECK AND ARM SPASMS THAT SEEM TO HAVE INCREASED IN FREQUENCY AND DURATION. DEPENDING ON SEVERITY PT IS ABLE TO VERBALIZE PAIN AND DISCOMFORT DURING EPISODE, BUT OCCASIONALLY IS NOT ABLE TO SPEAK DUE TO INCREASED PAIN. LEFT LEG IS NOT INVOLVED IN SPASMS, PT IS ABLE TO MOVE ALL EXTREMITIES EXCEPT THE LEFT ARM. PT HAS REMAINED A&P X4 THROUGHOUT SHIFT, IS PLEASANT AND COOPERATIVE. SHE HAS REQUESTED FREQUENT SNACKS AND BROTH THROUGHOUT THE DAY. PT HAS HAD 4 BOWEL MOVEMENTS THAT ARE SOFT AND LOOSE. NOBLE DRAINING TO GRAVITY WITH CLEAR, YELLOW URINE OUTPUT. LUNG SOUNDS CLEAR THROUGHOUT, SATS REMAIN >92% ON RA. HR IN 90-100S. BP'S ELEVATED IN 160-170/90-100S. PRN HYDRALAZINE ORDERED BY DR RUBIO. NEUROLOGY WAS CONSULTED FOR RIGHT SEGMENTED VERTEBRAL ARTERY DISSECTION, NURSE INITIATED CONTACT. PT CURRENTLY RESTING, CONTINUES TO HAVE EPISODES OF LEFT NECK/ARM SPASMS EVEN AT REST.
--- NOTE | 2020-08-23 18:59 | NUR ---
CALLED DR. RUBIO TO COME SEE PT AGAIN. SPOKE WITH HIM ABOUT PERSISTANT SYMPTOMS OF L ARM AND NECK SPASMS AND FREQUENCY/DURATION. SINCE PT HAS HAD THESE SYMPTOMS FOR A WEEK HE BELIEVES IT IS NOT ACUTE. DID ORDER AN EEG AND MANAGER SURGERY WAS CONTACTED BY ELECTRIC SHOVEL OPERATOR. DR. PATEL HERE TO SEE PT NOW.
--- NOTE | 2020-08-24 00:33 | NUR ---
AMANDA 1914 - DR PATEL TO ROOM TO ASSESS PT. RELAYED TO PT THAT SHE HAD HAD A STROKE PER IMAGING. DISCUSSED CURRENT SX'S OF L ARM FLACCIDITY AND SEIURE LIKE MOTIONS. AMANDA WITNESSED EVENT WITH THIS RN. STATES PT IS HAVING PARTIAL SEIZURES TO THIS ARM. DISCUSSED TX OPTIONS WITH PT. ORDERS RECEIVED AND ADMINISTERED.
--- NOTE | 2020-08-24 00:35 | NUR ---
PROVIDER CEASAR 0000 DR WOOD CALLED REGARDING PT'S CONTINUES PARTIAL SEIZURES AND RELAYED TO HER THE EXTREME PAIN PT WAS EXPERIENCING WITH THESE EVENTS. TALKED ABOUT THE FACT PT WAS HAVING 2-5 EVERY HOUR. IV ATIVAN ORDER TO BE PLACED BY PHYSICIAN.
--- NOTE | 2020-08-24 05:15 | NUR ---
SHIFT SUMMARY SEE PRIOR PROVIDER NOTES THIS SHIFT. PT AXO T/O WHOLE SHIFT. HAS BEEN STATED, PT CONTINUES WITH L ARM FLACCIDITY OR SEVERE FLEXION/EXTENSION OF L ARM WITH TREMORS AND HEAD/NECK INVOLVEMENT BEING PULLED TO THE LEFT SIDE. IV KEPPRA INFUSED AND ATIVAN IV HAS BEEN INITIATED, INCIDENCE OF THESE EPISODES SEEMS TO HAVE DECREASED POST ATIVAN ADMINISTRATIONS BUT STILL FREQUENTLY HAPPEN. BP'S HAVE DECREASED FROM >160 SBP DOWN INTO THE 130'S. NOBLE REMAINS IN PLACE AT THIS TIME. PT HAD ONE SMALL BM THIS SHIFT. REQUESTING LOTS OF SNACKS. CONSULT FOR EEG PLCED AT BEGINNING OF SHIFT, DR MCCULLOUGH STATES THIS WILL NOT AFFECT HIS CURRENT PLAN OF TREATMENT THOUGH. OTHERWISE, PT RESTING IN BETWEEN EPISODES, PT MEDICATED FOR PARTIAL SEIZURES, HTN, AND ANXIETY MULTIPLE TIMES THIS SHIFT. WILL CONTINUE TO MONITOR UNTIL SHIFT CHANGE.
--- NOTE | 2020-08-24 08:00 | NUR ---
ASSUMED CARE 0730 PT RESTING COMFORTABLY IN BED. SPASTIC MOVEMENTS TO L ARM/NECK. L ARM GOES FLACCID AFTER A SHORT WHILE. R ARM AND BLE EXTREMITIES WEAK THOUGH ABLE TO MOVE AND SQUEEZE HANDS. AROUSABLE THOUGH QUICKLY FALLS BACK ASLEEP. ANSWERS QUESTIONS APPROPRIATELY THOGUH SLOW TO RESPOND. CAN FEEL PIN PRICKS TO L ARM/MAYO THOUGH CANNOT MOVE W/O NURSE ASSISTANCE OR USING R ARM TO ASSIST. NOBLE CATH PATENT AND DRAINING CLEAR YELLOW URINE TO GRAVITY. IV TO RAC SALINE LOCKED. VS STABLE. WILL CONTINUE TO MONITOR.
[2020-08-24 09:58] LABS: CHOL/HDL RATIO 3.5; Cholesterol 131 mg/dL (50-200); HDL Cholesterol 37 mg/dL (>39); LDL/HDL RATIO 0.5; Low Density Lipoprotein Chol 17 mg/dL (0-110); Triglycerides 383 mg/dL (30-160); Very Low Density Lipoprot Chol 76 mg/dL (6-32)
--- NOTE | 2020-08-24 15:30 | NUR ---
DR PATEL AT BEDSIDE. ABLE TO AROUSE AND ASSESS PATIENT. DISCUSSED HAVING EEG DONE ON 08/26.
--- NOTE | 2020-08-24 18:21 | NUR ---
SHIFT SUMMARY PT RESTING IN BED COMFORTABLY. AROUSABLE THOUGH DROWSY AND FALLS BACK ASLEEP EASILY. STILL HAVING SPASTICITY THROUGHOUT THE DAY TO L ARM/NECK, L ARM REMAINS FLACCID. STARTED ON KEPPRA THIS AM WITH GOOD RESPONSE THROUGHOUT THE DAY. GOOD APPETITE. NOBLE CATH PATENT AND DRAINING TO GRAVITY. IV TO RAC SALINE LOCKED AT THIS TIME. VS STABLE. WILL CONTINUE TO MONITOR.
--- NOTE | 2020-08-24 18:27 | NUR ---
DOCUMENTATION REVIEW ALL ASSESSMENTS AND NOTES FROM THIS SHIFT REVIEWED. I AGREE WITH IT BUSINESS PROCESS ARCHITECT DOCUMENTATION FROM THIS SHIFT.
--- NOTE | 2020-08-24 20:00 | NUR ---
ASSSUMED CARE OF PATIENT AT [facility] 1899 FROM TONIO Diaz RN AND SUPERVISOR MOLD CONSTRUCTION JESUS Farrell PATIENT SLEEPING IN BED DURING BEDSIDE REPORT. PATIENT WOKE UP AROUND 1919 TO REPORT SHE WAS HUNGRY FOR DINNER; DINNER TRAY GIVEN; SOME ASSISTANCE NEEDED OPENING FOOD. 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 PATIENT HAS WEAKNESS IN LEFT LEG. PATIENT WAKES TO VERBAL STIMULUS. PATIENT ALERT AND ORIENTED X4. PATIENT DENIES PAIN, DIZZINESS OR NAUSEA. PATIENT HAD ONE SEIZURE AT [facility] 1929 FOR ABOUT 20 SECONDS; ALERT AND ORIENTED AFTER. VSS. MEDICAL TELE STATUS. SR/ST ON HEART MONITOR; OXYGEN SATURATION ABOVE 90% ON ROOM AIR. PIV S/L.
[2020-08-25 05:05] LABS: Anion Gap 6 mmol/L (6-16); Blood Urea Nitrogen 22 mg/dL (8-24); Bun/Creatinine Ratio 26.3 (12.0-20.0); CO2, Blood 23 mmol/L (21-32); Calcium, Blood 8.6 mg/dL (8.5-10.1); Chloride, Blood 99 mmol/L (98-108); Creatinine, Blood 0.84 mg/dL (0.40-1.00); Glomerular Filtration Rate >60 (60-); Glucose, Blood 460 mg/dL (70-99); Potassium, Blood 5.2 mmol/L (3.5-5.5); Sodium, Blood 128 mmol/L (136-145)
--- NOTE | 2020-08-25 06:29 | NUR ---
AM LAB CBG 460; CALLED DR. MCDONOUGH AT [facility] 0610; ORDERS TO CALL EF; PLACED CALLED TO [facility] AT 0615; TALKED TO DR. RUBIO; ORDERS TO CHANGE INSULIN FORM AC/HS TO Q6 AND GIVE 0600 DOSE NOW BUT NO ADDITIONAL INSULIN BECAUSE OF CONCERN OF BLOOD SUGAR DROPPING TOO MUCH.
--- NOTE | 2020-08-25 06:31 | NUR ---
PATIENT SLEPT ABOUT SEVEN HOURS LAST NIGHT. PATIENT HAD ABOUT TEN SEIZURE EPISODES; GIVEN IV ATIVAN ONCE. PATIENT UP TO BEDSIDE COMMODE FOR BM AND HAD A SEIZURE. REPORT PAIN IN RIGHT HIP; MEDICATED PER EMAR. PATIENT CALLED TO REQUEST FREQUENT SNACKS AND DRINKS T/O NIGHT; EDUATED ON BLOOD SUGAR CONTROL; PATIENT DID NOT APPEAR INTERESTED.
--- NOTE | 2020-08-25 07:43 | NUR ---
AM NOTE... ASSUMED CARE OF PT AT 0700, PT IS A&Ox4 BUT VERY SLEEPY, PT WAKES TO LOUD VERBAL STIMULI BUT FALLS BACK ASLEEP QUICKLY. PT HAS HAD 1 PARTIAL SEIZURE THAT THIS RN WITNESSED THAT LASTED APROX 40-50 SECONDS. PT'S LEFT ARM CONTINUES TO BE FLACCID, PT'S LEFT LEG IS WEAKER THAN THE RIGHT LEG BUT PT IS ABLE TO MOVE IT AROUND THE BED. PT'S BP STABLE, PT IS IN NSR IN THE 80'S-90'S. NO EDEMA NOTED ON ASSESSMENT. PT IS ON RA WITH O2 SATS >90% L/S CLEAR T/O DIM IN THE BASES. BT PRESENT AND HYPERACTIVE, ABD IS SOFT AND NONTENDER TO PALP. PT'S NOBLE IS PATENT AND DRAINING CLEAR YELLOW URINE TO GRAVITY. CALL LIGHT IN REACH WILL CONTINUE TO MONITOR.
--- NOTE | 2020-08-25 19:30 | NUR ---
SHIFT SUMMARY... NO ACUTE NEGATIVE CHANGES NOTED THIS SHIFT. PT'S VS HAVE BEEN STABLE. PT HAS ONLY HAD 3 WITNESSED SEIZURES THIS SHIFT. PT GOT UP TO THE CHAIR WITH 1P ASSIST FOR LUNCH AND DINNER. PT'S NOBLE PATENT AND DRAINING TO GRAVITY. WILL CONTINUE TO MONTIOR UNTIL REPORT IS GIVEN TO ONCOMNIG BRIE.
[2020-08-26 01:47] LABS: Anion Gap 11 mmol/L (6-16); Blood Urea Nitrogen 26 mg/dL (8-24); Bun/Creatinine Ratio 30.7 (12.0-20.0); CO2, Blood 24 mmol/L (21-32); Calcium, Blood 8.4 mg/dL (8.5-10.1); Chloride, Blood 95 mmol/L (98-108); Creatinine, Blood 0.85 mg/dL (0.40-1.00); Glomerular Filtration Rate >60 (60-); Glucose, Blood 447 mg/dL (70-99); Potassium, Blood 4.2 mmol/L (3.5-5.5); Sodium, Blood 130 mmol/L (136-145)
[2020-08-26 02:03] LABS: Albumin, Blood 2.9 g/dL (3.4-5.0); Phosphorus, Blood 3.1 mg/dL (2.5-4.9)
--- NOTE | 2020-08-26 05:03 | NUR ---
PT UPDATE PT HAD ELEVATED BLOOD GLUCOSE OF 394 AT MIDNIGHT CHECK. 15 UNITS OF HUMALIN R GIVEN PER EMAR AND CALL PLACED TO MD MCDONOUGH W/ ORDERS TO RECHECK IN ONE HOUR. BLOOD GLUCOSE CHECKED ONE HOUR LATER WITH A RESULT OF >500. CALL PLACED TO MD MCDONOUGH. MD MCDONOUGH W/ ORDERS FOR 15 ADDITIONAL UNITS OF HUMALIN R AND A 500ML BOLUS, RECHECK IN 2 HOURS. BLOOD GLUCOSE CHECKED THIS AM RESULTING IN :245
--- NOTE | 2020-08-26 06:36 | NUR ---
SHIFT SUMMARY PT A&OX4. PT HAD MULTIPLE SEIZURE ACTIVITY THIS SHIFT. PT LEFT SIDE/ARM WOULD TENSE UP AND SHAKE, PT MOANS DURING THIS. PT GIVEN FLEXERIL X1 FOR MUSCLE SPASMS. SP02>92% ON RA. TELEMETRY READS SR, HR 80'S-90'S. NOBLE CATHETER DRAINING CLEAR YELLOW URINE TO GRAVITY. PT UP TO BSC X3 TO HAVE BMS THIS SHIFT, WELL ONE INCONTINENT BM AND ONE BM IN BEDPAN. PT C/O OF ANXIETY MULTIPLE TIMES DURING THIS SHIFT, APPEARED AGITATED, CRYING, CALLING OUT. ATERAX GIVEN X1 THIS SHIFT PER EMAR WITHOUT RELIEF. ATIVAN GIVEN X1 THIS SHIFT PER EMAR. PT HAD HIGH CBG THIS SHIFT, SEE PREVIOUS NOTE. PT MOST RECENT CBG WAS LOW: 60. PT GIVEN JUICE/SNACK. WILL RECHECK BLOOD SUGAR. PT REPOSITIONS SELF. CALL LIGHT IN [facility]. WILL GIVE REPORT TO ONCOMING NURSE.
--- NOTE | 2020-08-26 09:29 | NUR ---
AM NOTE... ASSUMED CARE OF PT AT 0700. PT IS A&Ox4. PT HAS NOT HAD ANY SEIZURE ACTIVITY SINCE THE START OF THIS SHIFT SO FAR. PT WAS UP IN THE CHAIR FOR BREAKFAST THIS AM. PT'S VS STABLE. L/S CLEAR T/O ON RA. FOELY PATENT AND DRAINING TO GRAVITY. PT IS TO HAVE AN EEG TODAY. WILL CONTINUE TO MONITOR.
--- NOTE | 2020-08-26 11:07 | NUR ---
PT UPDATE... [facility] COORDINATOR IN THE ROOM. PT UP TO THE CHAIR FOR THE EEG. VS STABLE.
--- NOTE | 2020-08-26 13:06 | NUR ---
08/26/20- PER CHART REVIEW WITH DR. MARTINEZ, PT IS IMPROVING BUT WILL STILL NEED TO BE IN THE HOSPITAL FOR 2-3 MORE DAY. SHE WILL BE MOVED OUT OF THE ICU TODAY. WILL NEED TO LOOK INTO SNF PLACEMENT. -ROXANNE
[2020-08-26 14:36] LABS: Glucose, Blood 541 mg/dL (70-99)
--- NOTE | 2020-08-26 15:40 | NUR ---
PT UPDATE... PT HAS HAD APROX 3 SEIZURES THIS AFTERNOON ONE WITNESSED BY THIS RN AT 1530. PT'S AFTERNOON CBG WAS "HI", LAB DRAW WAS DONE AND SHOWED HER GLUCOSE TO BE 541. DR. MARTINEZ WAS CALLED NEW ORDERS FOR A ONE TIME DOSE OF 15 UNITS OF REGULAR INSULIN. NEW ORDERS FOR NPH AND HUMALOG WERE PLACED BY DR. MARTINEZ WELL. PT HAS AN APPARENT INTOLERANCE FOR LANTUS. PT IS TO TRANSFER TO MEDICAL FLOOR. REPORT CALLED TO MED FLOOR RN DARREL Wright
[2020-08-26 18:07] LABS: Glucose, Blood 548 mg/dL (70-99)
--- NOTE | 2020-08-26 19:59 | NUR ---
PT TX FROM ICU 10 AT 1800 IN W/C SBA PIVOT TX TO BED. PT ORIENTED TO ROOM SET UP AND SAFETY. PT ASSESSED. NEURO WITH L ARM FLACIDITY. PUPILS SLUGGISH 4MM REACTIVE. PT IS EMOTIONAL AND CRYING BECAUSE SHE CANT USE L SIDE AND HAVING PAIN IN L ARM. LUNGS CTA. NEUROPATHY IN LEGS AND ARMS. SET UP FOR DINNER.
--- NOTE | 2020-08-26 20:02 | NUR ---
SUMMARY- PT ARRIVED TO [facility] FROM ICU 10 AT 1800. ORIENTED TO ROOM SET UP AND SAFETY. PT HAD 2 PARTIAL SIEZURES AT 1815 AND 1945 IN THE PRESENCE OF DR CULP AT BEDSIDE. MEDICATED WITH ATIVAN IV AT 1830 AFTER PARTIAL SIEZURE, PRESENTED WITH CLONUS OF L ARM AND NECK AND MOANING FOR ABOUT 1 MINUTE AND CRYING AFTERWARDS. RECEIVED NEW ORDERS FOR KEPPRA AND GABAPENTIN FROM DR CULP. REPORT TO NOC BRIE.
[2020-08-27 05:17] LABS: BASOPHILS ABSOLUTE AUTO 0.03 K/mm3 (0.00-0.23); BASOPHILS PERCENT AUTO 0 % (0-2); EOSINOPHILS ABSOLUTE AUTO 0.13 K/mm3 (0.00-0.68); EOSINOPHILS PERCENT AUTO 2 % (0-6); Hematocrit 27.7 % (33.0-51.0); Hemoglobin 9.6 g/dL (11.5-16.0); IMMATURE GRAN ABSOLUTE AUTO 0.03 K/mm3 (0.00-0.10); IMMATURE GRAN PERCENT AUTO 0 % (0-1); LYMPHOCYTES ABSOLUTE AUTO 2.93 K/mm3 (0.84-5.20); LYMPHOCYTES PERCENT AUTO 42 % (21-46); MONOCYTES ABSOLUTE AUTO 0.46 K/mm3 (0.16-1.47); MONOCYTES PERCENT AUTO 7 % (4-13); Mean Corpuscular HGB 31.8 pg (26.0-34.0); Mean Corpuscular HGB Conc 34.7 g/dL (31.5-36.5); Mean Corpuscular Volume 92 fL (80-100); Mean Platelet Volume 11.9 fL (9.1-12.4); NEUTROPHILS ABSOLUTE AUTO 3.46 K/mm3 (1.96-9.15); NEUTROPHILS PERCENT AUTO 49 % (41-73); Platelet Count 160 K/mm3 (150-400); RDW Coefficient Variation 13.1 % (11.7-14.2); RDW Standard Deviation 43.8 fL (35.1-46.3); Red Blood Cell Count 3.02 M/mm3 (3.80-5.20); White Blood Cell Count 7.04 K/mm3 (4.00-11.30)
[2020-08-27 05:37] LABS: Anion Gap 6 mmol/L (6-16); Blood Urea Nitrogen 28 mg/dL (8-24); Bun/Creatinine Ratio 28.8 (12.0-20.0); CO2, Blood 23 mmol/L (21-32); Calcium, Blood 8.2 mg/dL (8.5-10.1); Chloride, Blood 102 mmol/L (98-108); Creatinine, Blood 0.97 mg/dL (0.40-1.00); Glomerular Filtration Rate >60 (60-); Glucose, Blood 251 mg/dL (70-99); Potassium, Blood 4.9 mmol/L (3.5-5.5); Sodium, Blood 131 mmol/L (136-145)
--- NOTE | 2020-08-27 06:07 | NUR ---
SHIFT SUMMARY ALERT, ABLE TO MAKE NEEDS KNOWN. COOPERATIVE WITH CARE. ANSWERS QUESTIONS APPROPRIATELY. NO C/O PAIN/DISCOMFORT. NOTED 3 EPISODES OF SEIZURE ACTIVITY WITHOUT POST ICTAL PHASE. NOTED TO CALL OUT AND WHEN ASKED ABOUT WHAT WAS WRONG; STATED MUSCLES IN ABDOMEN FELT LIKE THEY WERE RIPPING APART. THIS WAS AFTER SHE STATED SHE NEEDED TO USE THE RESTROOM. 2 SMALL BMs. NOBLE SECURED AND DRAINING TO GRAVITY. APPEARED TO REST MUCH OF THE NIGHT. NO ACUTE CHANGES NOTED OVERNIGHT. BED REMAINS IN LOWEST POSITION; ALARM ON. CALL LIGHT AND BELONGINGS WITHIN REACH. CONTINUE WITH CURRENT PLAN OF CARE. REPORT TO ONCOMING RN.
--- NOTE | 2020-08-27 16:09 | NUR ---
08/27/20- per chart review with Dr. Levine, pt is improving and could potentially be d/c home on Wed or . Pt has had CVA and a couple seizures but overall is improving. She has been working with PT and OT. Neuro has been consulting on pt. -lenora
--- NOTE | 2020-08-27 18:04 | NUR ---
SHIFT SUMMARY PT SLEEPING WELL AT START OF SHIFT. WOKE LATER BY DR MARTINEZ. AIDE BARNES AND TELE MX TO BE D/C'D SO PT COULD WORK WELL WITH PT/OT TODAY. ADIE BARNES D/C'D; PT UP VOIDING W/O DIFFICULTY. PT UP TO BSC WITH SBA AND LATER TO SHOWER. PT BACK TO BED AFTER SHOWER. LATER REQUESTED PAIN MED FOR R HIP PAIN. PT REPORTED IT EFFECTIVE. PT THEN WANTING TO GET UP TO CHAIR AT , HAS REMAINDED IN CHAIR TO PRESENT. CURRENTLY EATING DINNER IN CHAIR. NO C/O. PT USING LUE SOME TODAY, WORKING WITH THERAPY TO INCREASE USE. PT REPORTED IT BEING FLACCID YESTERDAY R/T STROKE. CBG'S ELEVATED; SEE CHART. PT IS NONCOMPLIANT DIABETIC. DIFFICULT TO EDUCATE. CALL LT IN REACH. ABLE TO MAKE NEEDS KNOWN.
--- NOTE | 2020-08-28 06:23 | NUR ---
SHIFT SUMMARY PATIENT ALERT AND ORIENTED. WAS MEDICATED PER EMAR FOR PAIN AND ANXIETY. NO COMPLAINTS OF SHORTNESS OF BREATH. PATIENT DID NOT SLEEP MUCH. NO ACUTE ISSUES NOTED. IV PATENT AND FLUSHED. BED IN LOWEST POSITION WITH WHEELS LOCKED AND ALARM ON. CALL LIGHT WITHIN REACH. REPORT GIVEN TO ONCOMING RN.
[2020-08-28 07:05] LABS: Hematocrit 25.9 % (33.0-51.0); Hemoglobin 8.8 g/dL (11.5-16.0); Mean Corpuscular HGB 31.5 pg (26.0-34.0); Mean Corpuscular Volume 93 fL (80-100); Mean Platelet Volume 12.3 fL (9.1-12.4); Platelet Count 179 K/mm3 (150-400); RDW Coefficient Variation 13.1 % (11.7-14.2); RDW Standard Deviation 43.9 fL (35.1-46.3); Red Blood Cell Count 2.79 M/mm3 (3.80-5.20); White Blood Cell Count 7.15 K/mm3 (4.00-11.30)
[2020-08-28 07:17] LABS: Anion Gap 5 mmol/L (6-16); Blood Urea Nitrogen 32 mg/dL (8-24); Bun/Creatinine Ratio 31.7 (12.0-20.0); CO2, Blood 24 mmol/L (21-32); Calcium, Blood 8.2 mg/dL (8.5-10.1); Chloride, Blood 103 mmol/L (98-108); Creatinine, Blood 1.01 mg/dL (0.40-1.00); Glomerular Filtration Rate >60 (60-); Glucose, Blood 172 mg/dL (70-99); Potassium, Blood 5.2 mmol/L (3.5-5.5); Sodium, Blood 132 mmol/L (136-145)
[2020-08-28 08:05] LABS: BAND PERCENT MAN 1 % (0-8); BASOPHILS PERCENT MAN 0 % (0-2); EOSINOPHILS ABSOLUTE MAN 0.14 K/mm3 (0.00-0.68); EOSINOPHILS PERCENT MAN 2 % (0-6); LYMPHOCYTES ABSOLUTE MAN 3.28 K/mm3 (0.84-5.20); LYMPHOCYTES PERCENT MAN 46 % (21-46); MONOCYTES ABSOLUTE MAN 0.35 K/mm3 (0.16-1.47); MONOCYTES PERCENT MAN 5 % (4-13); NEUTROPHILS ABSOLUTE MAN 3.36 K/mm3 (1.96-9.15); SEG NEUTROPHILS PERCENT MAN 46 % (41-73); TOTAL CELLS COUNTED 100
[2020-08-28] MEDS ORDERED: ASPI81CH PO (11:56)
[2020-08-28] MEDS ORDERED: ATOR40TA PO (11:56)
[2020-08-28] MEDS ORDERED: CLOP75 PO (11:57)
[2020-08-28] MEDS ORDERED: INSULIN LI100 UNIT/6 SC (11:58)
[2020-08-28] MEDS ORDERED: HUMULIN N100 UNIT/6 SC (11:59)
[2020-08-28] MEDS ORDERED: Keppra750 MG PO (12:00)
--- NOTE | 2020-08-28 15:18 | NUR ---
SUMMARY: Admit: 08/22/20 08/28/20- per chart review with Dr. Levine, pt is stable to discharge. Pt has expressed her willingness to seek treatment for her substance abuse. Met with pt and she states that will be going home with her sister, Ej and nephew. Pt states that the only working phone is with her sister Saray, who does not reside in the home. Pt reports that sister Saray will be coming to get her and nurse asked if this sister is the one who will be helping with her medications. Pt stated no, sister Ej helps with her medications when she can. RN requested that both sisters come to pick remover the pt so that she can go over the d/c instructions with them. Pt states that her pharmacy is [facility] in and her sisters can help her get her medications. Pt does state that she doesn't know how to or when to administer her insulin. Pt stated that she needs more insulin needles. Pt also requested a shower chair, which was ordered through [employer] to be delivered to the home. Pt states there are no stairs in the home and no concerns going home. Discussed with pt the options for substance abuse in [place]. Pt acknowledged that she is agreeable to seeking treatment. Provided pt with [facility]. Also provided her the number to do screening for [employer]. Pt acknowledged understanding and agreeable that this can be discussed with her sisters when they come to pick her up. -lenora
--- NOTE | 2020-08-28 16:34 | NUR ---
DISCHARGE SUMMARY BEENA LEFT WITH HER SISTER. VERY THOROUGH EDUCATION DONE ON DIET, INSULIN LISPRO AND INSULIN NPH, S/S HYPOGLYCEMIA AND HPYERGLYCEMIA. PIV REMOVED, MEDS FAXED TO PHARMACY, PAPERWORK REVIEWED, F/U APPT MADE WITH PCP. ANSWERED ALL QUESTIONS. LEFT BY WC TO GO HOME WITH SISTER
== END 2020-08-28 16:07 | disposition home or self-care (01) | DRG 64 ==
LOC: ER 14:24 → ICUW 14:25 → MEDS 08-26 17:49
PROVIDERS: Emergency Medicine; Family Medicine; Psychiatry & Neurology Neurology; ADMIT Internal Medicine
DX: I63.439 Cerebral infarction due to embolism of unspecified posterior cerebral artery (principal); E11.00 Type 2 diabetes mellitus with hyperosmolarity without nonketotic hyperglycemic-hyperosmolar coma (NKHHC); I77.74 Dissection of vertebral artery; G93.41 Metabolic encephalopathy; E43 Unspecified severe protein-calorie malnutrition; K86.1 Other chronic pancreatitis; E87.1 Hypo-osmolality and hyponatremia; Z68.1 Body mass index [BMI] 19.9 or less, adult; N39.0 Urinary tract infection, site not specified; E87.2 Acidosis; N17.9 Acute kidney failure, unspecified; G40.109 Localization-related (focal) (partial) symptomatic epilepsy and epileptic syndromes with simple partial seizures, not intractable, without status epilepticus; E11.42 Type 2 diabetes mellitus with diabetic polyneuropathy; E11.22 Type 2 diabetes mellitus with diabetic chronic kidney disease; N18.9 Chronic kidney disease, unspecified; D63.1 Anemia in chronic kidney disease; F41.1 Generalized anxiety disorder; I44.0 Atrioventricular block, first degree; F10.20 Alcohol dependence, uncomplicated; J44.9 Chronic obstructive pulmonary disease, unspecified; I12.9 Hypertensive chronic kidney disease with stage 1 through stage 4 chronic kidney disease, or unspecified chronic kidney disease; S72.141D Displaced intertrochanteric fracture of right femur, subsequent encounter for closed fracture with routine healing; E78.5 Hyperlipidemia, unspecified; F12.10 Cannabis abuse, uncomplicated; F15.10 Other stimulant abuse, uncomplicated; K70.9 Alcoholic liver disease, unspecified; M81.0 Age-related osteoporosis without current pathological fracture; F19.10 Other psychoactive substance abuse, uncomplicated; K21.9 Gastro-esophageal reflux disease without esophagitis; F17.210 Nicotine dependence, cigarettes, uncomplicated; Z98.51 Tubal ligation status; Z88.2 Allergy status to sulfonamides; Z88.1 Allergy status to other antibiotic agents; Z88.8 Allergy status to other drugs, medicaments and biological substances; Z79.899 Other long term (current) drug therapy; Z79.82 Long term (current) use of aspirin; Z79.02 Long term (current) use of antithrombotics/antiplatelets; Z79.4 Long term (current) use of insulin; X58.XXXD Exposure to other specified factors, subsequent encounter
CPT/HCPCS: 36415; 51702; 70450; 70496; 70498; 70551; 80048; 80053; 80061; 80069; 80177; 81001; 82140; 82803; 82947; 83735; 84100; 85025; 87086; 87106; 93005; 93010; 93306; 94760; 95819; 96365-59; 97110; 97112; 97163; 97166; 97530; 97535; 99285-25; A9270; G0378; G0480; J0360; J1650; J1815; J1953; J2060; J3480; J7040; J7120; Q9967

== ENCOUNTER 2020-10-12 19:33 | Inpatient (IN) | payer OTHER ==
[~2020-10-12] VITALS: Ht 162.6 cm; Wt 42.6 kg
[~2020-10-12 19:33] MED LIST changes: +ASPI81CH PO; +ATOR40TA PO; +CLOP75 PO; +CYCLOBENZAPRINE5 MG PO; +DISU250 PO; +HUMULIN N100 UNIT/6 SC; +INSULIN LI100 UNIT/6 SC; +Keppra750 MG PO; +Norco 5-325 Ta1 EACH PO
[2020-10-12 19:58] LABS: BASOPHILS ABSOLUTE AUTO 0.03 K/mm3 (0.00-0.23); BASOPHILS PERCENT AUTO 1 % (0-2); EOSINOPHILS ABSOLUTE AUTO 0.07 K/mm3 (0.00-0.68); EOSINOPHILS PERCENT AUTO 1 % (0-6); Hematocrit 26.5 % (33.0-51.0); Hemoglobin 9.5 g/dL (11.5-16.0); IMMATURE GRAN ABSOLUTE AUTO 0.03 K/mm3 (0.00-0.10); IMMATURE GRAN PERCENT AUTO 1 % (0-1); LYMPHOCYTES ABSOLUTE AUTO 2.12 K/mm3 (0.84-5.20); LYMPHOCYTES PERCENT AUTO 34 % (21-46); MONOCYTES ABSOLUTE AUTO 0.39 K/mm3 (0.16-1.47); MONOCYTES PERCENT AUTO 6 % (4-13); Mean Corpuscular HGB Conc 35.8 g/dL (31.5-36.5); Mean Corpuscular Volume 92 fL (80-100); Mean Platelet Volume 11.2 fL (9.1-12.4); NEUTROPHILS ABSOLUTE AUTO 3.56 K/mm3 (1.96-9.15); NEUTROPHILS PERCENT AUTO 57 % (41-73); Platelet Count 229 K/mm3 (150-400); RDW Coefficient Variation 13.2 % (11.7-14.2); RDW Standard Deviation 43.7 fL (35.1-46.3); Red Blood Cell Count 2.88 M/mm3 (3.80-5.20)
[2020-10-12 20:25] LABS: Alanine Aminotransfer (ALT/SGP 42 U/L (12-78); Albumin, Blood 2.4 g/dL (3.4-5.0); Albumin/Globulin Ratio 0.6 (0.8-1.8); Alk Phos 404 U/L (50-136); Anion Gap 7 mmol/L (6-16); Aspartate Aminotrans (AST/SGOT 30 U/L (12-37); Bilirubin, Total 0.2 mg/dL (0.1-1.0); Blood Urea Nitrogen 15 mg/dL (8-24); Bun/Creatinine Ratio 17.7 (12.0-20.0); CO2, Blood 23 mmol/L (21-32); Calcium, Blood 8.5 mg/dL (8.5-10.1); Chloride, Blood 95 mmol/L (98-108); Creatinine, Blood 0.85 mg/dL (0.40-1.00); Globulin, Blood 3.8 g/dL (2.2-4.0); Glomerular Filtration Rate >60 (60-); Glucose, Blood 683 mg/dL (70-99); Sodium, Blood 125 mmol/L (136-145); Total Protein, Blood 6.2 g/dL (6.4-8.2)
[2020-10-12 20:39] LABS: Beta-hydroxybutyrate 9.9 mg/dL (0.2-2.8)
[2020-10-12 21:47] LABS: CHOL/HDL RATIO 2.9; Cholesterol 109 mg/dL (50-200); HDL Cholesterol 37 mg/dL (>39); Low Density Lipoprotein Chol 2 mg/dL (0-110); Triglycerides 352 mg/dL (30-160); Very Low Density Lipoprot Chol 70 mg/dL (6-32)
[2020-10-12 22:13] LABS: International Normalized Ratio 0.95; Prothrombin Time Results 10.3 Sec (9.7-11.5)
[2020-10-12 22:16] LABS: Base Excess Venous -3.8 mmol/L; Bicarbonate Venous 21.2 mmol/L (24.0-30.0); PCO2 Venous 50.2 mmHg (38-42); PO2 Venous 111 mmHg (38-42); pH Blood Venous 7.27 (7.34-7.37)
[2020-10-12 23:28] LABS: U Amphetamine Screen Not Detected; U Barbituate Screen Not Detected; U Benzodiazapine Screen Not Detected; U Buprenorphine Screen Not Detected; U Cannabinoids Screen Not Detected; U Cocaine Screen Not Detected; U Methadone Screen Not Detected; U Methamphetamine Screen Not Detected; U Opiates Screen Not Detected; U Oxycodone Screen Not Detected; U Phencyclidine Screen Not Detected; U Propoxyphene Screen Not Detected
--- NOTE | 2020-10-12 23:50 | NUR ---
ADMIT PT ADMITTED TO THE FLOOR FROM THE ED. PT IS A&OX3, ON RA, RESP UNLABORED. PT C/O PAIN IN RIGHT ARM/HIP. SHE STATED SHE HAD PREVIOUSLY HAD HIP SURGERY IN JUNE. THE RIGHT HAND HAS A SMALL AMOUNT OF REDNESS NEAR THE WRIST, WARM TO TOUCH, PT STATES SHE IS UNABLE TO USE THE RIGHT ARM. PT IS HAVING WHAT APPEARS TO BE MUSCLE SPASMS THROUGH HER RIGHT ARM UP THROUGH HER NECK. BLE EQUAL IN STRENGTH. HTN NOTED. PT NABLE TO RECALL MEDICAL HX OR WHEN SHE TOOK HER MEDICATIONS LAST. SHE STATES HER SISTER "TAKES CARE OF HER PILLS". PT ORIENTED TO ROOM, CALL LIGHT IN REACH.
[2020-10-13 04:15] LABS: BASOPHILS ABSOLUTE AUTO 0.03 K/mm3 (0.00-0.23); BASOPHILS PERCENT AUTO 0 % (0-2); EOSINOPHILS ABSOLUTE AUTO 0.09 K/mm3 (0.00-0.68); EOSINOPHILS PERCENT AUTO 1 % (0-6); Hematocrit 25.8 % (33.0-51.0); Hemoglobin 9.1 g/dL (11.5-16.0); IMMATURE GRAN ABSOLUTE AUTO 0.02 K/mm3 (0.00-0.10); IMMATURE GRAN PERCENT AUTO 0 % (0-1); LYMPHOCYTES ABSOLUTE AUTO 3.34 K/mm3 (0.84-5.20); LYMPHOCYTES PERCENT AUTO 46 % (21-46); MONOCYTES ABSOLUTE AUTO 0.46 K/mm3 (0.16-1.47); MONOCYTES PERCENT AUTO 6 % (4-13); Mean Corpuscular HGB 32.4 pg (26.0-34.0); Mean Corpuscular HGB Conc 35.3 g/dL (31.5-36.5); Mean Corpuscular Volume 92 fL (80-100); Mean Platelet Volume 10.8 fL (9.1-12.4); NEUTROPHILS ABSOLUTE AUTO 3.39 K/mm3 (1.96-9.15); NEUTROPHILS PERCENT AUTO 46 % (41-73); Platelet Count 239 K/mm3 (150-400); RDW Coefficient Variation 13.3 % (11.7-14.2); RDW Standard Deviation 44.1 fL (35.1-46.3); Red Blood Cell Count 2.81 M/mm3 (3.80-5.20); White Blood Cell Count 7.33 K/mm3 (4.00-11.30)
--- NOTE | 2020-10-13 04:19 | NUR ---
GLUCOSE GLUCOSE DROPPED FROM 227 TO 87 IN A 2 HR PERIOD. PT WAS GIVEN JELLO & BROTH AT THIS TIME. SHE IS AWAKE, ALERT, ORIENTED & STATING SHE IS HUNGRY.
[2020-10-13 04:40] LABS: Anion Gap 6 mmol/L (6-16); Blood Urea Nitrogen 13 mg/dL (8-24); Bun/Creatinine Ratio 16.9 (12.0-20.0); CO2, Blood 24 mmol/L (21-32); Calcium, Blood 7.7 mg/dL (8.5-10.1); Chloride, Blood 107 mmol/L (98-108); Creatinine, Blood 0.77 mg/dL (0.40-1.00); Glomerular Filtration Rate >60 (60-); Glucose, Blood 100 mg/dL (70-99); Potassium, Blood 2.9 mmol/L (3.5-5.5)
[2020-10-13 04:41] LABS: Sodium, Blood 137 mmol/L (136-145)
--- NOTE | 2020-10-13 06:06 | NUR ---
SUMMARY PT IS AWAKE, A&O X3. VSS, ON RA, DENIES SOB/CP. GLUCOSE CHECKS Q2 HRS, GLUCOSE THIS AM IS 98, PT IS CURRENTLY NPO, NO SPEACH/SWALLOWING IMPAIRMENTS NOTED SINCE ADMISSION. PT CONTINUES TO BECOME TEARFUL WHEN ASKED QUESTIONS, SHE STATES SHE DOES NOT KNOW THE ANSWERS TO HER MEDICAL HX. PT STATES HER SISTER IS POA. BED ALARM PLACED FOR SAFETY PURPOSES, PT EDUCATED ON SAFETY PROTOCOL. NS INFUSING @ 125/HR. CALL LIGHT IN REACH
--- NOTE | 2020-10-13 08:03 | NUR ---
PT STATING SHE WOULD LIKE TO LEAVE AMA. MRI TO BE COMPLETED TODAY, ASKED PT IF SHE IS WILLING TO WAIT UNTIL AFTER AND EXPLAINED THE RISKS TO HER OF LEAVING. PT STATED SHE IS STARVING AND WANTS TO LEAVE IF SHE CANNOT EAT. PT STATING SHE IS WILLING TO STAY IF SHE CAN GET SOME BREAKFAST. CLEAR LIQUIDS ORDERED PER DARELL, MAY ADVANCE DIET IF PT TOLERATES IT WELL.
--- NOTE | 2020-10-13 14:41 | NUR ---
PHYSICIAN NOTIFIED PHYSICIAN INFORMED REGARDING ELEVATED CBG OF 483 VIA TELEPHONE. ORDERS ADJUSTED. 15 UNITS OF HUMALOG AND 15 UNITS OF SEMGLEE ADMINISTERED. CONTINUING TO MONITOR CBG Q2H. FOLLOWING CBG WAS 395. PT IS A&O, DENIES ANY DISTRESS. PHYSICIAN UPDATED AGAIN VIA TELEPHONE. NO ORDERS PROVIDED AT THIS TIME.
--- NOTE | 2020-10-13 18:27 | NUR ---
SHIFT SUMMARY PT WAKES TO VERBAL STIMULI, A&Ox4, ABLE TO MAKE HER NEEDS KNOWN. BP CONTINUES TO BE ELEVATED, PROVIDER INFORMED. CONTINUES TO HAVE R ARM MUSCLE SPASPS, APPROX 4 THIS SHIFT. PT STATES IT IS EXTREAMLY PAINFUL AND FRUSTRATING. MRI WAS COMPLETED THIS SHIFT. K+ NOW WNL AFTER 60 MEQ INFUSED. NS RUNNING @ 125 ML/HR. CBG CHECKS Q2H, CBGs ARE ELVATED AGAIN AFTER PT PLACED BACK ON REGULAR ADA DIET, MEDS WERE ADJUSTED, CBG NOW IMPROVING. PT IS CURRENTLY RESTING IN BED WITH CALL LIGHT WITHIN REACH, CALLS APPROPRIATELY.
[2020-10-14 03:42] LABS: Hematocrit 24.9 % (33.0-51.0); Hemoglobin 8.8 g/dL (11.5-16.0); Mean Corpuscular HGB 32.7 pg (26.0-34.0); Mean Corpuscular HGB Conc 35.3 g/dL (31.5-36.5); Mean Corpuscular Volume 93 fL (80-100); Mean Platelet Volume 11.1 fL (9.1-12.4); Platelet Count 225 K/mm3 (150-400); RDW Coefficient Variation 13.8 % (11.7-14.2); RDW Standard Deviation 46.6 fL (35.1-46.3); Red Blood Cell Count 2.69 M/mm3 (3.80-5.20); White Blood Cell Count 5.69 K/mm3 (4.00-11.30)
[2020-10-14 04:07] LABS: Anion Gap 5 mmol/L (6-16); Blood Urea Nitrogen 16 mg/dL (8-24); Bun/Creatinine Ratio 18.2 (12.0-20.0); CO2, Blood 21 mmol/L (21-32); Calcium, Blood 7.4 mg/dL (8.5-10.1); Chloride, Blood 110 mmol/L (98-108); Creatinine, Blood 0.88 mg/dL (0.40-1.00); Ferritin, Serum 222 ng/mL (8-252); Glomerular Filtration Rate >60 (60-); Glucose, Blood 184 mg/dL (70-99); Iron Serum 42 ug/dL (50-170); Magnesium, Blood 1.7 mg/dL (1.6-2.4); Percent Saturation 32.1 % (15.0-50.0); Phosphorus, Blood 2.7 mg/dL (2.5-4.9); Potassium, Blood 4.9 mmol/L (3.5-5.5); Sodium, Blood 136 mmol/L (136-145); Total Iron Binding Capacity 131 ug/dL (250-450)
--- NOTE | 2020-10-14 04:46 | NUR ---
SHIFT SUMMARY PATIENT IS ALERT AND ORIENTED TO SELF AND PLACE, BUT UNABLE TO STATE YEAR AND THINKS IT IS JULY. PATIENT VERY AGGITATED AT TIMES AND UNWILLING TO PARTICIPATE IN SOME OF MY ASSESSMENT SUCH CHECKING BILATERAL DISTRIBUTOR OF DIRECTORIES STRENGTH AND ANSWERING SOME QUESTIONS. PATIENT SCREAMING/CRY AT BEGINNING OF SHIFT DUE TO RUE PAIN, MEDICATED PER EMAR. PATIENT SLEPT MOST THE NIGHT. 1 PERSON ASSIST TO THE BATHROOM. BP ELEVATED BUT IMPROVED PATIENT CALMED DOWN. 02 SATS >95% ON RA. VSS, NO ACUTE CHANGES. CALL LIGHT IN REACH.
--- NOTE | 2020-10-14 18:13 | NUR ---
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 LOZOYA 2/2 HYPERTENSION; HYPOGLYCEMIA MEDICATED 3X PER JUN; PT GIVEN LORAZEPAM IV 1X AND PO 1X FOR REPORTED ANXIETY; PT REPORTED RELIEF FROM RX; PT CALLED AT 1109 AND 1315 CONCERNING PT'S LORAZEPAM RESPONSE AND PERSISTENT HYPERGLYCEMIA, RESPECTIVELY; PT DENIES ADDITIONAL CONCERNS AT THIS TIME
--- NOTE | 2020-10-14 19:30 | NUR ---
PT IS ALERT AND ORIENTED, PALE SKIN COLOR, FRAIL IN APPEARANCE. PT HAS A HISTORY OF SUBSTANCE ABUSE, SEE URINE TOXICOLOGY. NEURO CHECK - RUE AND RLE, WITH SLIGHT DECREASE IN STRENGTH FROM LUE/LLE. PT REPORTS HER FEET "ALWAYS NUMB/TINGLY." PT REQUESTING A WARM BLANKET, ICE WATER, AND SNACKS - ALL PROVIDED. NORMAL SALINE INFUSING WITHOUT DIFFICULTY TO R FA IV SITE. CALL LIGHT WITHIN REACH. BED IN LOW POSITION. BED ALARM ON FOR PT SAFETY. FLUIDS AT BEDSIDE.
--- NOTE | 2020-10-14 20:55 | NUR ---
PT HAVING RIGHT ARM MUSCLE SPASM - PT REQUESTING ATIVAN - CONTACTED DR. PIERCE - RECEIVED ONE TIME DOSE OF ATIVAN IV. CALL LIGHT WITHIN REACH. BED IN LOW POSITION.
--- NOTE | 2020-10-15 00:22 | NUR ---
PT HAS BEEN SLEEPING FOR APPX 2 HOURS - RESPIRATIONS EVEN AND UNLABORED. CALL [facility] WITHIN REACH. BED IN LOW POSITION. BED ALARM ON FOR PATIENT SAFETY. FLUIDS AT BEDSIDE.
--- NOTE | 2020-10-15 02:46 | NUR ---
1929 CORRECTION - PER PATIENT REPORT SHE USES METHAMPHETAMINE, HOWEVER, UTOX WAS NEGATIVE.
--- NOTE | 2020-10-15 04:18 | NUR ---
PT YELLING OUT IN PAIN DUE TO RIGHT ARM MUSCLE SPASM - PT IS REQUESTING ATIVAN. SEE EMAR FOR FOLLOW UP. PT THEN SITTING UP AND DANGLING HER LEGS HOLDING ONTO HER RIGHT ARM. CALL LIGHT WITHIN REACH. BED IN LOW POSITION.
--- NOTE | 2020-10-15 04:37 | NUR ---
ROUNDED AGAIN ON PT, AND SHE REPORTS SHE IS HAVING A HARD TIME BREATHING - INSTRUCTED PT ON TAKING DEEP BREATHS - PT DEMONSTRATED THIS. 0438 - VS TAKEN, BP 222/138, HR LOW 100'S. STAYED WITH PT, CONTACTED CN, ANGELICA, REPORT IS SHE WAS OUT OF THE BUILDING. 0440 - SHELBY RN AND STELLA, RN TO THE ROOM. PT PLACED ON 4L O2, PT'S HEAD TURNED TO THE RIGHT, AND PT APPEARED TO BEGIN TO SEIZE AT 0445. JACE, ICU CN TO THE ROOM AT 0445. RELAYED TO STAFF, PT HAS A HISTORY OF SEIZURES, AND THAT SHE RECEIVED ATIVAN PO AT 0420, AND PT IS ON KEPPRA. CONTACTED DR. MCDONOUGH AND RECEIVED ORDER FOR ATIVAN IV - 1 MG. ATIVAN IV 1MG GIVEN AT 0454. PT CONTINUED TO APPEAR TO BE HAVING A SEIZURE, DR. MCDONOUGH CALLED AGAIN AT 0504, RECEIVED ANOTHER ATIVAN IV ORDER - SEE EMAR. THIS RN REQUESTED DR. MCDONOUGH COME SEE THE PT. ALSO SEE VS FOR FOLLOW UP. DR. MCDONOUGH ARRIVED TO ROOM AT 0507. SEE EMAR FOR FOLLOW UP ON MEDICATIONS GIVEN. DR. MCDONOUGH IN ROOM UNTIL 0525. PT TAKEN TO STAT CT AT 0555, AFTER KEPPRA IV INFUSED, PER DR. MCDONOUGH ORDER.
[2020-10-15 05:48] LABS: BASOPHILS ABSOLUTE AUTO 0.02 K/mm3 (0.00-0.23); BASOPHILS PERCENT AUTO 0 % (0-2); EOSINOPHILS ABSOLUTE AUTO 0.07 K/mm3 (0.00-0.68); EOSINOPHILS PERCENT AUTO 1 % (0-6); Hematocrit 26.7 % (33.0-51.0); Hemoglobin 9.2 g/dL (11.5-16.0); IMMATURE GRAN ABSOLUTE AUTO 0.02 K/mm3 (0.00-0.10); IMMATURE GRAN PERCENT AUTO 0 % (0-1); LYMPHOCYTES ABSOLUTE AUTO 2.22 K/mm3 (0.84-5.20); LYMPHOCYTES PERCENT AUTO 42 % (21-46); MONOCYTES ABSOLUTE AUTO 0.31 K/mm3 (0.16-1.47); MONOCYTES PERCENT AUTO 6 % (4-13); Mean Corpuscular HGB 33.1 pg (26.0-34.0); Mean Corpuscular HGB Conc 34.5 g/dL (31.5-36.5); Mean Corpuscular Volume 96 fL (80-100); Mean Platelet Volume 11.1 fL (9.1-12.4); NEUTROPHILS ABSOLUTE AUTO 2.68 K/mm3 (1.96-9.15); NEUTROPHILS PERCENT AUTO 50 % (41-73); Platelet Count 220 K/mm3 (150-400); RDW Coefficient Variation 14.3 % (11.7-14.2); RDW Standard Deviation 49.6 fL (35.1-46.3); Red Blood Cell Count 2.78 M/mm3 (3.80-5.20); White Blood Cell Count 5.32 K/mm3 (4.00-11.30)
[2020-10-15 06:05] LABS: Anion Gap 5 mmol/L (6-16); Blood Urea Nitrogen 23 mg/dL (8-24); Bun/Creatinine Ratio 23.9 (12.0-20.0); CO2, Blood 20 mmol/L (21-32); Calcium, Blood 7.5 mg/dL (8.5-10.1); Chloride, Blood 112 mmol/L (98-108); Creatinine, Blood 0.96 mg/dL (0.40-1.00); Glomerular Filtration Rate >60 (60-); Glucose, Blood 123 mg/dL (70-99); Phosphorus, Blood 3.3 mg/dL (2.5-4.9); Potassium, Blood 4.4 mmol/L (3.5-5.5); Sodium, Blood 137 mmol/L (136-145)
--- NOTE | 2020-10-15 06:10 | NUR ---
CONTACTED ROCAEL U [employer] FOR INFORMATION REGARDING PT'S RHYTHM DURING THE PREVIOUS DOCUMENTED EVENT - SHE RELAYED AT 0345 SHE CONTACTED BEENA U AUTO DEALER THAT PT WAS HAVING ARTIFACT. ROCAEL REPORTED SHE CONTACTED BEENA, ONE (1) FURTHER TIME AFTER 034 WITH AN UPDATE THAT PT CONTINUED WITH ARTIFACT. ROCAEL RELAYED PT'S HEART RHYTHM WAS NSR AT 0517. I WASN'T CONTACTED FROM 0345 UP UNTIL I WAS PRESENT IN THE ROOM AT 0437 WITH ANY ARTIFACT ON THE HEART MONITOR. AT 0518, DR. MCDONOUGH RELAYED PT HAD STOPPED SEIZING, DR. MCDONOUGH CONTINUED IN THE PT'S ROOM. PT WAS RESPONDING TO DR. MCDONOUGH'S QUESTIONS AFTER 517, BUT THEN PT DRIFTED BACK TO SLEEP. SEE LAB FOR CBG'S MONITORED. REVIEWED WITH DWAIN DOMINGUEZ AND FRIDA, [employer], THE ABOVE EVENT, AND WE REVIEWED PT'S HEART RHYTHM ON THE PCU MONITOR. PT DID BEGIN WITH ARTIFACT AT 0345. PT DID BEGIN TO HAVE A HEART RHYTHM AT 045, APPEARED TO BE NSR, BUT THEN ARTIFACT OCCURRED AFTER 045 UNTIL 516 WHEN PT'S HEART RHYTHM SHOWED NSR. PT WAS SLEEPING AFTER 517, AND PT WAS TAKEN TO A STAT HEAD CT WITHOUT CONTRAST.
--- NOTE | 2020-10-15 08:33 | NUR ---
SHIFT SUMMARY - SEE PREVIOUS DOCUMENTATION FROM [facility] FOR SEIZURE AND FOLLOW UP THAT OCCURRED. REPORT GIVEN TO BRIE CLARK THIS AM.
--- NOTE | 2020-10-15 09:53 | NUR ---
0810 CBG 91, PT IS DIFFICULT TO AROUSE POSSIBLY FROM ATIVAN GIVEN TO ASSIST WITH CONTROLLING SEIZURE ACTIVITY, AND NOT TAKING PO, PT RECIEVED 20 UNITS SEMGLEE INSULIN DURING NOC. DR. LOZOYA NOTIFIED, RECIEVED ORDERS FOR D5 WITH 1/2 NS AT 75 ML/HR.
--- NOTE | 2020-10-15 09:56 | NUR ---
PT CONTINUES WITH LETHARGY, CBG 89. UNABLE TO COMPLETE THOROUGH ASSESSMENT AT THIS TIME.
--- NOTE | 2020-10-15 11:40 | NUR ---
ASSUMED CARE OF PT FROM BRIE CLARK.
--- NOTE | 2020-10-15 12:45 | NUR ---
PT LYING ON HER SIDE IN BED, EYES CLOSED, RESPIRATIONS EVEN AND UNLABORED, APPEARS TO BE SLEEPING. EASILY AWOKEN. SEE VITAL SIGNS RECORDED. PT DENIES ANY NEEDS AT THIS TIME. CALL LIGHT IN REACH, BED IN LOW POSITION.
--- NOTE | 2020-10-15 15:00 | NUR ---
CULTURIST AT BEDSIDE. PT CONTINUES TO BE SOMULENT. LAST FSBS 159, PT DID NOT WAKE UP AND EAT LUNCH, D5 INFUSION CONTINUES.
--- NOTE | 2020-10-15 16:09 | NUR ---
DR LOZOYA AT BEDSIDE TO DISCUSS PT.
--- NOTE | 2020-10-15 17:59 | NUR ---
PT HAS REMAINED LETHARGIC THROUGHOUT MOST OF THE DAY. SHE IS AWAKE AND ALERT AT THIS TIME, SITTING UP IN A CHAIR EATING DINNER. PT HAS NO COMPLAINTS OF PAIN OR DISCOMFORT AT THIS TIME. D5 1/2NS GTT CONTINUES, WILL REPORT OFF TO NOC RN TO CONTINUE TO MONITOR HER FSBS AND STOP GTT WHEN APPROPRIATE.
--- NOTE | 2020-10-15 21:46 | NUR ---
FSBS [address] PIERCE CONTACTED FOR HS SLIDING SCALE INSULIN. SEE ORDERS.
--- NOTE | 2020-10-16 00:15 | NUR ---
SEIZURE-LIKE ACTIVITY PT ACTIVATED CALL LIGHT, THEN BEGAN CALLING OUT MOMENTS LATER. UPON ENTRY TO PT RM, PT LAYING IN BED, EYES CLENCHED CLOSED, W/ SEIZURE-LIKE ACTIVITY, NOT RESPONDING TO STAFF. 1 MG PRN IV ATIVAN GIVEN PER EMAR W/ SEIZURE-LIKE ACTIVITY THEN CEASING SHORTLY AFTER. SEIZURE-LIKE ACTIVITY LASTING FROM APPROXIMATELY [id number]. VSS. PT EYES THEN OPENING SPONTANEOUSLY & PT ABLE TO ANSWER Q's & FOLLOW INSTRUCTIONS. PT REPORTS FEELING THE SEIZURE "COMING ON" THEREFORE HIT THE CALL LIGHT BEFORE HAND.
[2020-10-16 04:19] LABS: BASOPHILS ABSOLUTE AUTO 0.02 K/mm3 (0.00-0.23); BASOPHILS PERCENT AUTO 0 % (0-2); EOSINOPHILS ABSOLUTE AUTO 0.09 K/mm3 (0.00-0.68); EOSINOPHILS PERCENT AUTO 2 % (0-6); Hematocrit 26.1 % (33.0-51.0); Hemoglobin 8.8 g/dL (11.5-16.0); IMMATURE GRAN ABSOLUTE AUTO 0.03 K/mm3 (0.00-0.10); IMMATURE GRAN PERCENT AUTO 1 % (0-1); LYMPHOCYTES ABSOLUTE AUTO 2.04 K/mm3 (0.84-5.20); LYMPHOCYTES PERCENT AUTO 35 % (21-46); MONOCYTES ABSOLUTE AUTO 0.35 K/mm3 (0.16-1.47); MONOCYTES PERCENT AUTO 6 % (4-13); Mean Corpuscular HGB 32.4 pg (26.0-34.0); Mean Corpuscular HGB Conc 33.7 g/dL (31.5-36.5); Mean Corpuscular Volume 96 fL (80-100); Mean Platelet Volume 11.5 fL (9.1-12.4); NEUTROPHILS ABSOLUTE AUTO 3.26 K/mm3 (1.96-9.15); NEUTROPHILS PERCENT AUTO 56 % (41-73); Platelet Count 241 K/mm3 (150-400); RDW Coefficient Variation 14.2 % (11.7-14.2); RDW Standard Deviation 49.6 fL (35.1-46.3); Red Blood Cell Count 2.72 M/mm3 (3.80-5.20); White Blood Cell Count 5.79 K/mm3 (4.00-11.30)
[2020-10-16 05:00] LABS: Anion Gap 6 mmol/L (6-16); Blood Urea Nitrogen 26 mg/dL (8-24); Bun/Creatinine Ratio 26.6 (12.0-20.0); CO2, Blood 20 mmol/L (21-32); Calcium, Blood 7.7 mg/dL (8.5-10.1); Chloride, Blood 110 mmol/L (98-108); Creatinine, Blood 0.98 mg/dL (0.40-1.00); Glomerular Filtration Rate >60 (60-); Glucose, Blood 161 mg/dL (70-99); Potassium, Blood 5.3 mmol/L (3.5-5.5); Sodium, Blood 136 mmol/L (136-145)
--- NOTE | 2020-10-16 05:34 | NUR ---
SHIFT SUMMARY PT IS AOX3, BREATHING EVEN AND UNLABORED T/O SHIFT. X1 EPISODE OF SEIZURE LIKE ACTIVITY WITNESSED BY ANGELICA MADRID RN, PT ALERT AND ANSWERING QUESTIONS SHORTLY AFTER EPISODE. PT ON TELE, SR-ST 80'S-90'S ON AVERAGE, ONE EPISODE OF LOW 100'S HR. SBP 120'S-150'S. SATS 94-100% ON RA. PT CONSTANTLY REQUESTING SNACKS T/O SHIFT DESPITE THIS RN EXPLAINING PT'S HIGH BLOOD GLUCOSE AND NEED TO CUT BACK IN NIGHT. PT LABILE, CRYING AND AGITATED TELLING THIS RN SHE HAS TO HAVE FOOD BECAUSE SHE'S STILL HUNGRY. THIS RN ATTEMPTS TO COMPROMISE WITH PT MULTIPLE TIMES WITH CRACKERS AND BROTH. PT ADAMANT SHE NEEDS SANDWHICH THIS RN EXPLAINS NEED TO AVOID CAUSING BLOOD GLUCOSE TO CONTINUE TO CLIMB AND EXPLAINS TIME OF BREAKFAST. PT EVENTUALLY AGREED TO REST FOR AWHILE AND NO MORE CALLS FOR SNACKS. PT TOLD SHE WILL NEED TO USE THE BEDPAN NEXT TIME SHE WANTS UP DUE TO PT NEARLY FALLING BACKWARD WHEN UP WITH THIS RN AND ANGELICA RN TO USE COMMODE DUE TO UNSTEADY ON FEET. PT BECAME TEARFUL AND UPSET CLAIMING SHE WOULD BE STUCK IN THE BED FOREVER. THIS RN EXPLAINED IMPORTANCE OF SAFETY TO PT AND CONCERN FOR ONGOING SEIZURE ACTIVITY AND RISK FOR FALLS. PT EVENTUALLY CALMED FOLLOWING OUTBURST. PT HAD INITIALLY REFUSED TO GO BACK TO BED AND WANTED TO SIT IN CHAIR, THIS RN EXPLAINED NEED FOR SAFETY MEASURES OF BED D/T SEIZURE ACTIVITY AND WEAKNESS. PT AGREEABLE TO LAY IN BED. IV SALINE LOCKED.
--- NOTE | 2020-10-16 12:04 | NUR ---
PT'S VSS, MILNER, AND PRESENTS A0X4 WITH MODERATE ANXIETY ABOUT OBTAINING ADDITIONAL SNACKS; PT RECEIVED 3 SNACKS IN ADDITION TO BREAKFAST AND REPORTED EATING "IT ALL BUT STILL BEING HUNGRY"; PT REPORTED WANTING TO LEAVE AMA; PT PROVIDED WITH EXTENSIVE INFORMATION AT THE BEDSIDE ABOUT MEDICATIONS, BLOOD SUGAR MONITORING, AND RISK OF STROKE AND SEIZURE; PT VERBALLY ACKNOWLEDGED RISKS; DR. LOZOYA ROUNDED AND PT VERBALIZED DISPLEASURE WITH FOOD; PT REPORTED CALLING HER SISTER AND THAT SHE WAS DOWNSTAIRS WAITING TO PICK HER UP; DR. LOZOYA NOTIFIED BY PHONE AT 1050; IV REMOVED AT 1115 AND TELEMETRY D/C'ED; PT'S BELONGINGS GATHERED BY PT AND PT ASSISTED TO CHANGE CLOTHES; PT SIGNED AMA PAPERWORK AND LEFT UNIT ACCOMPANIED BY NURSE TUBE PUSHER VIA WHEELCHAIR WITH NO INFUSIONS, OXYGEN THERAPY, OR MONITORING AT 1130; PT DENIED ADDITIONAL CONCERNS AT THIS TIME
== END 2020-10-16 11:27 | disposition left against medical advice (07) | DRG 65 ==
LOC: ER 19:33 → PCU 19:34
PROVIDERS: Emergency Medicine; Internal Medicine; ADMIT Family Medicine
DX: I63.89 Other cerebral infarction (principal); K86.1 Other chronic pancreatitis; E87.2 Acidosis; E87.1 Hypo-osmolality and hyponatremia; G40.109 Localization-related (focal) (partial) symptomatic epilepsy and epileptic syndromes with simple partial seizures, not intractable, without status epilepticus; E46 Unspecified protein-calorie malnutrition; K21.9 Gastro-esophageal reflux disease without esophagitis; M81.0 Age-related osteoporosis without current pathological fracture; R20.2 Paresthesia of skin; E11.65 Type 2 diabetes mellitus with hyperglycemia; G83.21 Monoplegia of upper limb affecting right dominant side; F19.10 Other psychoactive substance abuse, uncomplicated; F12.10 Cannabis abuse, uncomplicated; J42 Unspecified chronic bronchitis; K70.30 Alcoholic cirrhosis of liver without ascites; E11.42 Type 2 diabetes mellitus with diabetic polyneuropathy; D63.8 Anemia in other chronic diseases classified elsewhere; F41.1 Generalized anxiety disorder; Z53.29 Procedure and treatment not carried out because of patient's decision for other reasons; F10.10 Alcohol abuse, uncomplicated; E11.649 Type 2 diabetes mellitus with hypoglycemia without coma; M21.331 Wrist drop, right wrist; F32.9 Major depressive disorder, single episode, unspecified; F17.210 Nicotine dependence, cigarettes, uncomplicated; F15.10 Other stimulant abuse, uncomplicated; Z98.51 Tubal ligation status; Z79.01 Long term (current) use of anticoagulants; Z79.4 Long term (current) use of insulin; Z79.82 Long term (current) use of aspirin; Z79.899 Other long term (current) drug therapy; Z79.02 Long term (current) use of antithrombotics/antiplatelets; Z91.14 Patient's other noncompliance with medication regimen; Z71.6 Tobacco abuse counseling
CPT/HCPCS: 36415; 70450; 70551; 80048; 80053; 80061; 80069; 82010; 82728; 82803; 82947; 83036; 83540; 83550; 83735; 84100; 84132; 85025; 85027; 85610; 85730; 93005; 93010; 94762; 95819; 96372; 97110; 97162; 99285-25; A9270; G0378; J1650; J1815; J1953; J2060; J3480; J7030; J7042

== ENCOUNTER 2020-10-17 17:57 | Emergency (ER) | payer OTHER ==
[~2020-10-17] VITALS: Ht 170.2 cm; Wt 61.2 kg
[2020-10-17 19:51] LABS: Source, Urine Catheter
[2020-10-17 19:57] LABS: Bilirubin, Urine Neg (Neg); Blood, Urine 3+ (Neg); Glucose Qualitative, Urine 4+ (Neg); Ketones, Urine Neg (Neg); Leukocyte Esterase, Urine 2+ (Neg); Nitrite, Urine Neg (Neg); Protein, Urine 3+ (Neg); Urobilinogen, Urine NORM (Normal); pH, Urine 6.5 (5.0-8.0)
[2020-10-17 20:12] LABS: U Amphetamine Screen Not Detected; U Barbituate Screen Not Detected; U Benzodiazapine Screen Not Detected; U Buprenorphine Screen Not Detected; U Cannabinoids Screen Not Detected; U Cocaine Screen Not Detected; U Methadone Screen Not Detected; U Methamphetamine Screen DETECTED; U Opiates Screen Not Detected; U Oxycodone Screen Not Detected; U Phencyclidine Screen Not Detected; U Propoxyphene Screen Not Detected
[2020-10-17 20:16] LABS: Appearance, Urine Clear (Clear); Color, Urine Pale Yellow (P-Yellow)
[2020-10-17 20:17] LABS: Bacteria Few /hpf; Squamous Epithelial Cells Few /hpf (Few)
[2020-10-17 20:40] LABS: BASOPHILS ABSOLUTE AUTO 0.03 K/mm3 (0.00-0.23); BASOPHILS PERCENT AUTO 1 % (0-2); EOSINOPHILS ABSOLUTE AUTO 0.15 K/mm3 (0.00-0.68); EOSINOPHILS PERCENT AUTO 2 % (0-6); Hematocrit 27.8 % (33.0-51.0); Hemoglobin 9.6 g/dL (11.5-16.0); IMMATURE GRAN ABSOLUTE AUTO 0.03 K/mm3 (0.00-0.10); IMMATURE GRAN PERCENT AUTO 1 % (0-1); LYMPHOCYTES ABSOLUTE AUTO 1.87 K/mm3 (0.84-5.20); LYMPHOCYTES PERCENT AUTO 31 % (21-46); MONOCYTES PERCENT AUTO 7 % (4-13); Mean Corpuscular HGB Conc 34.5 g/dL (31.5-36.5); Mean Corpuscular Volume 96 fL (80-100); NEUTROPHILS ABSOLUTE AUTO 3.65 K/mm3 (1.96-9.15); NEUTROPHILS PERCENT AUTO 60 % (41-73); Platelet Count 245 K/mm3 (150-400); RDW Coefficient Variation 13.7 % (11.7-14.2); Red Blood Cell Count 2.91 M/mm3 (3.80-5.20); White Blood Cell Count 6.13 K/mm3 (4.00-11.30)
[2020-10-17 21:07] LABS: Albumin/Globulin Ratio 0.6 (0.8-1.8); Bilirubin, Total 0.2 mg/dL (0.1-1.0); Bun/Creatinine Ratio 20.8 (12.0-20.0); Calcium, Blood 7.9 mg/dL (8.5-10.1); Creatinine, Blood 1.06 mg/dL (0.40-1.00); Globulin, Blood 3.6 g/dL (2.2-4.0); Magnesium, Blood 1.9 mg/dL (1.6-2.4); Potassium, Blood 4.2 mmol/L (3.5-5.5); Total Protein, Blood 5.6 g/dL (6.4-8.2); Troponin I 0.081 ng/mL (0.000-0.040)
== END 2020-10-18 01:02 | disposition home or self-care (01) ==
LOC: ER 17:57
PROVIDERS: Emergency Medicine
DX: G40.909 Epilepsy, unspecified, not intractable, without status epilepticus (principal); I69.351 Hemiplegia and hemiparesis following cerebral infarction affecting right dominant side; E11.65 Type 2 diabetes mellitus with hyperglycemia; E11.40 Type 2 diabetes mellitus with diabetic neuropathy, unspecified; K21.9 Gastro-esophageal reflux disease without esophagitis; F17.210 Nicotine dependence, cigarettes, uncomplicated; Z79.82 Long term (current) use of aspirin; Z79.899 Other long term (current) drug therapy; Z79.02 Long term (current) use of antithrombotics/antiplatelets; Z91.14 Patient's other noncompliance with medication regimen; Z88.2 Allergy status to sulfonamides; Z88.8 Allergy status to other drugs, medicaments and biological substances; Z88.1 Allergy status to other antibiotic agents
CPT/HCPCS: 36415; 70450; 80053; 81001; 82947; 83735; 84484; 85025; 87077; 87086; 87186; 93005; 93010; 99285-25; J1815

== ENCOUNTER 2020-10-24 19:27 | Inpatient (IN) | payer OTHER ==
[~2020-10-24] VITALS: Ht 152.4 cm; Wt 49.5 kg
[2020-10-24 19:45] LABS: Calcium, Ionized (POC) 1.16 mmol/L (1.10-1.46); Chloride (POC) 91 mmol/L (98-108); Creatinine (POC) 2.9 mg/dL (0.6-1.0); Glucose (ISTAT POC) >700 mg/dL (70-99); Hemoglobin (POC) 8.5 g/dL (12.0-16.0); Potassium (POC) 5.3 mmol/L (3.5-5.5); Sodium (POC) 125 mmol/L (135-148); Total CO2 (POC) 23 mmol/L (21-32)
[2020-10-24 20:15] LABS: BASOPHILS ABSOLUTE AUTO 0.03 K/mm3 (0.00-0.23); BASOPHILS PERCENT AUTO 1 % (0-2); EOSINOPHILS ABSOLUTE AUTO 0.08 K/mm3 (0.00-0.68); EOSINOPHILS PERCENT AUTO 2 % (0-6); Hematocrit 26.5 % (33.0-51.0); Hemoglobin 8.3 g/dL (11.5-16.0); IMMATURE GRAN ABSOLUTE AUTO 0.02 K/mm3 (0.00-0.10); IMMATURE GRAN PERCENT AUTO 0 % (0-1); LYMPHOCYTES ABSOLUTE AUTO 2.05 K/mm3 (0.84-5.20); LYMPHOCYTES PERCENT AUTO 44 % (21-46); MONOCYTES ABSOLUTE AUTO 0.37 K/mm3 (0.16-1.47); MONOCYTES PERCENT AUTO 8 % (4-13); Mean Corpuscular HGB 32.8 pg (26.0-34.0); Mean Corpuscular HGB Conc 31.3 g/dL (31.5-36.5); Mean Corpuscular Volume 105 fL (80-100); Mean Platelet Volume 12.3 fL (9.1-12.4); NEUTROPHILS ABSOLUTE AUTO 2.14 K/mm3 (1.96-9.15); NEUTROPHILS PERCENT AUTO 46 % (41-73); Platelet Count 119 K/mm3 (150-400); RDW Coefficient Variation 13.5 % (11.7-14.2); RDW Standard Deviation 51.7 fL (35.1-46.3); Red Blood Cell Count 2.53 M/mm3 (3.80-5.20); White Blood Cell Count 4.69 K/mm3 (4.00-11.30)
[2020-10-24 20:18] LABS: Source, Urine Catheter
[2020-10-24 20:26] LABS: Bilirubin, Urine Neg (Neg); Blood, Urine 4+ (Neg); Glucose Qualitative, Urine 4+ (Neg); Ketones, Urine Neg (Neg); Leukocyte Esterase, Urine Neg (Neg); Nitrite, Urine Neg (Neg); Protein, Urine 3+ (Neg); Urobilinogen, Urine NORM (Normal); pH, Urine 6.5 (5.0-8.0)
[2020-10-24 20:36] LABS: U Amphetamine Screen DETECTED; U Barbituate Screen Not Detected; U Benzodiazapine Screen Not Detected; U Buprenorphine Screen Not Detected; U Cannabinoids Screen Not Detected; U Cocaine Screen Not Detected; U Methadone Screen Not Detected; U Methamphetamine Screen DETECTED; U Opiates Screen Not Detected; U Oxycodone Screen Not Detected; U Phencyclidine Screen Not Detected; U Propoxyphene Screen Not Detected
[2020-10-24 20:40] LABS: Acetaminophen, Random <2.0 ug/mL (10.0-30.0); Beta-hydroxybutyrate 1.6 mg/dL (0.2-2.8); CPK Creatine Kinase 86 U/L (26-193); Creatine Kinase MB 1.7 ng/mL (0.0-3.6); Ethanol (Alcohol), Blood, Med <3 mg/dL; Magnesium, Blood 1.9 mg/dL (1.6-2.4); Salicylate <1.7 mg/dL (2.8-20.0); Troponin I <0.015 ng/mL (0.000-0.040)
[2020-10-24 20:43] LABS: International Normalized Ratio 0.89; Prothrombin Time Results 9.7 Sec (9.7-11.5)
[2020-10-24 20:43] LABS: Appearance, Urine Clear (Clear); Color, Urine Pale Yellow (P-Yellow)
[2020-10-24 20:44] LABS: Bacteria Few /hpf; Squamous Epithelial Cells Few /hpf (Few); White Blood Cells, Urine 0-2 /hpf (0-5)
[2020-10-24 20:46] LABS: Alanine Aminotransfer (ALT/SGP 135 U/L (12-78); Albumin, Blood 2.1 g/dL (3.4-5.0); Albumin/Globulin Ratio 0.6 (0.8-1.8); Alk Phos 442 U/L (50-136); Anion Gap 7 mmol/L (6-16); Aspartate Aminotrans (AST/SGOT 149 U/L (12-37); Bilirubin, Total 0.2 mg/dL (0.1-1.0); Blood Urea Nitrogen 27 mg/dL (8-24); Bun/Creatinine Ratio 10.2 (12.0-20.0); CO2, Blood 24 mmol/L (21-32); Calcium, Blood 7.8 mg/dL (8.5-10.1); Chloride, Blood 94 mmol/L (98-108); Creatinine, Blood 2.64 mg/dL (0.40-1.00); Globulin, Blood 3.8 g/dL (2.2-4.0); Glomerular Filtration Rate 21 (60-); Glucose, Blood 996 mg/dL (70-99); Potassium, Blood 5.1 mmol/L (3.5-5.5); Sodium, Blood 125 mmol/L (136-145); Total Protein, Blood 5.9 g/dL (6.4-8.2)
--- NOTE | 2020-10-24 23:25 | NUR ---
PT ARRIVED TO ICU VIA ED GURNEY. PT AROUSABLE TO VERBAL STIMULI, COMPLAINING OF BACK PAIN. ORIENTED TO SELF AND PLACE. PT WITH BRUISING TO R HIP, R BREAST, AND RED RASH TO UPPER AND LOWER EXTREMITIES. FOLLOWS COMMANDS. SHORTLY AFTER BEING SETTLED INTO ROOM, PT HAVING WHAT APPEARS TO BE SEIZURE LIKE ACTIVITY BUT ABLE TO ANSWER QUESTIONS DURING. PT'S SPO2 DROPS WHEN ASLEEP, 2L NC APPLIED. HR 70-80'S. SBP ELEVATED IN 180'S, PT VERY RESTLESS IN BED AT TIMES. PT INCONTINENT OF URINE, ATTENDS IN PLACE. WILL REVIEW ORDERS AND COME UP WITH PLAN OF CARE FOR PT.
[2020-10-25 00:18] LABS: Glucose, Blood 819 mg/dL (70-99)
[2020-10-25 02:16] LABS: BASOPHILS ABSOLUTE AUTO 0.04 K/mm3 (0.00-0.23); BASOPHILS PERCENT AUTO 1 % (0-2); EOSINOPHILS ABSOLUTE AUTO 0.12 K/mm3 (0.00-0.68); EOSINOPHILS PERCENT AUTO 3 % (0-6); Hematocrit 25.5 % (33.0-51.0); Hemoglobin 8.5 g/dL (11.5-16.0); IMMATURE GRAN ABSOLUTE AUTO 0.01 K/mm3 (0.00-0.10); IMMATURE GRAN PERCENT AUTO 0 % (0-1); LYMPHOCYTES PERCENT AUTO 47 % (21-46); MONOCYTES ABSOLUTE AUTO 0.32 K/mm3 (0.16-1.47); MONOCYTES PERCENT AUTO 8 % (4-13); Mean Corpuscular HGB 33.2 pg (26.0-34.0); Mean Corpuscular HGB Conc 33.3 g/dL (31.5-36.5); Mean Platelet Volume 11.1 fL (9.1-12.4); NEUTROPHILS ABSOLUTE AUTO 1.77 K/mm3 (1.96-9.15); NEUTROPHILS PERCENT AUTO 42 % (41-73); Platelet Count 118 K/mm3 (150-400); RDW Coefficient Variation 13.1 % (11.7-14.2); RDW Standard Deviation 47.7 fL (35.1-46.3); Red Blood Cell Count 2.56 M/mm3 (3.80-5.20); White Blood Cell Count 4.26 K/mm3 (4.00-11.30)
[2020-10-25 02:17] LABS: Mean Corpuscular Volume 100 fL (80-100)
[2020-10-25 02:35] LABS: Albumin, Blood 1.9 g/dL (3.4-5.0); Albumin/Globulin Ratio 0.5 (0.8-1.8); Bilirubin, Total 0.2 mg/dL (0.1-1.0); Bun/Creatinine Ratio 12.4 (12.0-20.0); Creatinine, Blood 1.93 mg/dL (0.40-1.00); Globulin, Blood 3.6 g/dL (2.2-4.0); Potassium, Blood 3.8 mmol/L (3.5-5.5); Total Protein, Blood 5.5 g/dL (6.4-8.2)
--- NOTE | 2020-10-25 06:11 | NUR ---
SHIFT SUMMARY PT RESTING COMFORTABLY IN BED, DENIES PAIN AT THIS TIME. AROUSABLE TO VERBAL STIMULI, ALERT TO SELF AND PLACE, FOLLOWING COMMANDS. LUNGS CLEAR WITH DIMINISHED BASES. INCONTINENT OF URINE, ATTENDS IN PLACE. PRN HYDRALAZING GIVEN ONCE THIS SHIFT, SBP 115-120'S. HR 70'S, SPO2 100% ON 2L NC. PT HAVING PSEUDO-SEIZURE LIKE ACTIVITY SEVERAL TIMES THIS SHIFT, ABLE TO ANSWER QUESTIONS DURING. INSULIN INFUSING AT 1 UNIT, NS AT 125 ML. WILL CONTINUE TO MONITOR UNTIL REPORT GIVEN TO ONCOMING RN.
--- NOTE | 2020-10-25 07:23 | NUR ---
Assumed care of this pt this morning. She is sleeping in bed. Her insulin gtt is still running as ordered along with NS. She is currently on 2 lpm via NC. Seizure precautions are in place and she is visible from the nurses station.
--- NOTE | 2020-10-25 11:10 | NUR ---
Echocardiogram completed
--- NOTE | 2020-10-25 17:51 | NUR ---
Shift Summary Pt has been a/o x 2-3 today and has moments where she is much more awake and alert. She is emotionally labile at times. The insulin gtt was stopped this morning per Dr Cantu and her CBGS have been WNL most of the day and slightly elevated after she started eating this afternoon. Her CBGS are now scheduled Q4 hours and her status was changed to PCU. The pt has been inc of B/B but does know when she needs to void. Her IV fluids are infusing as ordered and she is sitting up in bed eating dinner. She is on 2 LPM via NC with O2 SATS at 100%. Her pain has been controlled with PO pain meds as ordered. She is able to make her needs known and calls when needed.
--- NOTE | 2020-10-25 20:29 | NUR ---
ASSUMED CARE REPORT RECEIVED FROM DARREL BAIRD. PT SLEEPING IN BED, AROUSABLE TO VERBAL STIMULI. AOX3, DISORIENTED TO REASON FOR ADMIT TO HOSPITAL. NS INFUSING AT 75 ML/HR. PT WITH RIGHT SIDED DEFICITS FROM PRIOR STROKE. RUE EDEMA NEW PER PATIENT DUE TO RECENT FALL WITHIN THE LAST WEEK, FALL OCCURED DUE TO RLE WEAKNESS. PT STATES SHE NEEDS HELP AT HOME WITH CARE, SISTER HAS BEEN HELPING CARE FOR HER BUT IS UNABLE TO PROPERLY CARE FOR HER ANYMORE. ATTENDS IN PLACE FOR EPISODES OF INCONTINENCE.
--- NOTE | 2020-10-26 05:47 | NUR ---
SHIFT SUMMARY PT IS ALERT AND ORIENTED. VITALS ARE STABLE AND ON ROOM AIR. THERE HAVE BEEN ACUTE CHANGES DURING THE NIGHT. PT IS INCONT AT TIMES AND AT TIMES CAN USE THE BSC. PT HAS BEEN ASKING FOR FOOD SEVERAL TIMES T/O THE NIGHT. CALL LIGHT IS WITHIN REACH.
--- NOTE | 2020-10-26 06:43 | NUR ---
CALLED DR PIERCE REGARDING ELEVATED BLOOD SUGAR. ORDER GIVEN TO CANCEL D5 1/2NS INFUSION.
--- NOTE | 2020-10-26 18:50 | NUR ---
SHIFT SUMMARY PT HAS BEEN IN BED, SLEEPING UNLESS SHE IS HAVING A MEAL. PT HAS HAD SOME PAIN THIS AFTERNOON, SHE REPORTS HER BACK AND RIBS BEING SORE. PT REPORTS HER RIGHT ARM BEING WEAK FROM PREVIOUS CVA'S AND SHE STRUGGLES TO MOVE THE RIGHT ARM; SHE REQUESTED PHYSICAL THERAPY WHICH HAS NOW BEEN ORDERED. PT WAS MEDICATED FOR PAIN PER EMAR. PT HAS RECIVED SOME COVERAGE FOR ELEVATED CBG TODAY. PT ALSO HAD ELEVATED BP THIS AFTERNOON, MEDICATED PER EMAR. PT HAS HAD SOME ANXIETY TODAY BUT IT WAS HELPED WITH A NICOTINE PATCH AND ATIVAN. PT RESTING IN BED AT THIS TIME
--- NOTE | 2020-10-27 05:21 | NUR ---
SHIFT SUMMARY PT IS ALERT AND ORIENTED. THERE HAVE BEEN NO ACUTE CHANGES T/O THE NIGHT. VITALS HAVE BEEN STABLE AND ON ROOM AIR. PT HAS BEEN ANXIOUS AND CRYING; PAINFUL, WAS MEDICATED PER EMAR. PAIN IS IN THE RIGHT SIDE RIB AREA, STS DUE TO A RECENT FALL. HAS ASKED FOR SNACKS T/O THE NIGHT. PT IS ABLE TO GET UP WITH SBA TO BSC. CALL LIGHT IS WITHIN REACH.
--- NOTE | 2020-10-27 19:56 | NUR ---
SHIFT SUMMARY PT HAS BEEN ALERT FOR MEALS AND TREATMENTS OTHERWISE SHE HAS SLEPT THROUGHOUT THE DAY. PT HAD ONE ANXIETY ATTACK THIS AFTERNOON AND WAS MEDICATED PER EMAR. PT HAD ONE ELEVATED CBG BEFORE LUNCH AND HER SS HUMALOG WAS CHANGED FROM LOW TO MEDIUM. PT HAD ELEVATED BP THIS EVENING AND WAS MEDICATED PER EMAR; BP IMPROVED. PT WAS ABLE TO WORK WITH PHYSICAL THERAPY TODAY WELL. PT IS RESTING IN BED AT THIS TIME
--- NOTE | 2020-10-27 21:00 | NUR ---
CARE ASSUMPTION PT MEDICAL NO TELE STATUS. A&O X4. VSS. PT C/O RIB PAIN, MEDICATED PER EMAR. WILL CONTINUE TO MONITOR.
--- NOTE | 2020-10-28 07:41 | NUR ---
SHIFT SUMMARY PT CONTINUES TO BE A&O X4. R ARM FLACCID AT SIDE. PT TEARFUL D/T INABILITY TO USE R ARM TO BE ABLE TO PROVIDE OWN CARE. PT MEDICATED FOR RIB PAIN PER EMAR/PT REQUEST X1 THIS SHIFT. VSS. NO OTHER EVENTS.
--- NOTE | 2020-10-28 16:03 | NUR ---
SHIFT SUMMARY PT [id number], SHE HAS BEEN CALLING APPROPRIALY, 1 ASSIST TRANSFER TO BS. ON ROOM AIR AT THIS TIME, DENIES SOB. EATING FREQUENT SNACKS, BLOOD SUGARS UP FROM THIS AM. TOLERATING PO WELL. MEDICATED FOR NAUSEA X1, PT WAS DRY HEAVING. C/O H/A DURING SHIFT MEDICATED WITH NORCO X2. PT HAS BEEN TRANSFERED TO MEDICAL FLOOR. REPORT GIVEN TO RECIEVING NURSE.
--- NOTE | 2020-10-28 18:00 | NUR ---
SHIFT SUMMARY PT TRANSFERRED FROM PCU WITH A DX OF HNNK RENAL FAILURE. CBG STILL ELEVATED WITH COVERAGE. PT HAS HX OF SEIZURE; THEREFORE ON SEIZURE PRECAUTION. PT IS A 45F; ALERT ORINTED. ON ADA DIET AND ON RA NO TELE AND NO O2. PT WAS GIVEN HYDRALAZINE MEDICATION AT PCU PRIOR TO TRANSFER; PMH OF METH ABUSE, ANEMIA, PARTIAL SEIZURE, AND CVA WITH R SIDE DEFICIT. PT WORKING WITH PT/OT RECOMMENDING SNF. PT MEDICATED FOR NAUSEA. STATED HAS CHRONIC PAIN AND HAS PRN MEDICATION. EDEMATOUS ON BOTH UPPER ARMS. BED IS IN THE LOWEST POSITION AND CALL LIGHT WITHIN REACH
--- NOTE | 2020-10-29 05:54 | NUR ---
SHIFT SUMMARY A/OX3, ANXIOUS AT TIMES. C/O RIB PAIN, MEDICATED PER EMAR. R. SIDED DEFECITS NOTED FROM PREVIOUS CVA. 1 ASSIST TO BSC. VSS, NO ACUTE CHANGES AT THIS TIME. BED IN LOWEST POSITION WITH CALL LIGHT IN REACH. WILL CONTINUE TO MONITOR AND REPORT TO ONCOMING RN.
--- NOTE | 2020-10-29 18:21 | NUR ---
SHIFT SUMMARY PT AOX3. CALLS APPROPRIATELY. IRRITABLE AT TIMES AND VERY EMOTIONAL . PT MEDICATED FOR PAIN PER EMAR. PT WORKED WITH PT/OT. PT MEDICATED FOR ANXIETY. BED ALARM IS ON AND CALL LIGHT WITHIN REACH
--- NOTE | 2020-10-30 16:55 | NUR ---
SHIFT SUMMARY PT RESTARTED ON HOME MEDS, PLAVIX AND CREON TODAY. PT WORKED WITH PT/OT ALSO TODAY. ALONG WITH TAKING A SHOWER. PT MEDICATED FOR PAIN AND ANXIETY ONCE THIS SHIFT, SO FAR. PT ASKED FOR ANOTHER ANXIETY MED, BUT STATED SHE WILL SAVE IT FOR BEDTIME, LATER. NO ACUTE CHANGES IN ASSESSMENT AT THIS TIME. VS REVIEWED. PT RESTING IN BED. CALL LIGHT IN REACH.
--- NOTE | 2020-10-30 18:38 | NUR ---
HYPOGLYCEMIA/FUROSIMIDE ORDER BLOOD SUGAR AT 1710 WAS 48. PT GIVE 230ML OF OJ AND A POPCYCLE. INSULIN HELD. SUGAR RECHECKED AT 1737 AND WAS 58. PT THEN GIVEN DINNER TRAY TO EAT. DR. LOZOYA NOTIFIED OF SUGARS. ORDERED TO HOLD NPH TONIGHT. SUGAR INCREASED TO [address] LOZOYA ALSO NOTIFIED THAT THE PT WAS CRYING ABOUT FLUID RETENTION IN HER ROOM. DR. LOZOYA ORDERED 20MG OF FUROSIMIDE DAILY. OK TO START TODAY.
[2020-10-31] MEDS ORDERED: METO50ER PO (01:40)
--- NOTE | 2020-10-31 05:09 | NUR ---
SHIFT SUMAMRY A/O X3, ANXIOUS T/O NIGHT OCCASIIONALY MOANING IN PAIN. MEDICATED PER EMAR. ABD DISTENTION NOTED. 1 ASSIST TO BSC. VSS, NO ACUTE CHANGES AT THIS TIME. BED IN LOWEST POSITION WITH CALL LIGHT IN REACH. WILL CONTINUE TO MONITOR AND REPORT TO ONCOMING RN.
[2020-10-31 05:17] LABS: Hematocrit 21.6 % (33.0-51.0); Mean Corpuscular HGB 33.5 pg (26.0-34.0); Mean Corpuscular HGB Conc 32.4 g/dL (31.5-36.5); Mean Corpuscular Volume 103 fL (80-100); Mean Platelet Volume 10.8 fL (9.1-12.4); Platelet Count 134 K/mm3 (150-400); RDW Coefficient Variation 13.6 % (11.7-14.2); RDW Standard Deviation 51.4 fL (35.1-46.3); Red Blood Cell Count 2.09 M/mm3 (3.80-5.20)
[2020-10-31 05:51] LABS: Albumin, Blood 1.7 g/dL (3.4-5.0); Albumin/Globulin Ratio 0.5 (0.8-1.8); Bilirubin, Total 0.1 mg/dL (0.1-1.0); Bun/Creatinine Ratio 24.3 (12.0-20.0); Creatinine, Blood 1.52 mg/dL (0.40-1.00); Globulin, Blood 3.7 g/dL (2.2-4.0); Potassium, Blood 5.4 mmol/L (3.5-5.5); Total Protein, Blood 5.4 g/dL (6.4-8.2)
--- NOTE | 2020-10-31 06:28 | NUR ---
PHYSICIAN NOTIFY BUILDING INSPECTOR HOSPITALIST NOTIFIED [facility] OF 7.0 ON AM LABS. NO NEW ORDERS AT THIS TIME.
--- NOTE | 2020-10-31 16:44 | NUR ---
PT IS AO AND COOPERATIVE OF CARE. PT HAS BEEN ABLE TO MOVE TO CHAIR A ONE PERSON ASSIST AND BE UP FOR MEALS. PT HAS ANXIETY AND PAIN IN HER RIB AREA BOTH TREATED PER EMAR. PT HAS EDEMA THROUGHOUT HER BODY AND DR LOZOYA IS AWARE. WILL CONTINUE TO MONITOR.
--- NOTE | 2020-11-01 04:58 | NUR ---
SURGICAL SERVICES ASST SUMMARY PT HAS BEEN VERY ANXIOUS, IRRITABLE, DEMANDING, AND RUDE TO STAFF THROUGH THE NIGHT. PT CONSTANTLY YELLING OUT AND SCREAMING. MEDICATED FOR PAIN AND NAUSEA X1 AT BEDTIME. PT USES CALL LIGHT AND IF STAFF ISN'T IN HER ROOM WITHIN A FEW SECONDS PT BEGINS YELLING OUT AND THEN YELLS AT STAFF ONCE WE ARRIVE. THIS RN HAS EXPLAINED TO PT MULITIPLE TIMES THAT THE DISRESPECTFUL WAY SHE SPEAKS TO STAFF IS NOT ACCEPTABLE AND WILL NOT BE TOLERATED PT HOSPITAL POLICY. PT STATED "IT'S YOUR XOCHITL'S JOB TO MAKE ME COMFORTABLE. JUST LEAVE ME ALONE, I'M GOING TO BE REPORTING YOU GUYS". PER RN REPORT PT HAD THIS BEHAVIOR WITH EVERY RN/EXHAUST AND MUFFLER FITTER SHE HAS HAD WHILE HERE. VSS, WILL CONTINUE TO MONITOR.
[2020-11-01 05:04] LABS: Hematocrit 19.8 % (33.0-51.0); Hemoglobin 6.4 g/dL (11.5-16.0); Mean Corpuscular HGB Conc 32.3 g/dL (31.5-36.5); Mean Corpuscular Volume 105 fL (80-100); Mean Platelet Volume 11.2 fL (9.1-12.4); Platelet Count 152 K/mm3 (150-400); RDW Coefficient Variation 13.9 % (11.7-14.2); RDW Standard Deviation 52.2 fL (35.1-46.3); Red Blood Cell Count 1.88 M/mm3 (3.80-5.20); White Blood Cell Count 5.75 K/mm3 (4.00-11.30)
[2020-11-01 05:17] LABS: Bun/Creatinine Ratio 24.7 (12.0-20.0); Calcium, Blood 7.8 mg/dL (8.5-10.1); Creatinine, Blood 1.58 mg/dL (0.40-1.00); Potassium, Blood 5.7 mmol/L (3.5-5.5)
[2020-11-01 14:06] LABS: Hematocrit 27.1 % (33.0-51.0); Hemoglobin 8.8 g/dL (11.5-16.0)
--- NOTE | 2020-11-01 16:45 | NUR ---
CONSULT FOR NEPHROLOGY CALLED FOR ANASARCA. PT COMPLAINS OF BEING FULL OF WATER, EDEMA 2+ PITTING THROUGH OUT. PT IS HARD TO MOTIVATE TO MOVE AND HAS TO BE CONSTANTLY ENCOURAGED TO DO WHAT SHE CAN FOR HERSELF. SHE IS REY AND OFTEN HAS OUTBURSTS WHEN SHE IS FRUSTRATED OR DOESNT GET HER WAY. SHE IS USUALLY REDIRECTABLE BUT CAN BE DIFFICULT AT TIMES. PT IS ON FLUID RESTICTIONS. CALL LIGHT WITHIN REACH.
[2020-11-02 05:11] LABS: BASOPHILS ABSOLUTE AUTO 0.02 K/mm3 (0.00-0.23); BASOPHILS PERCENT AUTO 0 % (0-2); EOSINOPHILS ABSOLUTE AUTO 0.19 K/mm3 (0.00-0.68); EOSINOPHILS PERCENT AUTO 4 % (0-6); Hematocrit 24.8 % (33.0-51.0); Hemoglobin 7.9 g/dL (11.5-16.0); IMMATURE GRAN ABSOLUTE AUTO 0.05 K/mm3 (0.00-0.10); IMMATURE GRAN PERCENT AUTO 1 % (0-1); LYMPHOCYTES ABSOLUTE AUTO 2.23 K/mm3 (0.84-5.20); LYMPHOCYTES PERCENT AUTO 42 % (21-46); MONOCYTES ABSOLUTE AUTO 0.73 K/mm3 (0.16-1.47); MONOCYTES PERCENT AUTO 14 % (4-13); Mean Corpuscular HGB 33.1 pg (26.0-34.0); Mean Corpuscular HGB Conc 31.9 g/dL (31.5-36.5); Mean Corpuscular Volume 104 fL (80-100); Mean Platelet Volume 11.1 fL (9.1-12.4); NEUTROPHILS ABSOLUTE AUTO 2.13 K/mm3 (1.96-9.15); NEUTROPHILS PERCENT AUTO 40 % (41-73); Platelet Count 176 K/mm3 (150-400); RDW Coefficient Variation 15.7 % (11.7-14.2); RDW Standard Deviation 59.7 fL (35.1-46.3); Red Blood Cell Count 2.39 M/mm3 (3.80-5.20); White Blood Cell Count 5.35 K/mm3 (4.00-11.30)
[2020-11-02 05:52] LABS: Albumin, Blood 2.2 g/dL (3.4-5.0); Albumin/Globulin Ratio 0.6 (0.8-1.8); Bilirubin, Total 0.2 mg/dL (0.1-1.0); Bun/Creatinine Ratio 28.1 (12.0-20.0); Calcium, Blood 8.1 mg/dL (8.5-10.1); Creatinine, Blood 1.6 mg/dL (0.40-1.00); Globulin, Blood 3.5 g/dL (2.2-4.0); Magnesium, Blood 2.3 mg/dL (1.6-2.4); Phosphorus, Blood 6.1 mg/dL (2.5-4.9); Potassium, Blood 5.3 mmol/L (3.5-5.5); Total Protein, Blood 5.7 g/dL (6.4-8.2)
--- NOTE | 2020-11-02 06:24 | NUR ---
SHIFT SUMMARY- PT. ANXIOUS AND EMOTIONAL LAST NIGHT. HAD COMPLAINTS OF PAIN TO LEGS AND CASTANEDA. MEDICATED PER EMAR WITH GOOD EFFECT. 24 URINE ORDERED DURING THE NIGHT, UNABLE TO OBTAIN URINE SAMPLE DUE TO MIX OF URINE WITH STOOL SEVERAL TIMES T/O THE NIGHT. PERFORMED BLADDER SCAN PER ORDER WITH RESULT OF 15ML. PT. CONT/INCONT, SLEPT T/O OF THE NIGHT AND HAS NOT VOIDED THIS AM OF YET. CALL LIGHT WITHIN REACH, SIDE RAILS UPX2, AND BED ALARM ON FOR SAFETY. WILL CONT TO MONITOR.
--- NOTE | 2020-11-02 13:00 | NUR ---
Pt is labile, depressed and anxious. She complains of severe pain throughout her body. Right arm has gross movement, no fine motor skills demonstrated by pt. Pt seems to be feeling better after ativan and roxicodone. She is requesting that her pain medication be increased. Will follow up with physician with this pt's request for meds.
--- NOTE | 2020-11-02 15:47 | NUR ---
Called and left message for Dr. Yadav, whom has seen the patient already today and discussed plan of care with this RN. Pt has spoken to her son and they have made the decision to leave the hospial today in favor of taking her to [place], [place]. Pt reports that she is now homeless and her son has offered to take care of her in his home in [place]. The urgency now is that he has limited time and limited money. Per pt, he has time and enough money right now to get her now and take her. She states that she doesn't feel well enough to leave the hospital, however, she will go to the hospital upon arriving at [place] if she feels she needs to. Will await Dr. Yadav's call and follow up with return call if needed to notify. Charge nurse aware.
--- NOTE | 2020-11-02 17:09 | NUR ---
Spoke with Dr. Yadav. Pt will need to sign an AMA form to leave the hospital. Discussed pt's plans on going to [facility] when she arrives there and needs medical attention. No other concerns, pt will not recieve prescriptions with discharge, since it is against the physician's medical advice.
--- NOTE | 2020-11-02 22:17 | NUR ---
AMA SON CAME TO LICENSED TAX CONSULTANT PT. PT SIGNED AMA FORM, IV REMOVED. PT DC AT 2200, BELONGINGS IN PLACE.
== END 2020-11-02 22:21 | disposition left against medical advice (07) | DRG 638 ==
LOC: ER 19:27 → ICUW 19:28 → ER 22:23 → ICUW 22:23 → ICUE 23:20 → ICUW 10-25 07:10 → MEDS 10-25 16:14 → ICUW 10-25 16:14 → PCU 10-25 21:18 → MEDS 10-28 16:04
PROVIDERS: Emergency Medicine; Hospitalist; Internal Medicine; ADMIT Internal Medicine
DX: E11.00 Type 2 diabetes mellitus with hyperosmolarity without nonketotic hyperglycemic-hyperosmolar coma (NKHHC) (principal); K86.1 Other chronic pancreatitis; N17.9 Acute kidney failure, unspecified; E87.1 Hypo-osmolality and hyponatremia; G40.109 Localization-related (focal) (partial) symptomatic epilepsy and epileptic syndromes with simple partial seizures, not intractable, without status epilepticus; I69.398 Other sequelae of cerebral infarction; K21.9 Gastro-esophageal reflux disease without esophagitis; E11.42 Type 2 diabetes mellitus with diabetic polyneuropathy; F17.210 Nicotine dependence, cigarettes, uncomplicated; E86.0 Dehydration; F15.159 Other stimulant abuse with stimulant-induced psychotic disorder, unspecified; E87.5 Hyperkalemia; E88.09 Other disorders of plasma-protein metabolism, not elsewhere classified; E86.9 Volume depletion, unspecified; K70.30 Alcoholic cirrhosis of liver without ascites; F41.9 Anxiety disorder, unspecified; F32.9 Major depressive disorder, single episode, unspecified; N18.30 Chronic kidney disease, stage 3 unspecified; D63.1 Anemia in chronic kidney disease; Z53.29 Procedure and treatment not carried out because of patient's decision for other reasons; F10.10 Alcohol abuse, uncomplicated; F12.10 Cannabis abuse, uncomplicated; F19.10 Other psychoactive substance abuse, uncomplicated; E83.39 Other disorders of phosphorus metabolism; E11.22 Type 2 diabetes mellitus with diabetic chronic kidney disease; M81.0 Age-related osteoporosis without current pathological fracture; Z88.2 Allergy status to sulfonamides; Z88.1 Allergy status to other antibiotic agents; Z88.8 Allergy status to other drugs, medicaments and biological substances; Z98.890 Other specified postprocedural states; Z98.51 Tubal ligation status; I69.331 Monoplegia of upper limb following cerebral infarction affecting right dominant side; Z79.4 Long term (current) use of insulin
CPT/HCPCS: 12002; 36415; 36430; 71045; 76770; 80047; 80048; 80053; 81001; 82010; 82550; 82553; 82947; 83605; 83690; 83735; 83880; 84100; 84132; 84145; 84484; 85014; 85018; 85025; 85027; 85610; 86850; 86900; 86901; 86923; 87040; 93005; 93010; 93306; 94760; 96365; 96372; 96375; 96376; 97110; 97112; 97116; 97162; 97166; 97530; 97535; 99284-25; A9270; G0378; G0480; J0360; J0881; J1650; J1815; J1940; J1953; J1956; J2060; J2405; J2765; J3475; J7030; J7042; J7050; J7120; P9016; P9046; P9612